=== PATIENT | male | born 1930 | race Caucasian/White ===

== ENCOUNTER 2017-12-22 18:17 | Inpatient (IN) | payer MEDICARE, MEDICAID ==
[2017-12-22] MEDS ORDERED: Sodium Chloride 0.9% 1,000 ML IV ONE (19:24)
--- NOTE | 2017-12-22 19:30 | C.PDOC ---
History Of Present Illness 87 year old male presents to the emergency department with symptoms of an upper respiratory illness. Patient is a [facility] resident with known dementia and has been bed-bound for the last four years. Patient is experiencing increased lethargy with cough, fever, and nasal congestion for the last several days. Patient is also experiencing decreased attention, and is unable to provide any history due to his dementia. Patient's history was obtained from his son. Time Seen by Provider: 12/22/17 19:18 Chief Complaint (Nursing): Cough, Cold, Congestion History Per: Family (son) History/Exam Limitations: no limitations Onset/Duration Of Symptoms: Days Current Symptoms Are (Timing): Still Present Associated Symptoms: Fever, Cough, Nasal Congestion, Other (lethargy) Past Medical History Reviewed: Historical Data, Nursing Documentation, Vital Signs Vital Signs: Last Vital Signs Temp 98.7 F 12/23/17 01:42 Pulse 84 12/23/17 01:42 Resp 20 12/23/17 02:28 BP 105/56 L 12/23/17 01:42 Pulse Ox 98 12/23/17 02:28 - Medical History PMH: Alzheimer's Disease, HTN, Hyperlipidemia, Parkinson's Disease Surgical History: No Surg Hx, Pacemaker - [facility] Procedures INDIVID PSYCHOTHERAP NEC (02/27/14) Family History: States: No Known Family Hx - Social History Hx Alcohol Use: No Hx Substance Use: No - Immunization History Hx Tetanus Toxoid Vaccination: No Hx Influenza Vaccination: No Review Of Systems Review Of Systems: ROS cannot be obtained secondary to pt's inabilty to answer questions. Physical Exam - Physical Exam Appears: Non-toxic (afebrile), In Acute Distress (patient appears emaciated) Skin: Warm, Dry, Other (decreased turgor, no breakdown of skin appreciated) Head: Atraumatic, Normacephalic Eye(s): bilateral: Normal Inspection Ear(s): Bilateral: Normal Oral Mucosa: Dry (mild), No Drooling Throat: Normal, No Erythema, No Drooling Chest: Symmetrical, Other (left chest wall ) Cardiovascular: Rhythm Regular (within normal limits) Respiratory: Normal Breath Sounds (clear to auscultation bilaterally), No Stridor Gastrointestinal/Abdominal: Soft, No Tenderness, No Guarding, No Rebound Pulses: Left Radial: Normal, Right Radial: Normal, Left Dorsalis Pedis: Normal, Right Dorsalis Pedis: Normal Neurological/Psych: Other (nonverbal, responds to tactile stimuli with groans. Sensory exam cannot be assessed ) ED Course And Treatment - Laboratory Results Result Diagrams: 12/22/17 19:43 12/22/17 19:43 O2 Sat by Pulse Oximetry: 96 (RA) Pulse Ox Interpretation: Normal Medical Decision Making Medical Decision Making: Plan: CMP Lactic Acid Plasma CBC CXR One View NaCl IV Fluids Blood Culture Urinalysis Basic labs to be done, imaging to be obtained, patient will be re-evaluated. Impression: URI vs. Dehydration Patient's lab result in hypernatremia, severe dehydration, as well as severe pre -renal azotemia. Disposition - Disposition Disposition: HOSPITALIZED Disposition Time: 05:20 Condition: FAIR - Clinical Impression Clinical Impression: Pneumonia, Dehydration - Scribe Statement The provider has reviewed the documentation as recorded by the Scribe (Fede Hurtado) Provider Attestation: All medical record entries made by the Scribe were at my direction and personally dictated by me. I have reviewed the chart and agree that the record accurately reflects my personal performance of the history, physical exam, medical decision making, and the department course for this patient. I have also personally directed, reviewed, and agree with the discharge instructions and disposition.
--- NOTE | 2017-12-22 19:30 | C.PDOC ---
HPI: Influenza Time Seen by Provider: 12/22/17 19:18 Chief Complaint: Cough, Cold, Congestion Past Medical History Vital Signs: Last Vital Signs Temp 98.3 F 12/22/17 18:28 Pulse 82 12/22/17 18:28 Resp 20 12/22/17 18:28 BP 113/64 12/22/17 18:28 Pulse Ox 96 12/22/17 18:28 - Medical History PMH: Alzheimer's Disease, HTN, Hyperlipidemia, Parkinson's Disease Surgical History: Pacemaker - [facility] Procedures INDIVID PSYCHOTHERAP NEC (02/27/14) - Social History Hx Alcohol Use: No Hx Substance Use: No - Immunization History Hx Tetanus Toxoid Vaccination: No Hx Influenza Vaccination: No - ECG O2 Sat by Pulse Oximetry: 96 Disposition - Disposition
[2017-12-22] MEDS ORDERED: Sodium Chloride 0.9% 1,000 ML ONE (19:46)
[2017-12-22 19:48] LABS: BASO # 0.1 K/uL (0.0-0.2); BASO % 0.6 % (0.0-2.0); EOS # 0.1 K/uL (0.0-0.7); EOS % 1.2 % (0.0-4.0); HEMOGLOBIN 14.4 g/dL (12.0-18.0); LYMPH # 1.3 K/uL (1.0-4.3); LYMPH % 11.8 % (20.0-40.0); MEAN CELL VOLUME 94.8 fL (80.0-94.0); MEAN CORPUSCULAR HEMOGLOBIN 31.8 pg (27.0-31.0); MEAN CORPUSCULAR HGB CONC 33.5 g/dL (33.0-37.0); MEAN PLATELET VOLUME 9.9 fL (7.2-11.7); MONO # 0.3 K/uL (0.0-0.8); MONO % 2.9 % (0.0-10.0); NEUT % 83.5 % (50.0-75.0); RBC 4.52 Mil/uL (4.40-5.90); RED CELL DISTRIBUTION WIDTH 14.6 % (11.5-14.5); WHITE BLOOD COUNT 10.8 K/uL (4.8-10.8)
[2017-12-22 19:59] LABS: ALB/GLOB RATIO 1.1 (1.0-2.1); ALBUMIN 3.6 g/dL (3.5-5.0)
[2017-12-22] MEDS ORDERED: Azithromycin 500 MG in Sodium Chloride 0.9% 250 ML IVPB STA (21:30)
[2017-12-22] MEDS ORDERED: cefTRIAXone IV 1 gm in Dextros 0 ML IVPB ONE (21:41)
[2017-12-22] MEDS ORDERED: Sodium Chloride 0.9% 1,000 ML IV SCH ×2 (22:30→22:32)
[2017-12-23] MEDS ORDERED: Sodium Chloride 0.9% 1,000 ML ONE (00:19)
[2017-12-23] MEDS: Piperacill/Tazo 2.25gm in Dex 2.25 GM/50 ML BAG IVPB SCH ×5 (00:30→21:54)
[2017-12-23] MEDS: Carbidopa/Levodopa 25/250 PO SCH ×3 (06:21→21:24)
--- NOTE | 2017-12-23 08:49 | CP.PCM.HP ---
History of Present Illness - History of Present Illness History of Present Illness: History Of Present Illness 87 year old male presents to the emergency department with symptoms of an upper respiratory illness. Patient is a [facility] resident with known dementia and has been bed-bound for the last four years. Patient is experiencing increased lethargy with cough, fever, and nasal congestion for the last several days. Patient is also experiencing decreased attention, and is unable to provide any history due to his dementia. Patient's history was obtained from his son Present on Admission - Present on Admission Any Indicators Present on Admission: No Past Patient History - Past Medical History & Family History Past Medical History?: Yes - Past Social History Smoking Status: Never Smoked - CARDIAC Hx Hypertension: Yes Hx Pacemaker: Yes - PULMONARY Hx Respiratory Disorders: No - NEUROLOGICAL Hx Alzheimer's Disease: Yes Hx Parkinson's Disease: Yes - HEENT Hx HEENT Problems: No - RENAL Hx Chronic Kidney Disease: Yes Other/Comment: Chronic kidney dis.,BPH, - ENDOCRINE/METABOLIC Hx Endocrine Disorders: No - HEMATOLOGICAL/ONCOLOGICAL Hx Blood Disorders: No - INTEGUMENTARY Hx Dermatological Problems: No - MUSCULOSKELETAL/RHEUMATOLOGICAL Hx Falls: No - GASTROINTESTINAL Hx Gastrointestinal Disorders: No - GENITOURINARY/GYNECOLOGICAL Hx Genitourinary Disorders: Yes Hx Incontinence: Yes Hx Prostate Problems: Yes (BPH) - PSYCHIATRIC Hx Substance Use: No - SURGICAL HISTORY Hx Surgeries: Yes Other/Comment: Pacemaker insertion - ANESTHESIA Hx Anesthesia: Yes Hx Anesthesia Reactions: No Hx Malignant Hyperthermia: No Has any member of the family had a problem w/ anesthesia?: No Meds Allergies/Adverse Reactions: Allergies Allergy/AdvReac Type Severity Reaction Status Date / Time No Known Allergies Allergy Unverified 12/22/17 18:31 Results - Vital Signs Recent Vital Signs: Last Vital Signs Temp 98.7 F 12/23/17 07:00 Pulse 81 12/23/17 07:00 Resp 20 12/23/17 07:00 BP 105/63 12/23/17 07:00 Pulse Ox 98 12/23/17 07:00 - Labs Result Diagrams: 12/22/17 19:43 12/22/17 19:43 Labs: Laboratory Results - last 24 hr 12/22/17 12/22/17 12/22/17 19:43 19:43 20:08 WBC 10.8 RBC 4.52 Hgb 14.4 Hct 42.8 MCV 94.8 H MCH 31.8 H MCHC 33.5 RDW 14.6 H Plt Count 215 MPV 9.9 Neut % (Auto) 83.5 H Lymph % (Auto) 11.8 L [place] % (Auto) 2.9 Eos % (Auto) 1.2 Baso % (Auto) 0.6 Neut # (Auto) 9.0 H Lymph # (Auto) 1.3 [place] # (Auto) 0.3 Eos # (Auto) 0.1 Baso # (Auto) 0.1 Sodium 150 H Potassium 4.4 Chloride 110 H Carbon Dioxide 28 Anion Gap 17 BUN 76 H Creatinine 2.8 H Est GFR ( Amer) 26 Est GFR (Non-Af Amer) 22 Random Glucose 104 Lactic Acid 2.2 H Calcium 9.0 Total Bilirubin 0.9 AST 23 ALT 15 L Alkaline Phosphatase 125 Total Protein 6.7 Albumin 3.6 Globulin 3.1 Albumin/Globulin Ratio 1.1
[2017-12-23] MEDS ORDERED: PIMAVANSERIN TARTRATE PO SCH (10:00)
[2017-12-23] MEDS ORDERED: RASAGILINE MESYLATE 1 MG PO SCH (10:00)
--- NOTE | 2017-12-23 11:10 | RAD ---
PROCEDURE: CHEST RADIOGRAPH, 1 VIEW HISTORY: SOB COMPARISON: None available. FINDINGS: LUNGS: The lungs are well inflated. There is consolidation in the right lower lobe. PLEURA: No pneumothorax or pleural fluid seen. CARDIOVASCULAR: The heart is normal in size. There is a left-sided dual lead transvenous permanent pacing device OSSEOUS STRUCTURES: No significant abnormalities. VISUALIZED UPPER ABDOMEN: Normal. OTHER FINDINGS: None. IMPRESSION: Suspect right lower lobe pneumonia. Follow-up to resolution is advised.
[2017-12-23] MEDS ORDERED: Dextrose 5%/0.45% NS 1,000 ML IV SCH (12:00)
[2017-12-23 14:14] LABS: BASO % 0.3 % (0.0-2.0); EOS # 0.1 K/uL (0.0-0.7); EOS % 0.7 % (0.0-4.0); HEMOGLOBIN 12.2 g/dL (12.0-18.0); LYMPH # 1.5 K/uL (1.0-4.3); LYMPH % 9.5 % (20.0-40.0); MEAN CELL VOLUME 94.7 fL (80.0-94.0); MEAN CORPUSCULAR HEMOGLOBIN 31.6 pg (27.0-31.0); MEAN CORPUSCULAR HGB CONC 33.4 g/dL (33.0-37.0); MEAN PLATELET VOLUME 9.9 fL (7.2-11.7); MONO # 0.6 K/uL (0.0-0.8); MONO % 3.9 % (0.0-10.0); NEUT # 13.9 K/uL (1.8-7.0); NEUT % 85.6 % (50.0-75.0); NRBC % 0.1 % (0.0-2.0); PLATELET COUNT 200 K/uL (130-400); RBC 3.87 Mil/uL (4.40-5.90); RED CELL DISTRIBUTION WIDTH 14.2 % (11.5-14.5); WHITE BLOOD COUNT 16.2 K/uL (4.8-10.8)
[2017-12-23 14:39] LABS: CALCIUM 8.4 mg/dl (8.6-10.4)
[2017-12-23 14:41] LABS: EOSINOPHIL 1 % (0-4); LYMPHOCYTE 7 % (20-40); MONOCYTE 5 % (0-10); NEUTROPHIL 87 % (50-75); TOTAL CELLS COUNTED 100
[2017-12-23 14:42] LABS: PLATELET ESTIMATE NORMAL (NORMAL)
--- NOTE | 2017-12-23 15:38 | CP.PCM.CON ---
History of Present Illness - History of Present Illness History of Present Illness: Reason for Consult: Pneumonia A 89 year old male with PMHx of Alzheimer's Disease, Parkinson's Disease, HTN, and hyperlipidemia, presented to the ED for symptoms of an upper respiratory infection. Patient is unable to provide history due to dementia. According to ED note, patient has been living in a custodial for four years and is bed bound. He has been experiencing cough, fever, and nasal congestion with increased lethargy for several days. Review of systems unobtainable. PMHx: Alzheimer's Disease, Parkinson's Disease, HTN, HLD Allergies: NKDA Medications: Tamsulosin, Sensipar 30mg, Rasagiline mesylate 1mg, Oxybutynin 5mg , Pimavanserin tartrate, Lopressor 25mg, Ensure, Carbidopa/Levodopa 1 tab Q8, Calcitriol 0.25mL daily PSH: Pacemaker Social Hx: Lives in a custodial. Assessment/Plan: 1. Pneumonia CXR 12/22: Suspect right lower lobe pneumonia. Follow-up to resolution is advised. Afebrile since arrival. Lactic Acid 12/22: 2.2 WBC 12/22: 10.8 - Continue Piperacillin-Tazobactam 2. Hypernatremia -Management by primary team 3. Alzheimer's Disease -Management by primary team 4. Hypertension -Management by primary team 5. Parkinson's Disease -Management by primary team Past Patient History - Past Medical History & Family History Past Medical History?: Yes - Past Social History Smoking Status: Never Smoked - CARDIAC Hx Hypertension: Yes - PULMONARY Hx Respiratory Disorders: No - NEUROLOGICAL Hx Alzheimer's Disease: Yes Hx Parkinson's Disease: Yes - HEENT Hx HEENT Problems: No - RENAL Hx Chronic Kidney Disease: Yes Other/Comment: Chronic kidney dis.,BPH, - ENDOCRINE/METABOLIC Hx Endocrine Disorders: No - HEMATOLOGICAL/ONCOLOGICAL Hx Blood Disorders: No - INTEGUMENTARY Hx Dermatological Problems: No - MUSCULOSKELETAL/RHEUMATOLOGICAL Hx Falls: No - GASTROINTESTINAL Hx Gastrointestinal Disorders: No - GENITOURINARY/GYNECOLOGICAL Hx Genitourinary Disorders: Yes Hx Incontinence: Yes Hx Prostate Problems: Yes (BPH) - PSYCHIATRIC Hx Substance Use: No - SURGICAL HISTORY Hx Surgeries: Yes Other/Comment: Pacemaker insertion - ANESTHESIA Hx Anesthesia: Yes Hx Anesthesia Reactions: No Hx Malignant Hyperthermia: No Has any member of the family had a problem w/ anesthesia?: No Meds Allergies/Adverse Reactions: Allergies Allergy/AdvReac Type Severity Reaction Status Date / Time No Known Allergies Allergy Unverified 12/22/17 18:31 - Medications Medications: Current Medications Calcitriol (Rocaltrol) 0.25 mcg PO DAILY [facility] Last Admin: 12/23/17 11:27 Dose: 0.25 mcg Carbidopa/Levodopa (Sinemet) 1 tab PO Q8 [facility] Last Admin: 12/23/17 14:39 Dose: 1 tab Cinacalcet (Sensipar) 30 mg PO DAILY [facility] Last Admin: 12/23/17 11:27 Dose: 30 mg Heparin Sodium (Porcine) (Heparin) 5,000 units SC Q8 COUNT [facility]CLUD[facility] Last Admin: 12/23/17 14:13 Dose: 5,000 units Home Med (Pimavanserin Tartrate [Nuplazid]) 2 tab PO DAILY COUNT [facility]CLUDES THE [facility] Home Med (Rasagiline Mesylate [Rasagiline Mesylate]) 1 mg PO DAILY COUNT INCLUDES THE [facility] Piperacillin Sod/Tazobactam Sod (Zosyn 2.25 Gm Iv Premix) 2.25 gm in 50 mls @ 100 mls/hr IVPB Q6H COUNT [facility]CLUD[facility] PRN Reason: Protocol Last Admin: 12/23/17 11:29 Dose: 100 mls/hr Dextrose/Sodium Chloride (Dextrose 5%/0.45% Ns 1000 Ml) 1,000 mls @ 80 mls/hr IV .[id number] COUNT [facility]CLUDES [facility] Last Admin: 12/23/17 12:30 Dose: 80 mls/hr Metoprolol Tartrate (Lopressor) 25 mg PO DAILY [facility] Last Admin: 12/23/17 11:16 Dose: 25 mg Oxybutynin Chloride (Ditropan Tab) 5 mg PO DAILY [facility] Last Admin: 12/23/17 11:28 Dose: 5 mg Tamsulosin HCl (Flomax) 0.4 mg PO DAILY [facility] Last Admin: 12/23/17 11:16 Dose: 0.4 mg Results - Vital Signs Recent Vital Signs: Last Vital Signs Temp 98.7 F 12/23/17 07:00 Pulse 81 12/23/17 07:00 Resp 20 12/23/17 07:00 BP 105/63 12/23/17 11:16 Pulse Ox 98 12/23/17 07:00 - Labs Result Diagrams: 12/23/17 14:04 12/23/17 14:04 Labs: Laboratory Results - last 24 hr 12/22/17 12/22/17 12/22/17 19:43 19:43 20:08 WBC 10.8 RBC 4.52 Hgb 14.4 Hct 42.8 MCV 94.8 H MCH 31.8 H MCHC 33.5 RDW 14.6 H Plt Count 215 MPV 9.9 Neut % (Auto) 83.5 H Lymph % (Auto) 11.8 L [place] % (Auto) 2.9 Eos % (Auto) 1.2 Baso % (Auto) 0.6 Neut # (Auto) 9.0 H Lymph # (Auto) 1.3 [place] # (Auto) 0.3 Eos # (Auto) 0.1 Baso # (Auto) 0.1 Neutrophils % (Manual) Lymphocytes % (Manual) Monocytes % (Manual) Eosinophils % (Manual) Platelet Estimate RBC Morphology Sodium 150 H Potassium 4.4 Chloride 110 H Carbon Dioxide 28 Anion Gap 17 BUN 76 H Creatinine 2.8 H Est GFR ( Amer) 26 Est GFR (Non-Af Amer) 22 Random Glucose 104 Lactic Acid 2.2 H Calcium 9.0 Total Bilirubin 0.9 AST 23 ALT 15 L Alkaline Phosphatase 125 Total Protein 6.7 Albumin 3.6 Globulin 3.1 Albumin/Globulin Ratio 1.1 12/23/17 12/23/17 12/23/17 14:04 14:04 14:04 WBC 16.2 H RBC 3.87 L Hgb 12.2 D Hct 36.6 MCV 94.7 H MCH 31.6 H MCHC 33.4 RDW 14.2 Plt Count 200 MPV 9.9 Neut % (Auto) 85.6 H Lymph % (Auto) 9.5 L [place] % (Auto) 3.9 Eos % (Auto) 0.7 Baso % (Auto) 0.3 Neut # (Auto) 13.9 H Lymph # (Auto) 1.5 [place] # (Auto) 0.6 Eos # (Auto) 0.1 Baso # (Auto) 0.0 Neutrophils % (Manual) 87 H Lymphocytes % (Manual) 7 L Monocytes % (Manual) 5 Eosinophils % (Manual) 1 Platelet Estimate Normal RBC Morphology Normal Sodium 153 H Potassium 4.4 Chloride 111 H Carbon Dioxide 27 Anion Gap 19 BUN 66 H Creatinine 2.7 H Est GFR ( Amer) 27 Est GFR (Non-Af Amer) 23 Random Glucose 86 Lactic Acid 1.6 Calcium 8.4 L Total Bilirubin AST ALT Alkaline Phosphatase Total Protein Albumin Globulin Albumin/Globulin Ratio
[2017-12-23] MEDS: Dextrose 5%/0.45% NS 1,000 ML IV SCH (16:35)
[2017-12-23] MEDS: Sodium Chloride 0.45% 1,000 ML IV SCH ×4 (17:45→20:30)
[2017-12-23 19:35] LABS: SQUAMOUS EPITHIAL < 1 /hpf (0-5); URINE BACTERIA RARE (<OCC); URINE BILIRUBIN NEGATIVE (NEGATIVE); URINE BLOOD NEGATIVE (NEGATIVE); URINE CLARITY Clear (Clear); URINE COLOR Yellow (YELLOW); URINE GLUCOSE (UA) NORMAL (Normal); URINE LEUKOCYTE ESTERASE TRACE Leu/uL (Negative); URINE PROTEIN NEGATIVE (NEGATIVE); URINE UROBILINOGEN NORMAL mg/dL (0.2-1.0)
--- NOTE | 2017-12-24 00:36 | CP.PCM.PN ---
Subjective - Date & Time of Evaluation Date of Evaluation: 12/23/17 Time of Evaluation: 18:00 - Subjective Subjective: pt seen and examined c/o cough, fever, and nasal congestion with increased lethargy for several days. Objective - Vital Signs/Intake and Output Vital Signs (last 24 hours): Temp Pulse Resp BP Pulse Ox 97.9 F 71 20 96/61 L 98 12/23/17 23:59 12/23/17 23:59 12/23/17 23:59 12/23/17 23:59 12/23/17 23:59 Intake and Output: 12/23/17 12/24/17 18:59 06:59 Intake Total 730 1310 Output Total 100 Balance 730 1210 - Medications Medications: Current Medications Calcitriol (Rocaltrol) 0.25 mcg PO DAILY [facility] Last Admin: 12/23/17 11:27 Dose: 0.25 mcg Carbidopa/Levodopa (Sinemet) 1 tab PO Q8 [facility] Last Admin: 12/23/17 21:24 Dose: 1 tab Cinacalcet (Sensipar) 30 mg PO DAILY [facility] Last Admin: 12/23/17 11:27 Dose: 30 mg Heparin Sodium (Porcine) (Heparin) 5,000 units SC Q8 [facility] Last Admin: 12/23/17 21:24 Dose: 5,000 units Piperacillin Sod/Tazobactam Sod (Zosyn 2.25 Gm Iv Premix) 2.25 gm in 50 mls @ 100 mls/hr IVPB Q6H [facility] PRN Reason: Protocol Last Admin: 12/23/17 21:54 Dose: 100 mls/hr Dextrose/Sodium Chloride (Dextrose 5%/0.45% Ns 1000 Ml) 1,000 mls @ 100 mls/hr IV .Q10H [facility] Last Admin: 12/23/17 16:35 Dose: 100 mls/hr Metoprolol Tartrate (Lopressor) 25 mg PO DAILY [facility] Oxybutynin Chloride (Ditropan Tab) 5 mg PO DAILY [facility] Last Admin: 12/23/17 11:28 Dose: 5 mg Tamsulosin HCl (Flomax) 0.4 mg PO DAILY [facility] Last Admin: 12/23/17 11:16 Dose: 0.4 mg - Labs Labs: 12/23/17 14:04 12/23/17 14:04 - Constitutional Appears: No Acute Distress - Head Exam Head Exam: ATRAUMATIC, NORMAL INSPECTION, NORMOCEPHALIC - Eye Exam Eye Exam: EOMI, Normal appearance, PERRL Pupil Exam: NORMAL ACCOMODATION, PERRL - Respiratory Exam Respiratory Exam: Clear to Ausculation Bilateral, NORMAL BREATHING PATTERN - Cardiovascular Exam Cardiovascular Exam: REGULAR RHYTHM, +S1, +S2. absent: Murmur - GI/Abdominal Exam GI & Abdominal Exam: Soft, Normal Bowel Sounds. absent: Tenderness - Rectal Exam Rectal Exam: Deferred Assessment and Plan (1) Alzheimer disease Status: Acute (2) Parkinsons disease Status: Acute (3) Dehydration Status: Acute (4) Pneumonia Status: Acute
[2017-12-24] MEDS: Dextrose 5%/0.45% NS 1,000 ML IV SCH ×4 (01:38→22:06)
[2017-12-24] MEDS: Piperacill/Tazo 2.25gm in Dex 2.25 GM/50 ML BAG IVPB SCH ×4 (04:16→22:00)
[2017-12-24] MEDS: Carbidopa/Levodopa 25/250 PO SCH ×3 (05:26→21:54)
[2017-12-24 07:39] LABS: BASO % 0.4 % (0.0-2.0); EOS # 0.3 K/uL (0.0-0.7); EOS % 3.2 % (0.0-4.0); HEMOGLOBIN 10.9 g/dL (12.0-18.0); LYMPH # 1.1 K/uL (1.0-4.3); LYMPH % 13.2 % (20.0-40.0); MEAN CELL VOLUME 94.8 fL (80.0-94.0); MEAN CORPUSCULAR HEMOGLOBIN 31.7 pg (27.0-31.0); MEAN CORPUSCULAR HGB CONC 33.5 g/dL (33.0-37.0); MEAN PLATELET VOLUME 9.9 fL (7.2-11.7); MONO # 0.5 K/uL (0.0-0.8); MONO % 5.6 % (0.0-10.0); NEUT # 6.6 K/uL (1.8-7.0); NEUT % 77.6 % (50.0-75.0); RBC 3.45 Mil/uL (4.40-5.90); RED CELL DISTRIBUTION WIDTH 14.3 % (11.5-14.5); WHITE BLOOD COUNT 8.5 K/uL (4.8-10.8)
[2017-12-24 07:46] LABS: CALCIUM 7.7 mg/dl (8.6-10.4)
--- NOTE | 2017-12-24 14:33 | CARD ---
APPROVED REPORT EKG Measurement Heart [id number] 172P [id number] <Conclusion> AV dual-paced rhythm Abnormal ECG
--- NOTE | 2017-12-24 17:03 | CP.PCM.PN ---
Subjective - Date & Time of Evaluation Date of Evaluation: 12/24/17 Time of Evaluation: 12:30 - Subjective Subjective: Patient seen and examined at bedside today Patient resting comfortably in bed in no distress. Patient more alert during exam today. Patient denies shortness of breath, cough, or chest pain. Patient has no complaints Assessment/Plan: 1. Pneumonia, improving CXR 12/22: Suspect right lower lobe pneumonia. Follow-up to resolution is advised. WBC down-trending, 12/24: 8.5 (down from 10.8) Continues to be Afebrile. Lactic Acid decreased, repeat 12/23: 1.6 - Continue Piperacillin-Tazobactam 2. Hypernatremia, resolved 3. Alzheimer's Disease -Management by primary team 4. Hypertension -Management by primary team 5. Parkinson's Disease -Management by primary team Objective - Vital Signs/Intake and Output Vital Signs (last 24 hours): Temp Pulse Resp BP Pulse Ox 97.3 F L 86 20 92/60 L 96 12/24/17 07:44 12/24/17 07:44 12/24/17 07:44 12/24/17 10:29 12/24/17 07:44 Intake and Output: 12/24/17 12/24/17 06:59 18:59 Intake Total 2230 1040 Output Total 600 800 Balance 1630 240 - Medications Medications: Current Medications Calcitriol (Rocaltrol) 0.25 mcg PO DAILY [facility] Last Admin: 12/24/17 10:29 Dose: 0.25 mcg Carbidopa/Levodopa (Sinemet) 1 tab PO Q8 [facility] Last Admin: 12/24/17 13:53 Dose: 1 tab Cinacalcet (Sensipar) 30 mg PO DAILY [facility] Last Admin: 12/24/17 10:29 Dose: 30 mg Heparin Sodium (Porcine) (Heparin) 5,000 units SC Q8 [facility] Last Admin: 12/24/17 13:51 Dose: 5,000 units Piperacillin Sod/Tazobactam Sod (Zosyn 2.25 Gm Iv Premix) 2.25 gm in 50 mls @ 100 mls/hr IVPB Q6H [facility] PRN Reason: Protocol Last Admin: 12/24/17 16:13 Dose: 100 mls/hr Dextrose/Sodium Chloride (Dextrose 5%/0.45% Ns 1000 Ml) 1,000 mls @ 100 mls/hr IV .Q10H [facility] Last Admin: 12/24/17 13:51 Dose: 100 mls/hr Oxybutynin Chloride (Ditropan Tab) 5 mg PO DAILY [facility] Last Admin: 12/24/17 10:29 Dose: 5 mg Tamsulosin HCl (Flomax) 0.4 mg PO DAILY [facility] Last Admin: 12/24/17 10:29 Dose: 0.4 mg - Labs Labs: 12/24/17 07:22 12/24/17 07:22
--- NOTE | 2017-12-24 23:43 | CP.PCM.PN ---
Subjective - Date & Time of Evaluation Date of Evaluation: 12/24/17 Time of Evaluation: 18:40 - Subjective Subjective: Pt seen and examined at bedside, afebrile,is confused,but more alert then before , some of his answers are appropriate, pt is on antibiotics, nebulizer treatment for pneumonia Objective - Vital Signs/Intake and Output Vital Signs (last 24 hours): Temp Pulse Resp BP Pulse Ox 97.5 F L 87 20 114/69 95 12/24/17 15:00 12/24/17 15:00 12/24/17 15:00 12/24/17 15:00 12/24/17 15:00 Intake and Output: 12/24/17 12/25/17 18:59 06:59 Intake Total 1040 800 Output Total 800 Balance 240 800 - Medications Medications: Current Medications Calcitriol (Rocaltrol) 0.25 mcg PO DAILY [facility] Last Admin: 12/24/17 10:29 Dose: 0.25 mcg Carbidopa/Levodopa (Sinemet) 1 tab PO Q8 [facility] Last Admin: 12/24/17 21:54 Dose: 1 tab Cinacalcet (Sensipar) 30 mg PO DAILY [facility] Last Admin: 12/24/17 10:29 Dose: 30 mg Heparin Sodium (Porcine) (Heparin) 5,000 units SC Q8 [facility] Last Admin: 12/24/17 21:53 Dose: 5,000 units Piperacillin Sod/Tazobactam Sod (Zosyn 2.25 Gm Iv Premix) 2.25 gm in 50 mls @ 100 mls/hr IVPB Q6H [facility] PRN Reason: Protocol Last Admin: 12/24/17 16:13 Dose: 100 mls/hr Dextrose/Sodium Chloride (Dextrose 5%/0.45% Ns 1000 Ml) 1,000 mls @ 100 mls/hr IV .Q10H [facility] Last Admin: 12/24/17 22:06 Dose: Not Given Oxybutynin Chloride (Ditropan Tab) 5 mg PO DAILY [facility] Last Admin: 12/24/17 10:29 Dose: 5 mg Tamsulosin HCl (Flomax) 0.4 mg PO DAILY [facility] Last Admin: 12/24/17 10:29 Dose: 0.4 mg - Labs Labs: 12/24/17 07:22 12/24/17 07:22 - Constitutional Appears: No Acute Distress - Head Exam Head Exam: ATRAUMATIC, NORMAL INSPECTION, NORMOCEPHALIC - Eye Exam Eye Exam: EOMI, Normal appearance, PERRL Pupil Exam: NORMAL ACCOMODATION, PERRL - Respiratory Exam Respiratory Exam: Decreased Breath Sounds, Rales, Rhonchi Additional comments: b/l scattered rales - Cardiovascular Exam Cardiovascular Exam: REGULAR RHYTHM, +S1, +S2. absent: Murmur - GI/Abdominal Exam GI & Abdominal Exam: Soft, Normal Bowel Sounds. absent: Tenderness - Neurological Exam Neurological Exam: Alert, Oriented x3 - Skin Skin Exam: Dry, Intact, Normal Color, Warm Assessment and Plan (1) Alzheimer disease Status: Acute (2) Parkinsons disease Status: Acute (3) Dehydration Status: Acute (4) Pneumonia Assessment & Plan: antibiotics pulmonary follow up nebulizer treatment Status: Acute
[2017-12-25] MEDS: Dextrose 5%/0.45% NS 1,000 ML IV SCH ×2 (02:00→13:30)
[2017-12-25] MEDS: Piperacill/Tazo 2.25gm in Dex 2.25 GM/50 ML BAG IVPB SCH ×4 (04:00→22:30)
[2017-12-25] MEDS: Carbidopa/Levodopa 25/250 PO SCH ×3 (05:45→22:11)
[2017-12-25 07:40] LABS: BASO % 0.4 % (0.0-2.0); EOS # 0.2 K/uL (0.0-0.7); EOS % 4.2 % (0.0-4.0); HEMOGLOBIN 11.8 g/dL (12.0-18.0); LYMPH # 0.8 K/uL (1.0-4.3); LYMPH % 14.1 % (20.0-40.0); MEAN CELL VOLUME 93.2 fL (80.0-94.0); MEAN CORPUSCULAR HEMOGLOBIN 32.1 pg (27.0-31.0); MEAN CORPUSCULAR HGB CONC 34.4 g/dL (33.0-37.0); MONO # 0.3 K/uL (0.0-0.8); MONO % 5.5 % (0.0-10.0); NEUT # 4.4 K/uL (1.8-7.0); NEUT % 75.8 % (50.0-75.0); RBC 3.69 Mil/uL (4.40-5.90); WHITE BLOOD COUNT 5.8 K/uL (4.8-10.8)
[2017-12-25 07:48] LABS: CALCIUM 7.7 mg/dl (8.6-10.4)
--- NOTE | 2017-12-25 17:38 | CP.PCM.PN ---
Subjective - Date & Time of Evaluation Date of Evaluation: 12/25/17 Time of Evaluation: 11:40 - Subjective Subjective: Patient seen and examined at bedside today Patient resting comfortably in bed in no distress. Patient unable to answer questions due to mental status. Assessment/Plan: 1. Pneumonia, improving - Repeat CXR - Continue Antibiotics Objective - Vital Signs/Intake and Output Vital Signs (last 24 hours): Temp Pulse Resp BP Pulse Ox 97.5 F L 86 20 117/69 95 12/25/17 15:00 12/25/17 15:00 12/25/17 15:00 12/25/17 15:00 12/25/17 15:00 Intake and Output: 12/25/17 12/25/17 06:59 18:59 Intake Total 1800 1000 Output Total 700 400 Balance 1100 600 - Medications Medications: Current Medications Calcitriol (Rocaltrol) 0.25 mcg PO DAILY [facility] Last Admin: 12/25/17 10:50 Dose: 0.25 mcg Carbidopa/Levodopa (Sinemet) 1 tab PO Q8 [facility] Last Admin: 12/25/17 13:30 Dose: 1 tab Cinacalcet (Sensipar) 30 mg PO DAILY [facility] Last Admin: 12/25/17 10:49 Dose: 30 mg Heparin Sodium (Porcine) (Heparin) 5,000 units SC Q8 [facility] Last Admin: 12/25/17 13:32 Dose: 5,000 units Piperacillin Sod/Tazobactam Sod (Zosyn 2.25 Gm Iv Premix) 2.25 gm in 50 mls @ 100 mls/hr IVPB Q6H [facility] PRN Reason: Protocol Last Admin: 12/25/17 17:09 Dose: 100 mls/hr Dextrose/Sodium Chloride (Dextrose 5%/0.45% Ns 1000 Ml) 1,000 mls @ 100 mls/hr IV .Q10H [facility] Last Admin: 12/25/17 13:30 Dose: 100 mls/hr Oxybutynin Chloride (Ditropan Tab) 5 mg PO DAILY [facility] Last Admin: 12/25/17 10:50 Dose: 5 mg Tamsulosin HCl (Flomax) 0.4 mg PO DAILY [facility] Last Admin: 12/25/17 10:50 Dose: 0.4 mg - Labs Labs: 12/25/17 07:20 12/25/17 07:20
[2017-12-26] MEDS: Dextrose 5%/0.45% NS 1,000 ML IV SCH ×4 (01:27→13:41)
[2017-12-26] MEDS: Piperacill/Tazo 2.25gm in Dex 2.25 GM/50 ML BAG IVPB SCH ×4 (04:59→21:32)
[2017-12-26] MEDS: Carbidopa/Levodopa 25/250 PO SCH ×3 (05:03→21:32)
--- NOTE | 2017-12-26 05:26 | CP.PCM.PN ---
Subjective - Date & Time of Evaluation Date of Evaluation: 12/25/17 Time of Evaluation: 19:00 - Subjective Subjective: Patient seen and examined at bedside today, Patient resting comfortably in bed in no distress. Patient unable to answer questions due to mental status.Pneumonia, improving, pt is for Repeat CXR and Continue Antibiotics Objective - Vital Signs/Intake and Output Vital Signs (last 24 hours): Temp Pulse Resp BP Pulse Ox 98 F 63 18 121/80 98 12/25/17 23:12 12/25/17 23:12 12/25/17 23:12 12/25/17 23:12 12/25/17 23:12 Intake and Output: 12/25/17 12/26/17 18:59 06:59 Intake Total 1000 850 Output Total 400 Balance 600 850 - Medications Medications: Current Medications Calcitriol (Rocaltrol) 0.25 mcg PO DAILY [facility] Last Admin: 12/25/17 10:50 Dose: 0.25 mcg Carbidopa/Levodopa (Sinemet) 1 tab PO Q8 [facility] Last Admin: 12/26/17 05:03 Dose: 1 tab Cinacalcet (Sensipar) 30 mg PO DAILY [facility] Last Admin: 12/25/17 10:49 Dose: 30 mg Heparin Sodium (Porcine) (Heparin) 5,000 units SC Q8 [facility] Last Admin: 12/26/17 05:03 Dose: 5,000 units Piperacillin Sod/Tazobactam Sod (Zosyn 2.25 Gm Iv Premix) 2.25 gm in 50 mls @ 100 mls/hr IVPB Q6H [facility] PRN Reason: Protocol Last Admin: 12/26/17 04:59 Dose: 100 mls/hr Dextrose/Sodium Chloride (Dextrose 5%/0.45% Ns 1000 Ml) 1,000 mls @ 100 mls/hr IV .Q10H [facility] Last Admin: 12/26/17 04:15 Dose: Not Given Oxybutynin Chloride (Ditropan Tab) 5 mg PO DAILY [facility] Last Admin: 12/25/17 10:50 Dose: 5 mg Tamsulosin HCl (Flomax) 0.4 mg PO DAILY [facility] Last Admin: 12/25/17 10:50 Dose: 0.4 mg - Labs Labs: 12/25/17 07:20 12/25/17 07:20 Assessment and Plan (1) Alzheimer disease Status: Acute (2) Parkinsons disease Status: Acute (3) Dehydration Status: Acute (4) Pneumonia Status: Acute
[2017-12-26 10:01] VITALS: BP 121/76; RESP 20; TEMP 97.4; O2SAT 96
--- NOTE | 2017-12-26 13:00 | CP.PCM.PN ---
Subjective - Date & Time of Evaluation Date of Evaluation: 12/26/17 Time of Evaluation: 11:40 - Subjective Subjective: Patient seen and examined at bedside today Patient resting comfortably in bed in no distress. Patient unable to answer questions due to mental status. Assessment/Plan: 1. Pneumonia, improving - Continue Piperacillin-Tazobactam - Repeat CXR Objective - Vital Signs/Intake and Output Vital Signs (last 24 hours): Temp Pulse Resp BP Pulse Ox 97.4 F L 89 20 121/76 96 12/26/17 07:00 12/26/17 07:00 12/26/17 07:00 12/26/17 07:00 12/26/17 07:00 Intake and Output: 12/26/17 12/26/17 06:59 18:59 Intake Total 850 920 Output Total 300 Balance 850 620 - Medications Medications: Current Medications Calcitriol (Rocaltrol) 0.25 mcg PO DAILY [facility] Last Admin: 12/26/17 10:56 Dose: 0.25 mcg Carbidopa/Levodopa (Sinemet) 1 tab PO Q8 [facility] Last Admin: 12/26/17 05:03 Dose: 1 tab Cinacalcet (Sensipar) 30 mg PO DAILY [facility] Last Admin: 12/26/17 10:57 Dose: 30 mg Piperacillin Sod/Tazobactam Sod (Zosyn 2.25 Gm Iv Premix) 2.25 gm in 50 mls @ 100 mls/hr IVPB Q6H [facility] PRN Reason: Protocol Last Admin: 12/26/17 10:57 Dose: 100 mls/hr Dextrose/Sodium Chloride (Dextrose 5%/0.45% Ns 1000 Ml) 1,000 mls @ 100 mls/hr IV .Q10H [facility] Last Admin: 12/26/17 11:01 Dose: 100 mls/hr Oxybutynin Chloride (Ditropan Tab) 5 mg PO DAILY [facility] Last Admin: 12/26/17 10:57 Dose: 5 mg Tamsulosin HCl (Flomax) 0.4 mg PO DAILY [facility] Last Admin: 12/26/17 10:56 Dose: 0.4 mg - Labs Labs: 12/25/17 07:20 12/25/17 07:20
--- NOTE | 2017-12-26 14:54 | RAD ---
HISTORY: pnemonia COMPARISON: Portable chest 12/22/2017. FINDINGS: LUNGS: Crowding of the bronchovascular markings is likely caused by elevator hemidiaphragm which is in turn likely a function of distended large and small bowel loops throughout the abdomen. Limited left basilar airspace disease not excluded obscuring the left hemidiaphragm somewhat. PLEURA: No significant pleural effusion identified, no pneumothorax apparent. CARDIOVASCULAR: Normal. OSSEOUS STRUCTURES: No significant abnormalities. VISUALIZED UPPER ABDOMEN: Potential bowel ileus or obstruction based on distended small large-bowel loops appreciated. Ileus is favored based on images submitted. Consider follow-up abdomen radiograph series or CT if not already evaluated. OTHER FINDINGS: Bipolar cardiac pacemaker again identified. IMPRESSION: Crowding of bronchovascular markings is favored over airspace disease right base with limited atelectasis or infiltrate identified in the left base. Incidental extensive small large-bowel dilatation the abdomen suggestive of probable ileus. Clinically correlate. Follow-up abdominal imaging is advised if not already of performed.
--- NOTE | 2017-12-26 15:04 | CP.PCM.PN ---
Subjective - Date & Time of Evaluation Date of Evaluation: 12/26/17 Time of Evaluation: 14:58 - Subjective Subjective: PT SEEN THIS MORNING BY DR. MAHARAJ AND CLEARED FOR D/C FROM PULM STANDPOINT. URINE CULTURE (FINAL RESULT) REC'D AND DISCUSSED WITH DR. HAWK. PT CLEARED FOR D/C BACK TO [facility] TODAY WITH AMPICILLIN PO FOR 10 DAYS. URINE CX TO BE REPEATED AFTER 10 DAY ABX REGIMEN COMPLETED AND DR. HAWK TO F/U WITH THOSE RESULTS. PT TO BE FOLLOWED BY DR. HAWK IN [facility]. SW AWARE OF DC AND WILL ARRANGE TRANSPORTATION FOR THIS EVENING. NO FURTHER ORDERS. -PLACE UNDER THE SERVICE OF DR. HAWK WHILE AT [facility] ---CALL UPON ARRIVAL TO FACILITY FOR ADMITTING ORDERS. -CONTINUE MEDICATIONS PER THE MED REC FORM---CHANGES CAN BE MADE BY DR. HAWK. -CONTINUE AMPICILLIN ORDERED ON THE MED REC FOR 10 DAYS---TO BE STARTED ON (EVENING DOSE) AND THE LAST DOSE SHOULD BE GIVEN DURING THE EVENING OF 01/05/18. -REPEAT URINE CULTURE ON 01/06/18 AFTER THE AMPICILLIN IS COMPLETED---SEND RESULTS TO DR. HAWK. -PHYSICAL THERAPY TOLERATED. -FOR FURTHER ORDERS, CONTACT DR. HAWK'S OFFICE. Objective - Vital Signs/Intake and Output Vital Signs (last 24 hours): Temp Pulse Resp BP Pulse Ox 97.4 F L 89 20 121/76 96 12/26/17 07:00 12/26/17 07:00 12/26/17 07:00 12/26/17 07:00 12/26/17 07:00 Intake and Output: 12/26/17 12/26/17 06:59 18:59 Intake Total 850 1970 Output Total 700 Balance 850 1270 - Medications Medications: Current Medications Calcitriol (Rocaltrol) 0.25 mcg PO DAILY [facility] Last Admin: 12/26/17 10:56 Dose: 0.25 mcg Carbidopa/Levodopa (Sinemet) 1 tab PO Q8 [facility] Last Admin: 12/26/17 13:40 Dose: 1 tab Cinacalcet (Sensipar) 30 mg PO DAILY [facility] Last Admin: 12/26/17 10:57 Dose: 30 mg Piperacillin Sod/Tazobactam Sod (Zosyn 2.25 Gm Iv Premix) 2.25 gm in 50 mls @ 100 mls/hr IVPB Q6H [facility] PRN Reason: Protocol Last Admin: 12/26/17 10:57 Dose: 100 mls/hr Dextrose/Sodium Chloride (Dextrose 5%/0.45% Ns 1000 Ml) 1,000 mls @ 100 mls/hr IV .Q10H [facility] Last Admin: 12/26/17 13:41 Dose: Not Given Oxybutynin Chloride (Ditropan Tab) 5 mg PO DAILY [facility] Last Admin: 12/26/17 10:57 Dose: 5 mg Tamsulosin HCl (Flomax) 0.4 mg PO DAILY [facility] Last Admin: 12/26/17 10:56 Dose: 0.4 mg - Labs Labs: 12/25/17 07:20 12/25/17 07:20
[2017-12-26 17:00] VITALS: PULSE 78
--- NOTE | 2017-12-27 03:47 | CP.PCM.DIS ---
Provider - Provider Date of Admission: 12/22/17 21:28 Attending physician: Adrian Parekh MD Time Spent in preparation of Discharge (in minutes): 45 Diagnosis - Discharge Diagnosis (1) Alzheimer disease Status: Acute (2) Parkinsons disease Status: Acute (3) Dehydration Status: Acute (4) Pneumonia Status: Acute Hospital Course - Lab Results Lab Results: Micro Results 12/23/17 19:22 Urine Urine Culture - Final Enterococcus Faecalis 12/22/17 08:19 Blood Blood Culture - Preliminary NO GROWTH AFTER 3 DAYS 12/22/17 08:19 Blood Blood Culture - Preliminary NO GROWTH AFTER 3 DAYS Most Recent Lab Values WBC 5.8 K/uL (4.8-10.8) 12/25/17 07:20 RBC 3.69 Mil/uL (4.40-5.90) L 12/25/17 07:20 Hgb 11.8 g/dL (12.0-18.0) L 12/25/17 07:20 Hct 34.4 % (35.0-51.0) L 12/25/17 07:20 MCV 93.2 fL (80.0-94.0) 12/25/17 07:20 MCH 32.1 pg (27.0-31.0) H 12/25/17 07:20 MCHC 34.4 g/dL (33.0-37.0) 12/25/17 07:20 RDW 14.0 % (11.5-14.5) 12/25/17 07:20 Plt Count 169 K/uL (130-400) 12/25/17 07:20 MPV 10.0 fL (7.2-11.7) 12/25/17 07:20 Neut % (Auto) 75.8 % (50.0-75.0) H 12/25/17 07:20 Lymph % (Auto) 14.1 % (20.0-40.0) L 12/25/17 07:20 [place] % (Auto) 5.5 % (0.0-10.0) 12/25/17 07:20 Eos % (Auto) 4.2 % (0.0-4.0) H 12/25/17 07:20 Baso % (Auto) 0.4 % (0.0-2.0) 12/25/17 07:20 Neut # (Auto) 4.4 K/uL (1.8-7.0) 12/25/17 07:20 Lymph # (Auto) 0.8 K/uL (1.0-4.3) L 12/25/17 07:20 [place] # (Auto) 0.3 K/uL (0.0-0.8) 12/25/17 07:20 Eos # (Auto) 0.2 K/uL (0.0-0.7) 12/25/17 07:20 Baso # (Auto) 0.0 K/uL (0.0-0.2) 12/25/17 07:20 Neutrophils % (Manual) 87 % (50-75) H 12/23/17 14:04 Lymphocytes % (Manual) 7 % (20-40) L 12/23/17 14:04 Monocytes % (Manual) 5 % (0-10) 12/23/17 14:04 Eosinophils % (Manual) 1 % (0-4) 12/23/17 14:04 Platelet Estimate Normal (NORMAL) 12/23/17 14:04 RBC Morphology Normal 12/23/17 14:04 Sodium 144 mmol/L (132-148) 12/25/17 07:20 Potassium 3.6 mmol/L (3.6-5.2) 12/25/17 07:20 Chloride 109 mmol/L (98-107) H 12/25/17 07:20 Carbon Dioxide 23 mmol/L (22-30) 12/25/17 07:20 Anion Gap 15 (10-20) 12/25/17 07:20 BUN 44 mg/dL (9-20) H 12/25/17 07:20 Creatinine 2.2 mg/dL (0.8-1.5) H 12/25/17 07:20 Est GFR ( Amer) 35 12/25/17 07:20 Est GFR (Non-Af Amer) 29 12/25/17 07:20 POC Glucose (mg/dL) 98 mg/dL (65-110) 12/26/17 21:48 Random Glucose 99 mg/dL (75-110) 12/25/17 07:20 Lactic Acid 1.6 mmol/L (0.7-2.1) 12/23/17 14:04 Calcium 7.7 mg/dl (8.6-10.4) L 12/25/17 07:20 Total Bilirubin 0.9 mg/dL (0.2-1.3) 12/22/17 19:43 AST 23 U/L (17-59) 12/22/17 19:43 ALT 15 U/L (21-72) L 12/22/17 19:43 Alkaline Phosphatase 125 U/L (38-126) 12/22/17 19:43 Total Protein 6.7 g/dL (6.3-8.3) 12/22/17 19:43 Albumin 3.6 g/dL (3.5-5.0) 12/22/17 19:43 Globulin 3.1 gm/dL (2.2-3.9) 12/22/17 19:43 Albumin/Globulin Ratio 1.1 (1.0-2.1) 12/22/17 19:43 Urine Color Yellow (YELLOW) 12/23/17 19:22 Urine Clarity Clear (Clear) 12/23/17 19:22 Urine pH 7.0 (5.0-8.0) 12/23/17 19:22 Ur Specific [place] 1.014 (1.003-1.030) 12/23/17 19:22 Urine Protein Negative mg/dL (NEGATIVE) 12/23/17 19:22 Urine Glucose (UA) Normal mg/dL (Normal) 12/23/17 19:22 Urine Ketones Negative mg/dL (NEGATIVE) 12/23/17 19:22 Urine Blood Negative (NEGATIVE) 12/23/17 19:22 Urine Nitrate Negative (NEGATIVE) 12/23/17 19:22 Urine Bilirubin Negative (NEGATIVE) 12/23/17 19:22 Urine Urobilinogen Normal mg/dL (0.2-1.0) 12/23/17 19:22 Ur Leukocyte Esterase Trace [place]/uL (Negative) 12/23/17 19:22 Urine WBC (Auto) 8 /hpf (0-5) H 12/23/17 19:22 Urine RBC (Auto) < 1 /hpf (0-3) 12/23/17 19:22 Ur Squamous Epith Cells < 1 /hpf (0-5) 12/23/17 19:22 Urine Bacteria Rare (<OCC) 12/23/17 19:22 - Hospital Course Hospital Course: PT SEEN THIS MORNING BY DR. JOHNSON AND CLEARED FOR D/C FROM PULM STANDPOINT. URINE CULTURE (FINAL RESULT) REC'D AND PT SEEN AND EXAMINED, PT CLEARED FOR D/ C BACK TO [facility] TODAY WITH AMPICILLIN PO FOR 10 DAYS. URINE CX TO BE REPEATED AFTER 10 DAY ABX REGIMEN COMPLETED AND I WILL F/U WITH THOSE RESULTS. PT TO BE FOLLOWED BY ME IN [facility]. SW AWARE OF DC AND WILL ARRANGE TRANSPORTATION FOR THIS EVENING. NO FURTHER ORDERS. -PLACE UNDER THE SERVICE OF DR. PAREKH WHILE AT [facility] ---CALL UPON ARRIVAL TO FACILITY FOR ADMITTING ORDERS. -CONTINUE MEDICATIONS PER THE MED REC FORM---CHANGES CAN BE MADE BY DR. PAREKH. -CONTINUE AMPICILLIN ORDERED ON THE MED REC FOR 10 DAYS---TO BE STARTED ON (EVENING DOSE) AND THE LAST DOSE SHOULD BE GIVEN DURING THE EVENING OF 01/05/18. -REPEAT URINE CULTURE ON 01/06/18 AFTER THE AMPICILLIN IS COMPLETED---SEND RESULTS TO DR. PAREKH. -PHYSICAL THERAPY TOLERATED. -FOR FURTHER ORDERS, CONTACT DR. PAREKH'S OFFICE. - Date & Time of H&P Date of H&P: 12/26/17 Discharge Exam - Head Exam Head Exam: ATRAUMATIC, NORMAL INSPECTION, NORMOCEPHALIC - Eye Exam Eye Exam: EOMI, Normal appearance, PERRL Pupil Exam: NORMAL ACCOMODATION, PERRL - ENT Exam ENT Exam: Mucous Membranes Moist - Cardiovascular Exam Cardiovascular Exam: REGULAR RHYTHM, +S1, +S2 - GI/Abdominal Exam GI & Abdominal Exam: Normal Bowel Sounds - Rectal Exam Rectal Exam: Deferred Discharge Plan - Discharge Medications Prescriptions: AMPicillin [Ampicillin] 500 mg PO Q6 10 Days cap Saccharomyces Boulardi [Florastor] 250 mg PO BID 10 Days cap - Follow Up Plan Condition: FAIR Disposition: REHAB FACILITY/REHAB UNIT Instructions: Dehydration, Adult (DC), Pneumonia, Adult (DC) Additional Instructions: -PLACE UNDER THE SERVICE OF DR. PAREKH WHILE AT [facility] ---CALL UPON ARRIVAL TO FACILITY FOR ADMITTING ORDERS. -CONTINUE MEDICATIONS PER THE MED REC FORM---CHANGES CAN BE MADE BY DR. PAREKH. -CONTINUE AMPICILLIN ORDERED ON THE MED REC FOR 10 DAYS---TO BE STARTED ON (EVENING DOSE) AND THE LAST DOSE SHOULD BE GIVEN DURING THE EVENING OF 01/05/18. -REPEAT URINE CULTURE ON 01/06/18 AFTER THE AMPICILLIN IS COMPLETED---SEND RESULTS TO DR. PAREKH. -PHYSICAL THERAPY TOLERATED. -FOR FURTHER ORDERS, CONTACT DR. PAREKH'S OFFICE. Referrals: Mayo Johnson MD [Staff Provider] - Adrian Parekh MD [Staff Provider] -
== END 2017-12-26 22:24 | DRG 194 ==
LOC: C.ER 18:17 → C.9E 21:28 → C.3T 12-23 00:40
PROVIDERS: ADMIT Internal Medicine; ATTEND Internal Medicine
DX: J18.9 Pneumonia, unspecified organism (principal); E87.0 Hyperosmolality and hypernatremia; E78.5 Hyperlipidemia, unspecified; E86.0 Dehydration; F02.80 Dementia in other diseases classified elsewhere, unspecified severity, without behavioral disturbance, psychotic disturbance, mood disturbance, and anxiety; G20 Parkinson's disease; G30.9 Alzheimer's disease, unspecified; I12.9 Hypertensive chronic kidney disease with stage 1 through stage 4 chronic kidney disease, or unspecified chronic kidney disease; N18.9 Chronic kidney disease, unspecified; N40.0 Benign prostatic hyperplasia without lower urinary tract symptoms; Z74.01 Bed confinement status; Z95.0 Presence of cardiac pacemaker

== ENCOUNTER 2018-02-16 21:20 | Inpatient (IN) | payer MEDICARE, MEDICAID ==
--- NOTE | 2018-02-16 21:27 | C.PDOC ---
History Of Present Illness 87 y/o male presents to ED from custodial for abnormal blood work, possible dehydration and hypernatremia. Unable to obtain history due to patient's medical condition of dementia. Time Seen by Provider: 02/16/18 21:23 History Per: EMS History/Exam Limitations: clinical condition Onset/Duration Of Symptoms: Days Current Symptoms Are (Timing): Still Present Severity: Severe Pain Scale Rating Of: 8 Reports Recently: Seen In ED, Treated By A Physician, Hospitalized Recent travel outside of the [place]: No Additional History Per: Custodial Past Medical History Reviewed: Historical Data, Nursing Documentation, Vital Signs Vital Signs: Last Vital Signs Temp 97.2 F L 02/16/18 22:10 Pulse 78 02/16/18 22:10 Resp 24 02/16/18 22:10 BP 96/46 L 02/16/18 22:10 Pulse Ox 99 02/16/18 22:10 - Medical History PMH: Alzheimer's Disease, HTN, Hyperlipidemia, Parkinson's Disease, Chronic Kidney Disease Surgical History: Pacemaker - [facility] Procedures INDIVID PSYCHOTHERAP NEC (02/27/14) Family History: States: No Known Family Hx - Social History Hx Alcohol Use: No Hx Substance Use: No - Immunization History Hx Tetanus Toxoid Vaccination: No Hx Influenza Vaccination: No Review Of Systems Review Of Systems: ROS cannot be obtained secondary to pt's inabilty to answer questions. Physical Exam - Physical Exam Appears: In Acute Distress Skin: Warm, Dry, Other (poor turgor) Head: Normacephalic Eye(s): bilateral: Normal Inspection Oral Mucosa: Dry Teeth: Edentulous Neck: Trachea Midline, Supple Chest: Symmetrical, Other (Pacemaker in left chest wall) Cardiovascular: Rhythm Regular Respiratory: No Rales, Rhonchi (Scattered), No Wheezing Gastrointestinal/Abdominal: Bowel Sounds (Active), Soft, No Tenderness, No Distention Back: No CVA Tenderness Extremity: Normal ROM, No Pedal Edema Extremity: Bilateral: Atraumatic, Normal Color And Temperature, Normal ROM Pulses: Left Dorsalis Pedis: Normal, Right Dorsalis Pedis: Normal Neurological/Psych: Other Disoriented To: Place, Time, Situation Gait: Unable To Assess ED Course And Treatment - Laboratory Results Result Diagrams: 02/16/18 22:00 02/16/18 22:00 ECG: Interpreted By Me, Viewed By Me ECG Rhythm: Sinus Rhythm (77), Nonspecific Changes (atrial paced rhythm) Pulse Ox Interpretation: Normal - Radiology CXR: Interpreted by Me, Viewed By Me CXR Interpretation: Yes: COPD, Other (pacer left chest). No: Infiltrates, Fracture, Cardiomegaly Progress Note: Administered IV fluids. Ordered BG, EKG, bloodwork, CXR, and urinalysis. Critical Care Time - Critical Care Note Total Time (in mins): 30 Documented critical care: time excludes all time spent performing seperately billable procedures. Disposition Discussed With DrLinda: Adrian Parekh Comment: accepted the pt on h is service and took over the care at 11:16PM Doctor Will See Patient In The: Hospital Counseled Patient/Family Regarding: Studies Performed, Diagnosis - Disposition Disposition: HOSPITALIZED Disposition Time: 21:26 Condition: CRITICAL - POA Present On Arrival: Poor Glycemic Control - Clinical Impression Clinical Impression: Electrolyte imbalance, Hyperkalemia, Hypernatremia, Severe dehydration - Scribe Statement The provider has reviewed the documentation as recorded by the Scribdara Stanford All medical record entries made by the Scribe were at my direction and personally dictated by me. I have reviewed the chart and agree that the record accurately reflects my personal performance of the history, physical exam, medical decision making, and the department course for this patient. I have also personally directed, reviewed, and agree with the discharge instructions and disposition. Decision To Admit - Pt Status Changed To: Hospital Disposition Of: Inpatient - Admit Certification Admit to Inpatient:: After my assessment, the patient will require hospitalization for at least two midnights. This is because of the severity of symptoms shown, intensity of services needed, and/or the medical risk in this patient being treated as an outpatient. - InPatient: Physician Admission Certification: I certify that this patient requires 2 or more midnights of care for the following reason:: After my assessment, the patient will require hospitalization for at least two midnights. This is because of the severity of symptoms shown, intensity of services needed, and/or the medical risk in this patient being treated as an outpatient. - . Bed Request Type: Telemetry Patient Diagnosis: Electrolyte imbalance, Hyperkalemia, Hypernatremia, Severe dehydration
[2018-02-16 21:29] VITALS: BMI 22.8
[2018-02-16] MEDS ORDERED: Sodium Chloride 0.9% 1,000 ML IV ONE (21:42)
[2018-02-16 21:59] LABS: VENOUS BLOOD GAS BASE EXCESS -8.6 mmol/L (0.0-2.0); VENOUS BLOOD GAS PCO2 33 mmHg (40-60); VENOUS BLOOD GAS PO2 13 mm/Hg (30-55); VENOUS BLOOD PH 7.31 (7.32-7.43)
[2018-02-16 22:09] LABS: BASO % 0.1 % (0.0-2.0); LYMPH # 1.1 K/uL (1.0-4.3); LYMPH % 6.4 % (20.0-40.0); MEAN CELL VOLUME 95.1 fL (80.0-94.0); MEAN CORPUSCULAR HEMOGLOBIN 31.3 pg (27.0-31.0); MEAN CORPUSCULAR HGB CONC 32.9 g/dL (33.0-37.0); MEAN PLATELET VOLUME 12.6 fL (7.2-11.7); MONO # 0.7 K/uL (0.0-0.8); NEUT # 15.9 K/uL (1.8-7.0); NEUT % 89.5 % (50.0-75.0); NRBC % 0.1 % (0.0-2.0); PLATELET COUNT 206 K/uL (130-400); RBC 4.78 Mil/uL (4.40-5.90); RED CELL DISTRIBUTION WIDTH 14.8 % (11.5-14.5)
[2018-02-16 22:10] LABS: HEMOGLOBIN 14.9 g/dL (12.0-18.0); WHITE BLOOD COUNT 17.8 K/uL (4.8-10.8)
[2018-02-16 22:21] LABS: INR 1.3; PROTHROMBIN TIME 14.1 SECONDS (9.7-12.2)
[2018-02-16 22:25] LABS: ALB/GLOB RATIO 1.2 (1.0-2.1); ALBUMIN 3.8 g/dL (3.5-5.0); CALCIUM 10.5 mg/dl (8.6-10.4)
[2018-02-16 22:33] LABS: ANISOCYTOSIS SLIGHT; BANDS 9 % (0-2); LYMPHOCYTE 9 % (20-40); MONOCYTE 5 % (0-10); NEUTROPHIL 77 % (50-75); PLATELET ESTIMATE NORMAL (NORMAL); TOTAL CELLS COUNTED 100
[2018-02-16] MEDS ORDERED: Piperacillin/Tazobact 3.375 gm 100 ML IVPB STA (23:05)
[2018-02-16] MEDS ORDERED: Piperacillin/Tazobact 3.375 gm 100 ML IVPB ONE (23:21)
[2018-02-16 23:31] LABS: SQUAMOUS EPITHIAL < 1 /hpf (0-5); URINE AMORPHOUS SEDIMENT RARE /ul (<OCC); URINE BACTERIA RARE (<OCC); URINE BILIRUBIN NEGATIVE (NEGATIVE); URINE BLOOD NEGATIVE (NEGATIVE); URINE CLARITY Hazy (Clear); URINE COLOR Amber (YELLOW); URINE GLUCOSE (UA) NORMAL (Normal); URINE LEUKOCYTE ESTERASE TRACE Leu/uL (Negative); URINE PROTEIN NEGATIVE (NEGATIVE); URINE UROBILINOGEN NORMAL mg/dL (0.2-1.0)
[2018-02-17] MEDS ORDERED: Dextrose 5%-0.225% NS 1,000 ML IV SCH (00:15)
[2018-02-17] MEDS: Piperacillin/Tazobact 2.25 GM in Sodium Chloride 100 ML IVPB SCH ×4 (01:06→23:38)
[2018-02-17] MEDS ORDERED: Dextrose 5%/0.2% NS 250 ML IV SCH (02:30)
[2018-02-17] MEDS: Sod Polystyrene Sulf 15 gm/60 ml Susp PO ONE ×2 (02:42→03:32)
[2018-02-17] MEDS ORDERED: Sodium Chloride 0.9% 500 ML IV ONE ×2 (04:18→05:48)
[2018-02-17] MEDS ORDERED: Sodium Chloride 0.9% 1,000 ML ONE (04:32)
[2018-02-17 05:14] LABS: ALB/GLOB RATIO 1.1 (1.0-2.1); ALBUMIN 2.9 g/dL (3.5-5.0); CALCIUM 9.1 mg/dl (8.6-10.4)
[2018-02-17] MEDS: Carbidopa/Levodopa 25/250 PO SCH ×3 (05:51→22:12)
[2018-02-17] MEDS ORDERED: Sodium Chloride 0.9% 1,000 ML IV ONE (05:57)
[2018-02-17] MEDS ORDERED: Albumin Human 25% (12.5 gm/50 ml) IV ONE ×5 (05:58→09:30)
--- NOTE | 2018-02-17 06:15 | CP.PCM.CON ---
History of Present Illness - History of Present Illness History of Present Illness: 87 M with h/o htn, pacemaker, parkinson, renal insufficiency, h/o poor intake, recent dehydration and hospitalization sent in from [place] again for poor intake, lethargy, labs showed severe hypernatremia, hyperkalemia, metabolic acidosis, leukocytosis. Patient was clinically very dehydrated, had episodes of hypotension. By the time of the eval patient was getting second litre of fluid. ICU consult was called for multifactorial worsening. PMH as above, recent hospitalization for similar episode Allergies NKDA Social history, [place] resident Meds reviewed Family history not contributory. Review of Systems - Review of Systems All systems: reviewed and no additional remarkable complaints except (HPI) Past Patient History - Past Medical History & Family History Past Medical History?: Yes - Past Social History Smoking Status: Never Smoked Alcohol: None Drugs: Denies Home Situation {Lives}: Custodial Domestic Violence: Negative - CARDIAC Hx Hypertension: Yes Hx Pacemaker: Yes - PULMONARY Hx Respiratory Disorders: No - NEUROLOGICAL Hx Alzheimer's Disease: Yes Hx Parkinson's Disease: Yes - HEENT Hx HEENT Problems: No - RENAL Hx Chronic Kidney Disease: Yes - ENDOCRINE/METABOLIC Hx Endocrine Disorders: No - HEMATOLOGICAL/ONCOLOGICAL Hx Blood Disorders: No - INTEGUMENTARY Hx Dermatological Problems: No - MUSCULOSKELETAL/RHEUMATOLOGICAL Hx Falls: No - GASTROINTESTINAL Hx Gastrointestinal Disorders: No - GENITOURINARY/GYNECOLOGICAL Hx Genitourinary Disorders: Yes Hx Incontinence: Yes Hx Prostate Problems: Yes (BPH) - PSYCHIATRIC Hx Substance Use: No - SURGICAL HISTORY Hx Surgeries: Yes Other/Comment: Pacemaker insertion - ANESTHESIA Hx Anesthesia: Yes Hx Anesthesia Reactions: No Hx Malignant Hyperthermia: No Meds Allergies/Adverse Reactions: Allergies Allergy/AdvReac Type Severity Reaction Status Date / Time No Known Allergies Allergy Verified 02/17/18 04:28 - Medications Medications: Current Medications Albumin Human (Albumin Human 25% (12.5 Gm/50 Ml)) 25 gm IV ONCE ONE Stop: 02/17/18 05:59 Calcitriol (Rocaltrol) 0.25 mcg PO DAILY [facility] Carbidopa/Levodopa (Sinemet) 1 tab PO Q8 [facility] Last Admin: 02/17/18 05:51 Dose: Not Given Cinacalcet (Sensipar) 30 mg PO DAILY [facility] Heparin Sodium (Porcine) (Heparin) 5,000 units SC Q8 [facility] Last Admin: 02/17/18 05:57 Dose: 5,000 units Home Med (Pimavanserin Tartrate [Nuplazid]) 2 tab PO DAILY [facility] Dextrose/Sodium Chloride (Dextrose 5%-0.225% Ns 1000 Ml) 1,000 mls @ 100 mls/ hr IV .Q10H [facility] Last Admin: 02/17/18 01:14 Dose: 100 mls/hr Piperacillin Sod/Tazobactam (Sod 2.25 gm/ Sodium Chloride) 100 mls @ 200 mls/ hr IVPB Q8H [facility] PRN Reason: Protocol Last Admin: 02/17/18 01:06 Dose: Not Given Sodium Chloride (Sodium Chloride 0.9%) 500 mls @ 1,000 mls/hr IV .Q30M ONE Stop: 02/17/18 06:17 Last Admin: 02/17/18 05:49 Dose: 1,000 mls/hr Sodium Chloride (Sodium Chloride 0.9%) 1,000 mls @ 250 mls/hr IV .Q4H ONE Stop: 02/17/18 09:56 Metoprolol Tartrate (Lopressor) 25 mg PO DAILY [facility] Pantoprazole Sodium (Protonix Inj) 40 mg IVP DAILY [facility] Physical Exam - Additional Findings Additional findings: * HEENT ARYA * Neck supple, no JVD * CVS regular, all paced rhytm * Chest clear b/l, intermittent coughing and clearing of throat * PA soft, emaciated * Ext no edema * Skin very poor turgor, skin tenting, suggest chronic slow dehydration, likely form poor intake, stage 1 in sacral area * Stool was soft brown * Results - Vital Signs Recent Vital Signs: Last Vital Signs Temp 97.5 F L 02/17/18 01:25 Pulse 75 02/17/18 05:37 Resp 18 02/17/18 05:37 BP 99/50 L 02/17/18 05:37 Pulse Ox 100 02/17/18 05:37 - Labs Result Diagrams: 02/16/18 22:00 02/17/18 03:40 Labs: Laboratory Results - last 24 hr 02/16/18 02/16/18 02/16/18 21:29 21:52 22:00 WBC 17.8 H D RBC 4.78 Hgb 14.9 D Hct 45.4 MCV 95.1 H MCH 31.3 H MCHC 32.9 L RDW 14.8 H Plt Count 206 MPV 12.6 H Neut % (Auto) 89.5 H Lymph % (Auto) 6.4 L [place] % (Auto) 4.0 Eos % (Auto) 0.0 Baso % (Auto) 0.1 Neut # (Auto) 15.9 H Lymph # (Auto) 1.1 [place] # (Auto) 0.7 Eos # (Auto) 0.0 Baso # (Auto) 0.0 Neutrophils % (Manual) 77 H Band Neutrophils % 9 H Lymphocytes % (Manual) 9 L Monocytes % (Manual) 5 Platelet Estimate Normal Anisocytosis (manual) Slight PT INR APTT pO2 13 L VBG pH 7.31 L VBG pCO2 33 L VBG HCO3 15.9 VBG Total CO2 17.6 L VBG O2 Sat (Calc) 24.9 L VBG Base Excess -8.6 L VBG Potassium 4.8 Sodium 165.0 H* Chloride 133.0 H Glucose 110 Lactate 2.2 H Crit Value Called To mckenzie Nettles md Crit Value Called By Alba Crit Value Read Back Y Blood Gas Notified Time 2157 Potassium Carbon Dioxide Anion Gap BUN Creatinine Est GFR ( Amer) Est GFR (Non-Af Amer) Random Glucose Calcium Magnesium Total Bilirubin AST ALT Alkaline Phosphatase Total Protein Albumin Globulin Albumin/Globulin Ratio Lipase Venous Blood Potassium 4.8 Urine Color Radha Urine Clarity Hazy Urine pH 5.0 Ur Specific [place] 1.018 Urine Protein Negative Urine Glucose (UA) Normal Urine Ketones Negative Urine Blood Negative Urine Nitrate Negative Urine Bilirubin Negative Urine Urobilinogen Normal Ur Leukocyte Esterase Trace Urine WBC (Auto) 6 H Urine RBC (Auto) 4 H Ur Squamous Epith Cells < 1 Amorphous Sediment Rare H Urine Bacteria Rare 02/16/18 02/16/18 02/17/18 22:00 22:00 03:40 WBC RBC Hgb Hct MCV MCH MCHC RDW Plt Count MPV Neut % (Auto) Lymph % (Auto) [place] % (Auto) Eos % (Auto) Baso % (Auto) Neut # (Auto) Lymph # (Auto) [place] # (Auto) Eos # (Auto) Baso # (Auto) Neutrophils % (Manual) Band Neutrophils % Lymphocytes % (Manual) Monocytes % (Manual) Platelet Estimate Anisocytosis (manual) PT 14.1 H INR 1.3 APTT 37 H pO2 VBG pH VBG pCO2 VBG HCO3 VBG Total CO2 VBG O2 Sat (Calc) VBG Base Excess VBG Potassium Sodium 169 H* 165 H* Chloride 127 H 129 H Glucose Lactate Crit Value Called To Crit Value Called By Crit Value Read Back Blood Gas Notified Time Potassium 5.9 H 5.6 H Carbon Dioxide 17 L 14 L Anion Gap 31 H 28 H BUN 271 H* D 245 H* Creatinine 7.7 H* D 6.9 H Est GFR ( Amer) 8 9 Est GFR (Non-Af Amer) 7 8 Random Glucose 113 H 217 H Calcium 10.5 H 9.1 Magnesium 3.4 H Total Bilirubin 0.7 0.8 AST 39 33 ALT 19 L D 18 L Alkaline Phosphatase 127 H 93 Total Protein 6.9 5.4 L Albumin 3.8 2.9 L D Globulin 3.1 2.6 Albumin/Globulin Ratio 1.2 1.1 Lipase 54 Venous Blood Potassium Urine Color Urine Clarity Urine pH Ur Specific [place] Urine Protein Urine Glucose (UA) Urine Ketones Urine Blood Urine Nitrate Urine Bilirubin Urine Urobilinogen Ur Leukocyte Esterase Urine WBC (Auto) Urine RBC (Auto) Ur Squamous Epith Cells Amorphous Sediment Urine Bacteria Assessment & Plan - Assessment and Plan (Free Text) Assessment: * Severe slow dehydration, from poor intake, will need initial hydration, to improve intravascular volume, then slow hypotonic fluid for tissue rehydration, albumin will be given with bolus fluids to initialy improve intravascular volume * ANNA secondary to above * Parkinsons * Dementia * S/p pacemaker Plan: * Accepted to ICU for initial fluid and electrolyte management * Albumin initially, with iostonic fluid, then hypotonic fluid, after restoring intravascular volume * Echo * Palliative care * NG feeding, swallow eval, may need peg * Emperic abx started by primary team * Continue home meds except bp meds * Gi/DVT prophylaxis * See orders for detail.
[2018-02-17 06:34] LABS: BASO % 0.1 % (0.0-2.0); LYMPH # 0.7 K/uL (1.0-4.3); LYMPH % 6.1 % (20.0-40.0); MEAN CELL VOLUME 95.1 fL (80.0-94.0); MEAN CORPUSCULAR HEMOGLOBIN 31.8 pg (27.0-31.0); MEAN CORPUSCULAR HGB CONC 33.5 g/dL (33.0-37.0); MEAN PLATELET VOLUME 11.5 fL (7.2-11.7); MONO # 0.5 K/uL (0.0-0.8); MONO % 4.4 % (0.0-10.0); NEUT # 10.3 K/uL (1.8-7.0); NEUT % 89.4 % (50.0-75.0); PLATELET COUNT 155 K/uL (130-400); RBC 3.44 Mil/uL (4.40-5.90); RED CELL DISTRIBUTION WIDTH 14.7 % (11.5-14.5); WHITE BLOOD COUNT 11.5 K/uL (4.8-10.8)
[2018-02-17 06:44] LABS: ALBUMIN 2.4 g/dL (3.5-5.0); CALCIUM 8.1 mg/dl (8.6-10.4)
[2018-02-17 08:15] LABS: BANDS 12 % (0-2); LYMPHOCYTE 7 % (20-40); MONOCYTE 4 % (0-10); NEUTROPHIL 77 % (50-75); PLATELET ESTIMATE NORMAL (NORMAL); TOTAL CELLS COUNTED 100
[2018-02-17 08:16] LABS: LARGE PLATELETS PRESENT
[2018-02-17] MEDS ORDERED: PIMAVANSERIN TARTRATE PO SCH (10:00)
--- NOTE | 2018-02-17 12:14 | RAD ---
Date of service: 02/16/2018 PROCEDURE: CHEST RADIOGRAPH, 1 VIEW HISTORY: SOB COMPARISON: None available. FINDINGS: LUNGS: Stable chronic prominence of the bibasilar interstitial markings. No focal consolidation. PLEURA: No pneumothorax or pleural fluid seen. CARDIOVASCULAR: Left subclavian access pacemaker redemonstrated. Atherosclerotic aortic calcifications. Cardiomediastinal silhouette within normal limits. OSSEOUS STRUCTURES: Unchanged. VISUALIZED UPPER ABDOMEN: Normal. OTHER FINDINGS: None. IMPRESSION: Stable chronic prominence of the bibasilar interstitial markings. No focal consolidation or pleural effusion.
[2018-02-17 13:48] LABS: INR 1.5; PROTHROMBIN TIME 16.9 SECONDS (9.7-12.2)
--- NOTE | 2018-02-17 15:07 | CP.PCM.PCO ---
Physician Communication Note - Physician Communication Note Physician Communication Note: Family meeting pending for tomorrow am
[2018-02-17 15:31] LABS: ALB/GLOB RATIO 1.2 (1.0-2.1); ALBUMIN 2.6 g/dL (3.5-5.0)
--- NOTE | 2018-02-17 17:17 | CP.PCM.CON ---
History of Present Illness - History of Present Illness History of Present Illness: patient seen in am, discussed case w/ icu team. history mostly from chart 87 M with h/o htn, pacemaker, parkinson, renal insufficiency, h/o poor intake, recent dehydration and hospitalization sent in from [place] again for poor intake, lethargy, labs showed severe hypernatremia, hyperkalemia, metabolic acidosis, leukocytosis. Patient was clinically very dehydrated, had episodes of hypotension. Pt had received 4L ivf by now, minimal uop. PMH as above, recent hospitalization for similar episode Allergies NKDA Social history, [place] resident Meds reviewed Family history not contributory. Review of Systems - Review of Systems Systems not reviewed;Unavailable: Acuity of Condition, Unstable Vital Signs Past Patient History - Past Medical History & Family History Past Medical History?: Yes - Past Social History Smoking Status: unable to - CARDIAC Hx Hypertension: Yes - PULMONARY Hx Respiratory Disorders: No - NEUROLOGICAL Hx Alzheimer's Disease: Yes Hx Parkinson's Disease: Yes - HEENT Hx HEENT Problems: No - RENAL Hx Chronic Kidney Disease: Yes - ENDOCRINE/METABOLIC Hx Endocrine Disorders: No - HEMATOLOGICAL/ONCOLOGICAL Hx Blood Disorders: No - INTEGUMENTARY Hx Dermatological Problems: No - MUSCULOSKELETAL/RHEUMATOLOGICAL Hx Falls: No - GASTROINTESTINAL Hx Gastrointestinal Disorders: No - GENITOURINARY/GYNECOLOGICAL Hx Genitourinary Disorders: Yes Hx Incontinence: Yes Hx Prostate Problems: Yes (BPH) - PSYCHIATRIC Hx Substance Use: No - SURGICAL HISTORY Hx Surgeries: Yes Other/Comment: Pacemaker insertion - ANESTHESIA Hx Anesthesia: Yes Hx Anesthesia Reactions: No Hx Malignant Hyperthermia: No Meds Allergies/Adverse Reactions: Allergies Allergy/AdvReac Type Severity Reaction Status Date / Time No Known Allergies Allergy Verified 02/17/18 04:28 - Medications Medications: Current Medications Calcitriol (Rocaltrol) 0.25 mcg PO DAILY [facility] Last Admin: 02/17/18 14:00 Dose: Not Given Carbidopa/Levodopa (Sinemet) 1 tab PO Q8 [facility] Last Admin: 02/17/18 14:01 Dose: Not Given Cinacalcet (Sensipar) 30 mg PO DAILY [facility] Last Admin: 02/17/18 14:00 Dose: Not Given Heparin Sodium (Porcine) (Heparin) 5,000 units SC Q8 [facility] Last Admin: 02/17/18 13:51 Dose: 5,000 units Home Med (Pimavanserin Tartrate [Nuplazid]) 2 tab PO DAILY [facility] Dextrose/Sodium Chloride (Dextrose 5%-0.225% Ns 1000 Ml) 1,000 mls @ 100 mls/ hr IV .Q10H [facility] Last Admin: 02/17/18 01:14 Dose: 100 mls/hr Piperacillin Sod/Tazobactam (Sod 2.25 gm/ Sodium Chloride) 100 mls @ 200 mls/ hr IVPB Q8H [facility] PRN Reason: Protocol Last Admin: 02/17/18 09:29 Dose: 200 mls/hr Metoprolol Tartrate (Lopressor) 25 mg PO DAILY [facility] Last Admin: 02/17/18 09:14 Dose: Not Given Pantoprazole Sodium (Protonix Inj) 40 mg IVP DAILY [facility] Last Admin: 02/17/18 09:27 Dose: 40 mg Vitamin A (Vitamin A & D Oint Ud Foilpak) 2 ea TOP Q8 PRN PRN Reason: Dry mouth Physical Exam - Constitutional Appears: Toxic, Cachectic, Chronically Ill - Head Exam Head Exam: NORMAL INSPECTION, NORMOCEPHALIC - Eye Exam Eye Exam: Normal appearance Pupil Exam: PERRL - ENT Exam ENT Exam: Mucous Membranes Dry - Neck Exam Neck exam: Positive for: Normal Inspection - Respiratory Exam Respiratory Exam: Clear to Auscultation Bilateral, NORMAL BREATHING PATTERN - Cardiovascular Exam Cardiovascular Exam: Tachycardia - GI/Abdominal Exam GI & Abdominal Exam: Normal Bowel Sounds, Soft - Extremities Exam Extremities exam: Positive for: normal inspection - Neurological Exam Neurological exam: Altered - Skin Skin Exam: Dry, Intact Results - Vital Signs Recent Vital Signs: Last Vital Signs Temp 96.8 F L 02/17/18 08:00 Pulse 78 02/17/18 12:17 Resp 16 02/17/18 12:17 BP 85/31 L 02/17/18 12:17 Pulse Ox 97 02/17/18 12:17 - Labs Result Diagrams: 02/17/18 06:22 02/17/18 13:35 Labs: Laboratory Results - last 24 hr 02/16/18 02/16/18 02/16/18 21:29 21:52 22:00 WBC 17.8 H D RBC 4.78 Hgb 14.9 D Hct 45.4 MCV 95.1 H MCH 31.3 H MCHC 32.9 L RDW 14.8 H Plt Count 206 MPV 12.6 H Neut % (Auto) 89.5 H Lymph % (Auto) 6.4 L [place] % (Auto) 4.0 Eos % (Auto) 0.0 Baso % (Auto) 0.1 Neut # (Auto) 15.9 H Lymph # (Auto) 1.1 [place] # (Auto) 0.7 Eos # (Auto) 0.0 Baso # (Auto) 0.0 Neutrophils % (Manual) 77 H Band Neutrophils % 9 H Lymphocytes % (Manual) 9 L Monocytes % (Manual) 5 Platelet Estimate Normal Large Platelets RBC Morphology Anisocytosis (manual) Slight PT INR APTT pO2 13 L VBG pH 7.31 L VBG pCO2 33 L VBG HCO3 15.9 VBG Total CO2 17.6 L VBG O2 Sat (Calc) 24.9 L VBG Base Excess -8.6 L VBG Potassium 4.8 Sodium 165.0 H* Chloride 133.0 H Glucose 110 Lactate 2.2 H Crit Value Called To mckenzie Nettles md Crit Value Called By Alba Crit Value Read Back Y Blood Gas Notified Time 2157 Potassium Carbon Dioxide Anion Gap BUN Creatinine Est GFR ( Amer) Est GFR (Non-Af Amer) Random Glucose Lactic Acid Calcium Magnesium Total Bilirubin AST ALT Alkaline Phosphatase Total Protein Albumin Globulin Albumin/Globulin Ratio Lipase Venous Blood Potassium 4.8 Urine Color Radha Urine Clarity Hazy Urine pH 5.0 Ur Specific [place] 1.018 Urine Protein Negative Urine Glucose (UA) Normal Urine Ketones Negative Urine Blood Negative Urine Nitrate Negative Urine Bilirubin Negative Urine Urobilinogen Normal Ur Leukocyte Esterase Trace Urine WBC (Auto) 6 H Urine RBC (Auto) 4 H Ur Squamous Epith Cells < 1 Amorphous Sediment Rare H Urine Bacteria Rare 02/16/18 02/16/18 02/17/18 22:00 22:00 03:40 WBC RBC Hgb Hct MCV MCH MCHC RDW Plt Count MPV Neut % (Auto) Lymph % (Auto) [place] % (Auto) Eos % (Auto) Baso % (Auto) Neut # (Auto) Lymph # (Auto) [place] # (Auto) Eos # (Auto) Baso # (Auto) Neutrophils % (Manual) Band Neutrophils % Lymphocytes % (Manual) Monocytes % (Manual) Platelet Estimate Large Platelets RBC Morphology Anisocytosis (manual) PT 14.1 H INR 1.3 APTT 37 H pO2 VBG pH VBG pCO2 VBG HCO3 VBG Total CO2 VBG O2 Sat (Calc) VBG Base Excess VBG Potassium Sodium 169 H* 165 H* Chloride 127 H 129 H Glucose Lactate Crit Value Called To Crit Value Called By Crit Value Read Back Blood Gas Notified Time Potassium 5.9 H 5.6 H Carbon Dioxide 17 L 14 L Anion Gap 31 H 28 H BUN 271 H* D 245 H* Creatinine 7.7 H* D 6.9 H Est GFR ( Amer) 8 9 Est GFR (Non-Af Amer) 7 8 Random Glucose 113 H 217 H Lactic Acid Calcium 10.5 H 9.1 Magnesium 3.4 H Total Bilirubin 0.7 0.8 AST 39 33 ALT 19 L D 18 L Alkaline Phosphatase 127 H 93 Total Protein 6.9 5.4 L Albumin 3.8 2.9 L D Globulin 3.1 2.6 Albumin/Globulin Ratio 1.2 1.1 Lipase 54 Venous Blood Potassium Urine Color Urine Clarity Urine pH Ur Specific [place] Urine Protein Urine Glucose (UA) Urine Ketones Urine Blood Urine Nitrate Urine Bilirubin Urine Urobilinogen Ur Leukocyte Esterase Urine WBC (Auto) Urine RBC (Auto) Ur Squamous Epith Cells Amorphous Sediment Urine Bacteria 02/17/18 02/17/18 02/17/18 06:22 06:22 13:00 WBC 11.5 H RBC 3.44 L Hgb 11.0 L D Hct 32.8 L MCV 95.1 H MCH 31.8 H MCHC 33.5 RDW 14.7 H Plt Count 155 MPV 11.5 Neut % (Auto) 89.4 H Lymph % (Auto) 6.1 L [place] % (Auto) 4.4 Eos % (Auto) 0.0 Baso % (Auto) 0.1 Neut # (Auto) 10.3 H Lymph # (Auto) 0.7 L [place] # (Auto) 0.5 Eos # (Auto) 0.0 Baso # (Auto) 0.0 Neutrophils % (Manual) 77 H Band Neutrophils % 12 H* Lymphocytes % (Manual) 7 L Monocytes % (Manual) 4 Platelet Estimate Normal Large Platelets Present RBC Morphology Normal Anisocytosis (manual) PT INR APTT pO2 VBG pH VBG pCO2 VBG HCO3 VBG Total CO2 VBG O2 Sat (Calc) VBG Base Excess VBG Potassium Sodium 164 H* Chloride 131 H Glucose Lactate Crit Value Called To Crit Value Called By Crit Value Read Back Blood Gas Notified Time Potassium 5.0 Carbon Dioxide 14 L Anion Gap 24 H BUN 225 H* Creatinine 6.5 H Est GFR ( Amer) 10 Est GFR (Non-Af Amer) 8 Random Glucose 113 H Lactic Acid 1.2 Calcium 8.1 L Magnesium Total Bilirubin 0.4 AST 31 ALT 18 L Alkaline Phosphatase 85 Total Protein 4.9 L Albumin 2.4 L Globulin 2.4 Albumin/Globulin Ratio 1.0 Lipase Venous Blood Potassium Urine Color Urine Clarity Urine pH Ur Specific [place] Urine Protein Urine Glucose (UA) Urine Ketones Urine Blood Urine Nitrate Urine Bilirubin Urine Urobilinogen Ur Leukocyte Esterase Urine WBC (Auto) Urine RBC (Auto) Ur Squamous Epith Cells Amorphous Sediment Urine Bacteria 02/17/18 02/17/18 13:35 13:35 WBC RBC Hgb Hct MCV MCH MCHC RDW Plt Count MPV Neut % (Auto) Lymph % (Auto) [place] % (Auto) Eos % (Auto) Baso % (Auto) Neut # (Auto) Lymph # (Auto) [place] # (Auto) Eos # (Auto) Baso # (Auto) Neutrophils % (Manual) Band Neutrophils % Lymphocytes % (Manual) Monocytes % (Manual) Platelet Estimate Large Platelets RBC Morphology Anisocytosis (manual) PT 16.9 H INR 1.5 APTT 38 H pO2 VBG pH VBG pCO2 VBG HCO3 VBG Total CO2 VBG O2 Sat (Calc) VBG Base Excess VBG Potassium Sodium 162 H* Chloride 131 H Glucose Lactate Crit Value Called To Crit Value Called By Crit Value Read Back Blood Gas Notified Time Potassium 5.2 Carbon Dioxide 12 L Anion Gap 24 H BUN 220 H* Creatinine 6.0 H Est GFR ( Amer) 11 Est GFR (Non-Af Amer) 9 Random Glucose 102 Lactic Acid Calcium 8.0 L Magnesium Total Bilirubin 0.5 AST 51 ALT 27 Alkaline Phosphatase 115 Total Protein 4.7 L Albumin 2.6 L Globulin 2.1 L Albumin/Globulin Ratio 1.2 Lipase Venous Blood Potassium Urine Color Urine Clarity Urine pH Ur Specific [place] Urine Protein Urine Glucose (UA) Urine Ketones Urine Blood Urine Nitrate Urine Bilirubin Urine Urobilinogen Ur Leukocyte Esterase Urine WBC (Auto) Urine RBC (Auto) Ur Squamous Epith Cells Amorphous Sediment Urine Bacteria Assessment & Plan (1) Acute kidney failure Status: Acute (2) CKD (chronic kidney disease) Status: Acute (3) Electrolyte imbalance Status: Acute (4) Hyperkalemia Status: Acute (5) Hypernatremia Status: Acute (6) Severe dehydration Status: Acute (7) Alzheimer disease Status: Acute (8) Parkinsons disease Status: Acute - Assessment and Plan (Free Text) Assessment: # diana / dehydration/severe azotemia # ckd 4 # hypernatremia # hyperkalemia # met acidosis plan: iv fluids w/ bicarb, hypotonic r/o sepsis. antibiotics check renal US discussed w/ son over phone, pt is a poor candidate for chronic dialysis
[2018-02-17] MEDS: Vitamins A & D Oint UD Foilpak TOP PRN ×2 (17:26→22:13)
[2018-02-17] MEDS: Sodium Bicarbonate 8.4% 50 MEQ in Dextrose 5% In Water 1,000 ML IV SCH (18:23)
--- NOTE | 2018-02-17 22:52 | CP.PCM.HP ---
History of Present Illness - History of Present Illness History of Present Illness: History Of Present Illness 87 y/o male presents to ED from residential for abnormal blood work, possible dehydration and hypernatremia. Unable to obtain history due to patient's medical condition of dementia. Past Patient History - Past Medical History & Family History Past Medical History?: Yes - Past Social History Smoking Status: unable to - CARDIAC Hx Hypertension: Yes - PULMONARY Hx Respiratory Disorders: No - NEUROLOGICAL Hx Alzheimer's Disease: Yes Hx Parkinson's Disease: Yes - HEENT Hx HEENT Problems: No - RENAL Hx Chronic Kidney Disease: Yes - ENDOCRINE/METABOLIC Hx Endocrine Disorders: No - HEMATOLOGICAL/ONCOLOGICAL Hx Blood Disorders: No - INTEGUMENTARY Hx Dermatological Problems: No - MUSCULOSKELETAL/RHEUMATOLOGICAL Hx Falls: No - GASTROINTESTINAL Hx Gastrointestinal Disorders: No - GENITOURINARY/GYNECOLOGICAL Hx Genitourinary Disorders: Yes Hx Incontinence: Yes Hx Prostate Problems: Yes (BPH) - PSYCHIATRIC Hx Substance Use: No - SURGICAL HISTORY Hx Surgeries: Yes Other/Comment: Pacemaker insertion - ANESTHESIA Hx Anesthesia: Yes Hx Anesthesia Reactions: No Hx Malignant Hyperthermia: No Meds Allergies/Adverse Reactions: Allergies Allergy/AdvReac Type Severity Reaction Status Date / Time No Known Allergies Allergy Verified 02/17/18 04:28 Results - Vital Signs Recent Vital Signs: Last Vital Signs Temp 97.6 F 02/17/18 20:00 Pulse 75 02/17/18 22:38 Resp 17 02/17/18 22:38 BP 90/43 L 02/17/18 22:38 Pulse Ox 100 02/17/18 22:38 - Labs Result Diagrams: 02/17/18 06:22 02/17/18 13:35 Labs: Laboratory Results - last 24 hr 02/16/18 02/17/18 02/17/18 21:29 03:40 06:22 WBC 11.5 H RBC 3.44 L Hgb 11.0 L D Hct 32.8 L MCV 95.1 H MCH 31.8 H MCHC 33.5 RDW 14.7 H Plt Count 155 MPV 11.5 Neut % (Auto) 89.4 H Lymph % (Auto) 6.1 L [place] % (Auto) 4.4 Eos % (Auto) 0.0 Baso % (Auto) 0.1 Neut # (Auto) 10.3 H Lymph # (Auto) 0.7 L [place] # (Auto) 0.5 Eos # (Auto) 0.0 Baso # (Auto) 0.0 Neutrophils % (Manual) 77 H Band Neutrophils % 12 H* Lymphocytes % (Manual) 7 L Monocytes % (Manual) 4 Platelet Estimate Normal Large Platelets Present RBC Morphology Normal PT INR APTT Sodium 165 H* Potassium 5.6 H Chloride 129 H Carbon Dioxide 14 L Anion Gap 28 H BUN 245 H* Creatinine 6.9 H Est GFR ( Amer) 9 Est GFR (Non-Af Amer) 8 Random Glucose 217 H Lactic Acid Calcium 9.1 Total Bilirubin 0.8 AST 33 ALT 18 L Alkaline Phosphatase 93 Total Protein 5.4 L Albumin 2.9 L D Globulin 2.6 Albumin/Globulin Ratio 1.1 Procalcitonin Urine Color Radha Urine Clarity Hazy Urine pH 5.0 Ur Specific [place] 1.018 Urine Protein Negative Urine Glucose (UA) Normal Urine Ketones Negative Urine Blood Negative Urine Nitrate Negative Urine Bilirubin Negative Urine Urobilinogen Normal Ur Leukocyte Esterase Trace Urine WBC (Auto) 6 H Urine RBC (Auto) 4 H Ur Squamous Epith Cells < 1 Amorphous Sediment Rare H Urine Bacteria Rare 02/17/18 02/17/18 02/17/18 06:22 13:00 13:35 WBC RBC Hgb Hct MCV MCH MCHC RDW Plt Count MPV Neut % (Auto) Lymph % (Auto) [place] % (Auto) Eos % (Auto) Baso % (Auto) Neut # (Auto) Lymph # (Auto) [place] # (Auto) Eos # (Auto) Baso # (Auto) Neutrophils % (Manual) Band Neutrophils % Lymphocytes % (Manual) Monocytes % (Manual) Platelet Estimate Large Platelets RBC Morphology PT INR APTT Sodium 164 H* Potassium 5.0 Chloride 131 H Carbon Dioxide 14 L Anion Gap 24 H BUN 225 H* Creatinine 6.5 H Est GFR ( Amer) 10 Est GFR (Non-Af Amer) 8 Random Glucose 113 H Lactic Acid 1.2 Calcium 8.1 L Total Bilirubin 0.4 AST 31 ALT 18 L Alkaline Phosphatase 85 Total Protein 4.9 L Albumin 2.4 L Globulin 2.4 Albumin/Globulin Ratio 1.0 Procalcitonin 2.32 H Urine Color Urine Clarity Urine pH Ur Specific [place] Urine Protein Urine Glucose (UA) Urine Ketones Urine Blood Urine Nitrate Urine Bilirubin Urine Urobilinogen Ur Leukocyte Esterase Urine WBC (Auto) Urine RBC (Auto) Ur Squamous Epith Cells Amorphous Sediment Urine Bacteria 02/17/18 02/17/18 13:35 13:35 WBC RBC Hgb Hct MCV MCH MCHC RDW Plt Count MPV Neut % (Auto) Lymph % (Auto) [place] % (Auto) Eos % (Auto) Baso % (Auto) Neut # (Auto) Lymph # (Auto) [place] # (Auto) Eos # (Auto) Baso # (Auto) Neutrophils % (Manual) Band Neutrophils % Lymphocytes % (Manual) Monocytes % (Manual) Platelet Estimate Large Platelets RBC Morphology PT 16.9 H INR 1.5 APTT 38 H Sodium 162 H* Potassium 5.2 Chloride 131 H Carbon Dioxide 12 L Anion Gap 24 H BUN 220 H* Creatinine 6.0 H Est GFR ( Amer) 11 Est GFR (Non-Af Amer) 9 Random Glucose 102 Lactic Acid Calcium 8.0 L Total Bilirubin 0.5 AST 51 ALT 27 Alkaline Phosphatase 115 Total Protein 4.7 L Albumin 2.6 L Globulin 2.1 L Albumin/Globulin Ratio 1.2 Procalcitonin Urine Color Urine Clarity Urine pH Ur Specific [place] Urine Protein Urine Glucose (UA) Urine Ketones Urine Blood Urine Nitrate Urine Bilirubin Urine Urobilinogen Ur Leukocyte Esterase Urine WBC (Auto) Urine RBC (Auto) Ur Squamous Epith Cells Amorphous Sediment Urine Bacteria
[2018-02-18] MEDS: Carbidopa/Levodopa 25/250 PO SCH ×3 (05:20→21:57)
[2018-02-18] MEDS: Sodium Bicarbonate 8.4% 50 MEQ in Dextrose 5% In Water 1,000 ML IV SCH ×2 (05:20→15:29)
[2018-02-18 06:21] LABS: BASO % 0.2 % (0.0-2.0); EOS % 0.5 % (0.0-4.0); HEMOGLOBIN 10.1 g/dL (12.0-18.0); LYMPH # 0.9 K/uL (1.0-4.3); LYMPH % 9.4 % (20.0-40.0); MEAN CELL VOLUME 95.2 fL (80.0-94.0); MEAN CORPUSCULAR HEMOGLOBIN 31.6 pg (27.0-31.0); MEAN CORPUSCULAR HGB CONC 33.2 g/dL (33.0-37.0); MONO # 0.4 K/uL (0.0-0.8); MONO % 4.1 % (0.0-10.0); NEUT # 8.4 K/uL (1.8-7.0); NEUT % 85.8 % (50.0-75.0); PLATELET COUNT 116 K/uL (130-400); RBC 3.18 Mil/uL (4.40-5.90); RED CELL DISTRIBUTION WIDTH 14.9 % (11.5-14.5); WHITE BLOOD COUNT 9.8 K/uL (4.8-10.8)
[2018-02-18 06:52] LABS: ALBUMIN 2.4 g/dL (3.5-5.0); CALCIUM 8.1 mg/dl (8.6-10.4)
[2018-02-18 08:12] LABS: LYMPHOCYTE 13 % (20-40); MONOCYTE 1 % (0-10); NEUTROPHIL 86 % (50-75); TOTAL CELLS COUNTED 100
[2018-02-18 08:14] LABS: PLATELET ESTIMATE SLIGHTLY DECREASED (NORMAL)
[2018-02-18] MEDS: Piperacillin/Tazobact 2.25 GM in Sodium Chloride 100 ML IVPB SCH ×2 (09:20→15:35)
--- NOTE | 2018-02-18 12:39 | CP.PCM.CON ---
History of Present Illness - History of Present Illness History of Present Illness: Palliative consult requested by Doctor Alex for goals of care discussion Patient is a 87yo male admitted from [place] with abnormal labs. Na 165. Patient looked dehydrated. Diagnosed with metabolic acidosis and dehydration. Transfered to ICU, on Bi Carbs drip. BUN and Insurance Processing Clerk are worsening. The HD is questionable in regards of life expectancy and quality of life. palliative care consulted to assist in goals of care process. PMH: alzheimer's, HTN, parkinson's, CKD, PPM Soc. Hx: [place] resident, , has a son and brother Fam. Hx: unobtainable from the patient due to condition Review of Systems - Review of Systems All systems: reviewed and no additional remarkable complaints except Review of Systems: ROS unobtainable from the patient due to lethargy. per nursing patient remains chronically ill with rising BUN and Insurance Processing Clerk Past Patient History - Past Medical History & Family History Past Medical History?: Yes - Past Social History Smoking Status: unable to - CARDIAC Hx Hypertension: Yes - PULMONARY Hx Respiratory Disorders: No - NEUROLOGICAL Hx Alzheimer's Disease: Yes Hx Parkinson's Disease: Yes - HEENT Hx HEENT Problems: No - RENAL Hx Chronic Kidney Disease: Yes - ENDOCRINE/METABOLIC Hx Endocrine Disorders: No - HEMATOLOGICAL/ONCOLOGICAL Hx Blood Disorders: No - INTEGUMENTARY Hx Dermatological Problems: No - MUSCULOSKELETAL/RHEUMATOLOGICAL Hx Falls: No - GASTROINTESTINAL Hx Gastrointestinal Disorders: No - GENITOURINARY/GYNECOLOGICAL Hx Genitourinary Disorders: Yes Hx Incontinence: Yes Hx Prostate Problems: Yes (BPH) - PSYCHIATRIC Hx Substance Use: No - SURGICAL HISTORY Hx Surgeries: Yes Other/Comment: Pacemaker insertion - ANESTHESIA Hx Anesthesia: Yes Hx Anesthesia Reactions: No Hx Malignant Hyperthermia: No Meds Allergies/Adverse Reactions: Allergies Allergy/AdvReac Type Severity Reaction Status Date / Time No Known Allergies Allergy Verified 02/17/18 04:28 - Medications Medications: Current Medications Carbidopa/Levodopa (Sinemet) 1 tab PO Q8 [facility] Last Admin: 02/18/18 05:20 Dose: Not Given Heparin Sodium (Porcine) (Heparin) 5,000 units SC Q8 [facility] Last Admin: 02/18/18 05:20 Dose: 5,000 units Piperacillin Sod/Tazobactam (Sod 2.25 gm/ Sodium Chloride) 100 mls @ 200 mls/ hr IVPB Q8H [facility] PRN Reason: Protocol Last Admin: 02/18/18 09:20 Dose: 200 mls/hr Norepinephrine Bitartrate 4 mg (/ Sodium Chloride) 254 mls @ 19.05 mls/hr IV .[id number] PRN; Protocol; 5 MCG/MIN PRN Reason: TITRATE PER MD ORDER Sodium Bicarbonate 50 meq/ (Dextrose) 1,050 mls @ 100 mls/hr IV .[id number] [facility] Last Admin: 02/18/18 05:20 Dose: 100 mls/hr Metoprolol Tartrate (Lopressor) 25 mg PO DAILY [facility] Last Admin: 02/18/18 09:17 Dose: Not Given Pantoprazole Sodium (Protonix Inj) 40 mg IVP DAILY [facility] Last Admin: 02/18/18 09:19 Dose: 40 mg Vitamin A (Vitamin A & D Oint Ud Foilpak) 2 ea TOP Q8 PRN PRN Reason: Dry mouth Last Admin: 02/17/18 22:13 Dose: 2 ea Physical Exam - Constitutional Appears: Chronically Ill - Head Exam Head Exam: ATRAUMATIC, NORMAL INSPECTION, NORMOCEPHALIC - Eye Exam Eye Exam: EOMI, Normal appearance, PERRL Pupil Exam: NORMAL ACCOMODATION, PERRL - ENT Exam ENT Exam: Mucous Membranes Moist, Normal Exam - Neck Exam Neck exam: Positive for: Normal Inspection - Respiratory Exam Respiratory Exam: Decreased Breath Sounds, NORMAL BREATHING PATTERN - Cardiovascular Exam Cardiovascular Exam: Tachycardia, REGULAR RHYTHM - GI/Abdominal Exam GI & Abdominal Exam: Normal Bowel Sounds, Soft - Rectal Exam Rectal Exam: Deferred - Exam Additional comments: Storey cath - Extremities Exam Extremities exam: Positive for: normal inspection - Back Exam Back exam: NORMAL INSPECTION - Neurological Exam Neurological exam: Alert, Altered - Psychiatric Exam Psychiatric exam: Flat Affect - Skin Skin Exam: Normal Color, Warm Results - Vital Signs Recent Vital Signs: Last Vital Signs Temp 98.1 F 02/18/18 12:00 Pulse 75 02/18/18 12:00 Resp 12 02/18/18 12:00 BP 108/56 L 02/18/18 12:00 Pulse Ox 100 02/18/18 12:00 - Labs Result Diagrams: 02/19/18 06:24 02/19/18 06:22 Labs: Laboratory Results - last 24 hr 02/17/18 02/17/18 02/17/18 13:00 13:35 13:35 WBC RBC Hgb Hct MCV MCH MCHC RDW Plt Count MPV Neut % (Auto) Lymph % (Auto) [place] % (Auto) Eos % (Auto) Baso % (Auto) Neut # (Auto) Lymph # (Auto) [place] # (Auto) Eos # (Auto) Baso # (Auto) Neutrophils % (Manual) Lymphocytes % (Manual) Monocytes % (Manual) Platelet Estimate RBC Morphology PT INR APTT Sodium 162 H* Potassium 5.2 Chloride 131 H Carbon Dioxide 12 L Anion Gap 24 H BUN 220 H* Creatinine 6.0 H Est GFR ( Amer) 11 Est GFR (Non-Af Amer) 9 Random Glucose 102 Lactic Acid 1.2 Calcium 8.0 L Phosphorus Magnesium Total Bilirubin 0.5 AST 51 ALT 27 Alkaline Phosphatase 115 Total Protein 4.7 L Albumin 2.6 L Globulin 2.1 L Albumin/Globulin Ratio 1.2 Procalcitonin 2.32 H 02/17/18 02/18/18 02/18/18 13:35 06:10 06:10 WBC 9.8 RBC 3.18 L Hgb 10.1 L Hct 30.3 L MCV 95.2 H MCH 31.6 H MCHC 33.2 RDW 14.9 H Plt Count 116 L D MPV 12.0 H Neut % (Auto) 85.8 H Lymph % (Auto) 9.4 L [place] % (Auto) 4.1 Eos % (Auto) 0.5 Baso % (Auto) 0.2 Neut # (Auto) 8.4 H Lymph # (Auto) 0.9 L [place] # (Auto) 0.4 Eos # (Auto) 0.0 Baso # (Auto) 0.0 Neutrophils % (Manual) 86 H Lymphocytes % (Manual) 13 L Monocytes % (Manual) 1 Platelet Estimate Slightly decreased L RBC Morphology Normal PT 16.9 H INR 1.5 APTT 38 H Sodium 160 H* Potassium 4.8 Chloride 127 H Carbon Dioxide 12 L Anion Gap 25 H BUN 202 H* Creatinine 6.2 H Est GFR ( Amer) 10 Est GFR (Non-Af Amer) 9 Random Glucose 88 Lactic Acid Calcium 8.1 L Phosphorus 5.1 H Magnesium 2.2 Total Bilirubin 0.6 AST 63 H D ALT 22 Alkaline Phosphatase 95 Total Protein 4.8 L Albumin 2.4 L Globulin 2.4 Albumin/Globulin Ratio 1.0 Procalcitonin Assessment & Plan - Assessment and Plan (Free Text) Assessment: Palliative consult Full Code, there is no Advance Directive on the chart, PPS 10 % I reviewed [facility]; records, all diagnostic studies, examined patient in the bed. Patient is alert, looking weak and chronically ill. Patient is unable to fallow discussion or to make meaningful Medical decisions. Patient moans softly when touched and repositioned. Skin intact. Breathing normal, with good air entry, diminished breath sounds B/L, no adventitious sounds. Abdomen soft, active bowel sounds, incontinent. Urine output about 560 cc /24 hr. BUN/ Insurance Processing Clerk are rising , 225/6.5. Renal consult was called. The chances of HD ddiscussed with family, but no decision is made just yet. Patient is able to freely move all 4 extremities with limited ROM. Mild pedal edema. BP 108/56, HR 72. Levophed IV on board. Na 160, Hb 10.1, platelets 116 Family meeting scheduled for 3 pm today with patient's brother. for goals of care discussion. per nursing, patient daughter called in and confirmed meeting. 3 pm No family members came for the meeting. I called again the number and chart and left voice mail Patient seen by Doctor De Los Santos and shawnao kina for clearance given. It is still not decided on intermodal dispatcher HD as family did not come to decision yet. Impression * Chronically ill male with acute kidney failure * Patient is contracted and non verbal with AMS * Patient is unable to participate in decision making process * Patient's brother and daughter are the closest family members * Decision about HD not made yet Suggestion * I do not feel that HD would be beneficial for this elderly male who clearly entered the end of his life. HD would not bring much benefices nor will improve quality of life to this old and weak man * Would consider only conservative measures aimed mostly toward patient's comfort I will continue to try to get in touch with family and bring then in for family meeting.
--- NOTE | 2018-02-18 14:48 | CP.PCM.PN ---
Subjective - Date & Time of Evaluation Date of Evaluation: 02/18/18 Time of Evaluation: 14:46 - Subjective Subjective: off pressors u/o 560 cc on ivf with hco3 family decision pending regarding dialysis seen by palliative care pt not verbal, unable to obtain ROS Objective - Vital Signs/Intake and Output Vital Signs (last 24 hours): Temp Pulse Resp BP Pulse Ox 98.1 F 91 H 11 L 106/47 L 100 02/18/18 12:00 02/18/18 13:17 02/18/18 13:17 02/18/18 13:00 02/18/18 13:00 Intake and Output: 02/18/18 02/18/18 06:59 18:59 Intake Total 1300 700 Output Total 310 Balance 990 700 - Medications Medications: Current Medications Carbidopa/Levodopa (Sinemet) 1 tab PO Q8 [facility] Last Admin: 02/18/18 05:20 Dose: Not Given Heparin Sodium (Porcine) (Heparin) 5,000 units SC Q8 [facility] Last Admin: 02/18/18 05:20 Dose: 5,000 units Piperacillin Sod/Tazobactam (Sod 2.25 gm/ Sodium Chloride) 100 mls @ 200 mls/ hr IVPB Q8H [facility] PRN Reason: Protocol Last Admin: 02/18/18 09:20 Dose: 200 mls/hr Norepinephrine Bitartrate 4 mg (/ Sodium Chloride) 254 mls @ 19.05 mls/hr IV .[id number] PRN; Protocol; 5 MCG/MIN PRN Reason: TITRATE PER MD ORDER Sodium Bicarbonate 50 meq/ (Dextrose) 1,050 mls @ 100 mls/hr IV .[id number] [facility] Last Admin: 02/18/18 05:20 Dose: 100 mls/hr Metoprolol Tartrate (Lopressor) 25 mg PO DAILY [facility] Last Admin: 02/18/18 09:17 Dose: Not Given Pantoprazole Sodium (Protonix Inj) 40 mg IVP DAILY [facility] Last Admin: 02/18/18 09:19 Dose: 40 mg Vitamin A (Vitamin A & D Oint Ud Foilpak) 2 ea TOP Q8 PRN PRN Reason: Dry mouth Last Admin: 02/17/18 22:13 Dose: 2 ea - Labs Labs: 02/18/18 06:10 02/18/18 06:10 PT 16.9 SECONDS (9.7-12.2) H 02/17/18 13:35 INR 1.5 02/17/18 13:35 APTT 38 SECONDS (21-34) H 02/17/18 13:35 - Constitutional Appears: In Acute Distress, Confused, Chronically Ill - Head Exam Head Exam: ATRAUMATIC, NORMAL INSPECTION - Eye Exam Eye Exam: EOMI, Normal appearance - ENT Exam ENT Exam: Mucous Membranes Moist - Neck Exam Neck Exam: Full ROM. absent: Lymphadenopathy - Respiratory Exam Respiratory Exam: Decreased Breath Sounds. absent: Wheezes - Cardiovascular Exam Cardiovascular Exam: Tachycardia - GI/Abdominal Exam GI & Abdominal Exam: Distended. absent: Guarding - Extremities Exam Extremities Exam: Pedal Edema Additional comments: contracted - Neurological Exam Neurological Exam: absent: Alert, Oriented x3 Assessment and Plan - Assessment and Plan (Free Text) Assessment: severe azotemia, metabolic acidosis multiple comorbidities await family decision regarding desire for acute HD not a candidate for chronic HD
[2018-02-18] MEDS ORDERED: Midazolam 2 MG/2 ML VIAL ONE (16:46)
--- NOTE | 2018-02-18 17:02 | CP.CCUPN ---
<Tuyet Bauman - Last Filed: 02/18/18 17:47> CCU Subjective - Physician Review Subjective (Free Text): 02/18/18 17:42 87 yo M w/ PMHx of HTN, pacemaker, parkinson's, renal insufficiency recent hospitalization for poor intake and dehydration, sent from [place] for evaluation of poor intake and lethargy, abnormal labs showing hypernatremia, hyperkalemia, metabolic acidosis, leukocytosis. Admitted to ICU for further management of worsening status. Right IJ(02/18) inserted for HD today. CCU Objective - Vital Signs / Intake & Output Vital Signs (Last 4 hours): Vital Signs Temp Pulse Resp BP Pulse Ox 02/18/18 16:00 96.3 F L 74 14 115/49 L 98 02/18/18 15:00 82 16 110/54 L 95 02/18/18 14:00 76 16 103/51 L 96 02/18/18 13:17 91 H 11 L 02/18/18 13:00 76 16 106/47 L 100 Intake and Output (Last 8hrs): Intake & Output 02/18/18 02/18/18 02/18/18 06:59 14:59 22:59 Intake Total 900 800 200 Output Total 225 Balance 675 800 200 Weight 117 lb 14.4 oz Intake: Intake, IV Amount 900 800 200 Left Upper arm 800 800 200 Right Antecubital 100 Oral 0 0 0 Output: Urine 225 Urethral (Storey) 225 Other: # Bowel Movements 1 - Physical Exam Physical Exam Limitations: Positive for: Altered Mental Status Head: Positive for: Atraumatic, Normocephalic Mouth: Positive for: Dry (mouth severely dry and dirty) Respiratory/Chest: Positive for: Clear to Auscultation. Negative for: Respiratory Distress, Accessory Muscle Use, Tachypneic Cardiovascular: Positive for: Regular Rate and Rhythm, Normal S1, S2. Negative for: Murmurs, Tachycardic Abdomen: Positive for: Normal Bowel Sounds. Negative for: Distention Upper Extremity: Positive for: Normal Inspection Lower Extremity: Positive for: Normal Inspection Neurological: Negative for: GCS=15 Skin: Positive for: Dry Psychiatric: Negative for: Oriented x 3 - Medications Active Medications: Active Medications Generic Name Dose Route Start Last Admin Trade Name Freq PRN Reason Stop Dose Admin Carbidopa/Levodopa 1 tab 02/17/18 06:00 02/18/18 15:00 Sinemet PO Not Given Q8 [facility] Heparin Sodium (Porcine) 5,000 units 02/17/18 06:00 02/18/18 15:00 Heparin SC 5,000 units Q8 [facility] Administration Piperacillin Sod/Tazobactam 100 mls @ 200 mls/hr 02/17/18 00:30 02/18/18 15: 35 Sod 2.25 gm/ Sodium Chloride IVPB 200 mls/hr Q8H [facility] Administration Protocol Norepinephrine Bitartrate 4 mg 254 mls @ 19.05 mls/hr 02/17/18 17:16 / Sodium Chloride IV .[id number] PRN TITRATE PER MD ORDER Protocol 5 MCG/MIN Sodium Bicarbonate 50 meq/ 1,050 mls @ 100 mls/hr 02/17/18 17:30 02/18/18 15: 29 Dextrose IV 100 mls/hr .[id number] [facility] Administration Metoprolol Tartrate 25 mg 02/17/18 10:00 02/18/18 09:17 Lopressor PO Not Given DAILY [facility] Pantoprazole Sodium 40 mg 02/17/18 10:00 02/18/18 09:19 Protonix Inj IVP 40 mg DAILY [facility] Administration Vitamin A 2 ea 02/17/18 10:03 02/17/18 22:13 Vitamin A & D Oint Ud Foilpak TOP 2 ea Q8 PRN Administration Dry mouth - Patient Studies Lab Studies: Microbiology Studies 02/17/18 10:38 MRSA Culture (Admit) - Final Nose 02/17/18 19:49 Urine Culture - Final Urine,Catheterized No Growth (<1,000 CFU/ML) 02/17/18 03:40 Blood Culture - Preliminary Blood NO GROWTH AFTER 24 HOURS 02/17/18 03:40 Blood Culture - Preliminary Blood NO GROWTH AFTER 24 HOURS Lab Studies 02/18/18 02/18/18 02/17/18 Range/Units 06:10 06:10 13:35 WBC 9.8 (4.8-10.8) K/uL RBC 3.18 L (4.40-5.90) Mil/uL Hgb 10.1 L (12.0-18.0) g/dL Hct 30.3 L (35.0-51.0) % MCV 95.2 H (80.0-94.0) fL MCH 31.6 H (27.0-31.0) pg MCHC 33.2 (33.0-37.0) g/dL RDW 14.9 H (11.5-14.5) % Plt Count 116 L D (130-400) K/uL MPV 12.0 H (7.2-11.7) fL Neut % (Auto) 85.8 H (50.0-75.0) % Lymph % (Auto) 9.4 L (20.0-40.0) % [place] % (Auto) 4.1 (0.0-10.0) % Eos % (Auto) 0.5 (0.0-4.0) % Baso % (Auto) 0.2 (0.0-2.0) % Neut # (Auto) 8.4 H (1.8-7.0) K/uL Lymph # (Auto) 0.9 L (1.0-4.3) K/uL [place] # (Auto) 0.4 (0.0-0.8) K/uL Eos # (Auto) 0.0 (0.0-0.7) K/uL Baso # (Auto) 0.0 (0.0-0.2) K/uL Neutrophils % (Manual) 86 H (50-75) % Lymphocytes % (Manual) 13 L (20-40) % Monocytes % (Manual) 1 (0-10) % Platelet Estimate Slightly decreased L (NORMAL) RBC Morphology Normal Sodium 160 H* (132-148) mmol/L Potassium 4.8 (3.6-5.2) mmol/L Chloride 127 H (98-107) mmol/L Carbon Dioxide 12 L (22-30) mmol/L Anion Gap 25 H (10-20) BUN 202 H* (9-20) mg/dL Creatinine 6.2 H (0.8-1.5) mg/dL Est GFR ( Amer) 10 Est GFR (Non-Af Amer) 9 Random Glucose 88 (75-110) mg/dL Calcium 8.1 L (8.6-10.4) mg/dl Phosphorus 5.1 H (2.5-4.5) mg/dL Magnesium 2.2 (1.6-2.3) mg/dL Total Bilirubin 0.6 (0.2-1.3) mg/dL AST 63 H D (17-59) U/L ALT 22 (21-72) U/L Alkaline Phosphatase 95 (38-126) U/L Total Protein 4.8 L (6.3-8.3) g/dL Albumin 2.4 L (3.5-5.0) g/dL Globulin 2.4 (2.2-3.9) gm/dL Albumin/Globulin Ratio 1.0 (1.0-2.1) Procalcitonin 2.32 H (0.19-0.49) NG/ML Laboratory Results - last 24 hr 02/17/18 02/18/18 02/18/18 13:35 06:10 06:10 WBC 9.8 RBC 3.18 L Hgb 10.1 L Hct 30.3 L MCV 95.2 H MCH 31.6 H MCHC 33.2 RDW 14.9 H Plt Count 116 L D MPV 12.0 H Neut % (Auto) 85.8 H Lymph % (Auto) 9.4 L [place] % (Auto) 4.1 Eos % (Auto) 0.5 Baso % (Auto) 0.2 Neut # (Auto) 8.4 H Lymph # (Auto) 0.9 L [place] # (Auto) 0.4 Eos # (Auto) 0.0 Baso # (Auto) 0.0 Neutrophils % (Manual) 86 H Lymphocytes % (Manual) 13 L Monocytes % (Manual) 1 Platelet Estimate Slightly decreased L RBC Morphology Normal Sodium 160 H* Potassium 4.8 Chloride 127 H Carbon Dioxide 12 L Anion Gap 25 H BUN 202 H* Creatinine 6.2 H Est GFR ( Amer) 10 Est GFR (Non-Af Amer) 9 Random Glucose 88 Calcium 8.1 L Phosphorus 5.1 H Magnesium 2.2 Total Bilirubin 0.6 AST 63 H D ALT 22 Alkaline Phosphatase 95 Total Protein 4.8 L Albumin 2.4 L Globulin 2.4 Albumin/Globulin Ratio 1.0 Procalcitonin 2.32 H Review of Systems - Review of Systems Systems not reviewed;Unavailable: Altered Mental Status Critical Care Progress Note - Nutrition Nutrition: Nutrition Category Date Time Status Renal Diet [DIET] Diets 02/17/18 Breakfast Active Assessment/Plan - Assessment and Plan (Free Text) Assessment: 87 yo M admitted to ICU for hyperkalemia, hypernatremia, metabolic acidosis, leukocytosis 2/2 to severe dehydration and poor intake 1. Hypernatremia -Na-160 today -D5w @100/hr 2. Hyperkalemia -K-4.8 today -HD today 3. Metabolic acidosis -1 amp sodium bicarb -anion gap 21 -ABGs 4. Leukocytosis -WBC 9.8 today, improving -zosyn 2.25 q8 -f/u blood cx 5. CKD -Bun/Cr-202/6.2 -R IJ HD catheter inserted -HD today -renal diet -nephro consult Dr. De Los Santos 6. HTN -metoprolol 25mg 7. Parkinson's -Carbi-levo Ppx -protonix 40mg heparin 5000 sc - Date & Time Date: 02/18/18 Time: 18:05 <Mayo Johnson S - Last Filed: 02/18/18 18:36> CCU Objective - Vital Signs / Intake & Output Vital Signs (Last 4 hours): Vital Signs Temp Pulse Resp BP Pulse Ox 02/18/18 17:00 86 14 109/51 L 94 L 02/18/18 16:00 96.3 F L 74 14 115/49 L 98 02/18/18 15:00 82 16 110/54 L 95 Intake and Output (Last 8hrs): Intake & Output 02/18/18 02/18/18 02/18/18 06:59 14:59 22:59 Intake Total 900 800 300 Output Total 225 Balance 675 800 300 Weight 117 lb 14.4 oz Intake: Intake, IV Amount 900 800 300 Left Upper arm 800 800 300 Right Antecubital 100 Oral 0 0 0 Output: Urine 225 Urethral (Storey) 225 Other: # Bowel Movements 1 - Medications Active Medications: Active Medications Generic Name Dose Route Start Last Admin Trade Name Freq PRN Reason Stop Dose Admin Carbidopa/Levodopa 1 tab 02/17/18 06:00 02/18/18 15:00 Sinemet PO Not Given Q8 [facility] Heparin Sodium (Porcine) 5,000 units 02/17/18 06:00 02/18/18 15:00 Heparin SC 5,000 units Q8 [facility] Administration Piperacillin Sod/Tazobactam 100 mls @ 200 mls/hr 02/17/18 00:30 02/18/18 15: 35 Sod 2.25 gm/ Sodium Chloride IVPB 200 mls/hr Q8H [facility] Administration Protocol Norepinephrine Bitartrate 4 mg 254 mls @ 19.05 mls/hr 02/17/18 17:16 / Sodium Chloride IV .[id number] PRN TITRATE PER MD ORDER Protocol 5 MCG/MIN Sodium Bicarbonate 50 meq/ 1,050 mls @ 100 mls/hr 02/17/18 17:30 02/18/18 15: 29 Dextrose IV 100 mls/hr .[id number] [facility] Administration Metoprolol Tartrate 25 mg 02/17/18 10:00 02/18/18 09:17 Lopressor PO Not Given DAILY [facility] Pantoprazole Sodium 40 mg 02/17/18 10:00 02/18/18 09:19 Protonix Inj IVP 40 mg DAILY [facility] Administration Vitamin A 2 ea 02/17/18 10:03 02/17/18 22:13 Vitamin A & D Oint Ud Foilpak TOP 2 ea Q8 PRN Administration Dry mouth - Patient Studies Lab Studies: Microbiology Studies 02/17/18 10:38 MRSA Culture (Admit) - Final Nose 02/17/18 19:49 Urine Culture - Final Urine,Catheterized No Growth (<1,000 CFU/ML) 02/17/18 03:40 Blood Culture - Preliminary Blood NO GROWTH AFTER 24 HOURS 02/17/18 03:40 Blood Culture - Preliminary Blood NO GROWTH AFTER 24 HOURS Lab Studies 02/18/18 02/18/18 02/17/18 Range/Units 06:10 06:10 13:35 WBC 9.8 (4.8-10.8) K/uL RBC 3.18 L (4.40-5.90) Mil/uL Hgb 10.1 L (12.0-18.0) g/dL Hct 30.3 L (35.0-51.0) % MCV 95.2 H (80.0-94.0) fL MCH 31.6 H (27.0-31.0) pg MCHC 33.2 (33.0-37.0) g/dL RDW 14.9 H (11.5-14.5) % Plt Count 116 L D (130-400) K/uL MPV 12.0 H (7.2-11.7) fL Neut % (Auto) 85.8 H (50.0-75.0) % Lymph % (Auto) 9.4 L (20.0-40.0) % [place] % (Auto) 4.1 (0.0-10.0) % Eos % (Auto) 0.5 (0.0-4.0) % Baso % (Auto) 0.2 (0.0-2.0) % Neut # (Auto) 8.4 H (1.8-7.0) K/uL Lymph # (Auto) 0.9 L (1.0-4.3) K/uL [place] # (Auto) 0.4 (0.0-0.8) K/uL Eos # (Auto) 0.0 (0.0-0.7) K/uL Baso # (Auto) 0.0 (0.0-0.2) K/uL Neutrophils % (Manual) 86 H (50-75) % Lymphocytes % (Manual) 13 L (20-40) % Monocytes % (Manual) 1 (0-10) % Platelet Estimate Slightly decreased L (NORMAL) RBC Morphology Normal Sodium 160 H* (132-148) mmol/L Potassium 4.8 (3.6-5.2) mmol/L Chloride 127 H (98-107) mmol/L Carbon Dioxide 12 L (22-30) mmol/L Anion Gap 25 H (10-20) BUN 202 H* (9-20) mg/dL Creatinine 6.2 H (0.8-1.5) mg/dL Est GFR ( Amer) 10 Est GFR (Non-Af Amer) 9 Random Glucose 88 (75-110) mg/dL Calcium 8.1 L (8.6-10.4) mg/dl Phosphorus 5.1 H (2.5-4.5) mg/dL Magnesium 2.2 (1.6-2.3) mg/dL Total Bilirubin 0.6 (0.2-1.3) mg/dL AST 63 H D (17-59) U/L ALT 22 (21-72) U/L Alkaline Phosphatase 95 (38-126) U/L Total Protein 4.8 L (6.3-8.3) g/dL Albumin 2.4 L (3.5-5.0) g/dL Globulin 2.4 (2.2-3.9) gm/dL Albumin/Globulin Ratio 1.0 (1.0-2.1) Procalcitonin 2.32 H (0.19-0.49) NG/ML Laboratory Results - last 24 hr 02/17/18 02/18/18 02/18/18 13:35 06:10 06:10 WBC 9.8 RBC 3.18 L Hgb 10.1 L Hct 30.3 L MCV 95.2 H MCH 31.6 H MCHC 33.2 RDW 14.9 H Plt Count 116 L D MPV 12.0 H Neut % (Auto) 85.8 H Lymph % (Auto) 9.4 L [place] % (Auto) 4.1 Eos % (Auto) 0.5 Baso % (Auto) 0.2 Neut # (Auto) 8.4 H Lymph # (Auto) 0.9 L [place] # (Auto) 0.4 Eos # (Auto) 0.0 Baso # (Auto) 0.0 Neutrophils % (Manual) 86 H Lymphocytes % (Manual) 13 L Monocytes % (Manual) 1 Platelet Estimate Slightly decreased L RBC Morphology Normal Sodium 160 H* Potassium 4.8 Chloride 127 H Carbon Dioxide 12 L Anion Gap 25 H BUN 202 H* Creatinine 6.2 H Est GFR ( Amer) 10 Est GFR (Non-Af Amer) 9 Random Glucose 88 Calcium 8.1 L Phosphorus 5.1 H Magnesium 2.2 Total Bilirubin 0.6 AST 63 H D ALT 22 Alkaline Phosphatase 95 Total Protein 4.8 L Albumin 2.4 L Globulin 2.4 Albumin/Globulin Ratio 1.0 Procalcitonin 2.32 H Critical Care Progress Note - Nutrition Nutrition: Nutrition Category Date Time Status Renal Diet [DIET] Diets 02/17/18 Breakfast Active Attending/Attestation - Attestation I have personally seen and examined this patient.: Yes I have fully participated in the care of the patient.: Yes I have reviewed all pertinent clinical information: Yes Notes (Text): 02/18/18 18:36 Patient seen and examined in the intensive care unit. Patient remained lethargic continue fluid resuscitation Dialysis catheter inserted Hemodialysis Continue antibiotics Follow-up cultures and sensitivity
--- NOTE | 2018-02-18 17:05 | CARD ---
APPROVED REPORT Date of service: 02/16/2018 EKG Measurement Heart [id number] <Conclusion> Atrial-paced rhythm with prolonged AV conduction Left axis deviation Pulmonary disease pattern Inferior infarct, age undetermined ST & T wave abnormality, consider anterolateral ischemia Abnormal ECG
[2018-02-18] MEDS ORDERED: Midazolam 2 MG/2 ML VIAL IVP ONE (17:30)
--- NOTE | 2018-02-18 17:34 | PCM.PROC ---
Procedures Attestation:: I certify that I have explained the specified Operation(s) or Procedure(s), risks, benefits and reasonable alternatives to the Patient and/or other person responsible. The opportunity was given to ask questions and all questions answered - Central Line Placement Hemodialysis Access Aseptic technique was employed throughout the procedure: Full sterile barriers ( mask, hair cover, sterile gown, sterile gloves), Full body sterile drape, Chloraprep Antiseptic: 30 second prep for IJ or SC sites CVP Time Out Performed: Yes Pt. Placed on Pulse Ox Monitor: Yes Central Line Prep: Chlorhexidine-Alcohol Combination Local Anesthesia Used: Lidocaine 1% Ultrasound Used for Placement: Yes Central Line Lumen Inserted: double Central Line Length: 16 cm Post Procedure: Sutured in Place, Good Blood Return, All Ports Aspirated, Flushed, Capped, Sterile Dressing Applied Secured by: Suture Post procedure dressing: Clear vapor permeable, Chlorhexidine disc (Biopatch) Post Procedure X-Ray: Yes Patient Tolerated Procedure: Well
--- NOTE | 2018-02-18 17:52 | PCM.PROC ---
Procedures Attestation:: I certify that I have explained the specified Operation(s) or Procedure(s), risks, benefits and reasonable alternatives to the Patient and/or other person responsible. The opportunity was given to ask questions and all questions answered - Central Line Placement Right Internal Jugular Hemodialysis Access Aseptic technique was employed throughout the procedure: Hand Hygiene done prior to procedure, Full sterile barriers (mask, hair cover, sterile gown, sterile gloves), Chloraprep Antiseptic: 30 second prep for IJ or SC sites CVP Time Out Performed: Yes Pt. Placed on Pulse Ox Monitor: Yes Central Line Prep: Chlorhexidine-Alcohol Combination Local Anesthesia Used: Lidocaine 1% Amount of Anesthesia Used (mls): 3 Ultrasound Used for Placement: Yes Central Line Lumen Inserted: double Central Line Length: 16 cm Post Procedure: Sutured in Place, Good Blood Return, All Ports Aspirated, Flushed, Capped, Sterile Dressing Applied Secured by: Suture Post procedure dressing: Chlorhexidine disc (Biopatch) Post Procedure X-Ray: Yes Patient Tolerated Procedure: Well
[2018-02-18 19:48] LABS: HEPATITIS B SURFACE AG Negative (NEGATIVE)
[2018-02-18] MEDS ORDERED: Albumin Human 25% (12.5 gm/50 ml) IV ONE (19:48)
[2018-02-18 20:05] LABS: HEPATITIS C ANTIBODY NEGATIVE (NEGATIVE)
[2018-02-19] MEDS: Piperacillin/Tazobact 2.25 GM in Sodium Chloride 100 ML IVPB SCH ×4 (00:20→23:48)
[2018-02-19] MEDS: Sodium Bicarbonate 8.4% 50 MEQ in Dextrose 5% In Water 1,000 ML IV SCH ×3 (01:01→14:02)
[2018-02-19] MEDS: Carbidopa/Levodopa 25/250 PO SCH ×3 (06:13→21:47)
[2018-02-19] MEDS: Vitamins A & D Oint UD Foilpak TOP PRN (06:15)
[2018-02-19 06:34] LABS: BASO % 0.2 % (0.0-2.0); EOS # 0.1 K/uL (0.0-0.7); EOS % 1.3 % (0.0-4.0); HEMOGLOBIN 9.8 g/dL (12.0-18.0); LYMPH # 1.4 K/uL (1.0-4.3); LYMPH % 14.1 % (20.0-40.0); MEAN CORPUSCULAR HEMOGLOBIN 31.7 pg (27.0-31.0); MEAN CORPUSCULAR HGB CONC 34.4 g/dL (33.0-37.0); MEAN PLATELET VOLUME 11.3 fL (7.2-11.7); MONO # 0.4 K/uL (0.0-0.8); MONO % 3.9 % (0.0-10.0); NEUT # 7.9 K/uL (1.8-7.0); NEUT % 80.5 % (50.0-75.0); RBC 3.09 Mil/uL (4.40-5.90); RED CELL DISTRIBUTION WIDTH 14.3 % (11.5-14.5); WHITE BLOOD COUNT 9.8 K/uL (4.8-10.8)
[2018-02-19 06:50] LABS: ALB/GLOB RATIO 1.1 (1.0-2.1); ALBUMIN 2.4 g/dL (3.5-5.0); CALCIUM 8.2 mg/dl (8.6-10.4)
--- NOTE | 2018-02-19 09:10 | CP.PCM.PN ---
Subjective - Date & Time of Evaluation Date of Evaluation: 02/19/18 Time of Evaluation: 09:07 - Subjective Subjective: s/p dialysis 02/18 for clearances hypernatremia, metabolic acidosis improved UO > 800ml remains contracted, nonverbal- cannot obtain ROS not eating Objective - Vital Signs/Intake and Output Vital Signs (last 24 hours): Temp Pulse Resp BP Pulse Ox 98 F 75 17 100/45 L 94 L 02/19/18 04:00 02/19/18 07:37 02/19/18 07:37 02/19/18 07:37 02/19/18 07:37 Intake and Output: 02/19/18 02/19/18 06:59 18:59 Intake Total 1300 300 Output Total 500 30 Balance 800 270 - Medications Medications: Current Medications Carbidopa/Levodopa (Sinemet) 1 tab PO Q8 [facility] Last Admin: 02/19/18 06:13 Dose: Not Given Heparin Sodium (Porcine) (Heparin) 5,000 units SC Q8 [facility] Last Admin: 02/19/18 06:13 Dose: 5,000 units Piperacillin Sod/Tazobactam (Sod 2.25 gm/ Sodium Chloride) 100 mls @ 200 mls/ hr IVPB Q8H [facility] PRN Reason: Protocol Last Admin: 02/19/18 07:48 Dose: 200 mls/hr Norepinephrine Bitartrate 4 mg (/ Sodium Chloride) 254 mls @ 19.05 mls/hr IV .[id number] PRN; Protocol; 5 MCG/MIN PRN Reason: TITRATE PER MD ORDER Sodium Bicarbonate 50 meq/ (Dextrose) 1,050 mls @ 100 mls/hr IV .[id number] [facility] Last Admin: 02/19/18 03:52 Dose: 100 mls/hr Metoprolol Tartrate (Lopressor) 25 mg PO DAILY [facility] Last Admin: 02/18/18 09:17 Dose: Not Given Pantoprazole Sodium (Protonix Inj) 40 mg IVP DAILY [facility] Last Admin: 02/18/18 09:19 Dose: 40 mg Vitamin A (Vitamin A & D Oint Ud Foilpak) 2 ea TOP Q8 PRN PRN Reason: Dry mouth Last Admin: 02/19/18 06:15 Dose: 2 ea - Labs Labs: 02/19/18 06:24 07/19/18 06:22 PT 16.9 SECONDS (9.7-12.2) H 02/17/18 13:35 INR 1.5 02/17/18 13:35 APTT 38 SECONDS (21-34) H 02/17/18 13:35 - Constitutional Appears: Confused, Cachectic, Chronically Ill - Head Exam Head Exam: ATRAUMATIC, NORMAL INSPECTION - Eye Exam Eye Exam: EOMI, Normal appearance - Neck Exam Neck Exam: Normal Inspection. absent: Tenderness - Respiratory Exam Respiratory Exam: Clear to Ausculation Bilateral, NORMAL BREATHING PATTERN - Cardiovascular Exam Cardiovascular Exam: REGULAR RHYTHM, +S1 - GI/Abdominal Exam GI & Abdominal Exam: Soft. absent: Tenderness - Extremities Exam Extremities Exam: Normal Inspection. absent: Tenderness - Neurological Exam Neurological Exam: Altered - Skin Skin Exam: Dry, Warm Assessment and Plan (1) Acute kidney failure Status: Acute (2) Hypernatremia Status: Acute (3) Severe dehydration Status: Acute (4) Parkinsons disease Status: Acute - Assessment and Plan (Free Text) Plan: Continue bicarb gtt ? 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
--- NOTE | 2018-02-19 09:21 | CP.PCM.PN ---
Subjective - Date & Time of Evaluation Date of Evaluation: 02/19/18 Time of Evaluation: 19:00 - Subjective Subjective: Pt seen & examined at bedside, pt is still on Hd, Na is getting better, BUN/ Creatinine coming down, not arousable, mostly asleep Objective - Vital Signs/Intake and Output Vital Signs (last 24 hours): Temp Pulse Resp BP Pulse Ox 98 F 75 17 100/45 L 94 L 02/19/18 04:00 02/19/18 07:37 02/19/18 07:37 02/19/18 07:37 02/19/18 07:37 Intake and Output: 02/19/18 02/19/18 06:59 18:59 Intake Total 1300 300 Output Total 500 30 Balance 800 270 - Medications Medications: Current Medications Carbidopa/Levodopa (Sinemet) 1 tab PO Q8 [facility] Last Admin: 02/19/18 06:13 Dose: Not Given Heparin Sodium (Porcine) (Heparin) 5,000 units SC Q8 [facility] Last Admin: 02/19/18 06:13 Dose: 5,000 units Piperacillin Sod/Tazobactam (Sod 2.25 gm/ Sodium Chloride) 100 mls @ 200 mls/ hr IVPB Q8H [facility] PRN Reason: Protocol Last Admin: 02/19/18 07:48 Dose: 200 mls/hr Norepinephrine Bitartrate 4 mg (/ Sodium Chloride) 254 mls @ 19.05 mls/hr IV .[id number] PRN; Protocol; 5 MCG/MIN PRN Reason: TITRATE PER MD ORDER Sodium Bicarbonate 50 meq/ (Dextrose) 1,050 mls @ 100 mls/hr IV .[id number] [facility] Last Admin: 02/19/18 03:52 Dose: 100 mls/hr Metoprolol Tartrate (Lopressor) 25 mg PO DAILY [facility] Last Admin: 02/18/18 09:17 Dose: Not Given Pantoprazole Sodium (Protonix Inj) 40 mg IVP DAILY [facility] Last Admin: 02/18/18 09:19 Dose: 40 mg Vitamin A (Vitamin A & D Oint Ud Foilpak) 2 ea TOP Q8 PRN PRN Reason: Dry mouth Last Admin: 02/19/18 06:15 Dose: 2 ea - Labs Labs: 02/19/18 06:24 02/19/18 06:22 PT 16.9 SECONDS (9.7-12.2) H 02/17/18 13:35 INR 1.5 02/17/18 13:35 APTT 38 SECONDS (21-34) H 02/17/18 13:35 - Constitutional Appears: Chronically Ill - Head Exam Head Exam: ATRAUMATIC, NORMAL INSPECTION, NORMOCEPHALIC - Eye Exam Eye Exam: EOMI, Normal appearance, PERRL Pupil Exam: NORMAL ACCOMODATION, PERRL - ENT Exam ENT Exam: Mucous Membranes Moist, Normal Exam - Respiratory Exam Respiratory Exam: Clear to Ausculation Bilateral, NORMAL BREATHING PATTERN - Cardiovascular Exam Cardiovascular Exam: REGULAR RHYTHM, +S1, +S2. absent: Murmur - GI/Abdominal Exam GI & Abdominal Exam: Soft, Normal Bowel Sounds. absent: Tenderness Assessment and Plan (1) Acute kidney failure Status: Acute (2) Electrolyte imbalance Status: Acute (3) Hypernatremia Status: Acute (4) Severe dehydration Status: Acute (5) Alzheimer disease Status: Acute (6) Dehydration Status: Acute (7) Parkinsons disease Status: Acute
--- NOTE | 2018-02-19 09:21 | CP.PCM.PN ---
Subjective - Date & Time of Evaluation Date of Evaluation: 02/18/18 Time of Evaluation: 16:00 - Subjective Subjective: Pt seen and examined on hemodialysis hypernatremia, metabolic acidosis improved remains contracted, nonverbal- cannot obtain ROS not eating Objective - Vital Signs/Intake and Output Vital Signs (last 24 hours): Temp Pulse Resp BP Pulse Ox 98 F 75 17 100/45 L 94 L 02/19/18 04:00 02/19/18 07:37 02/19/18 07:37 02/19/18 07:37 02/19/18 07:37 Intake and Output: 02/19/18 02/19/18 06:59 18:59 Intake Total 1300 300 Output Total 500 30 Balance 800 270 - Medications Medications: Current Medications Carbidopa/Levodopa (Sinemet) 1 tab PO Q8 [facility] Last Admin: 02/19/18 06:13 Dose: Not Given Heparin Sodium (Porcine) (Heparin) 5,000 units SC Q8 [facility] Last Admin: 02/19/18 06:13 Dose: 5,000 units Piperacillin Sod/Tazobactam (Sod 2.25 gm/ Sodium Chloride) 100 mls @ 200 mls/ hr IVPB Q8H [facility] PRN Reason: Protocol Last Admin: 02/19/18 07:48 Dose: 200 mls/hr Norepinephrine Bitartrate 4 mg (/ Sodium Chloride) 254 mls @ 19.05 mls/hr IV .[id number] PRN; Protocol; 5 MCG/MIN PRN Reason: TITRATE PER MD ORDER Sodium Bicarbonate 50 meq/ (Dextrose) 1,050 mls @ 100 mls/hr IV .[id number] [facility] Last Admin: 02/19/18 03:52 Dose: 100 mls/hr Metoprolol Tartrate (Lopressor) 25 mg PO DAILY [facility] Last Admin: 02/18/18 09:17 Dose: Not Given Pantoprazole Sodium (Protonix Inj) 40 mg IVP DAILY [facility] Last Admin: 02/18/18 09:19 Dose: 40 mg Vitamin A (Vitamin A & D Oint Ud Foilpak) 2 ea TOP Q8 PRN PRN Reason: Dry mouth Last Admin: 02/19/18 06:15 Dose: 2 ea - Labs Labs: 02/19/18 06:24 02/19/18 06:22 PT 16.9 SECONDS (9.7-12.2) H 02/17/18 13:35 INR 1.5 02/17/18 13:35 APTT 38 SECONDS (21-34) H 02/17/18 13:35
--- NOTE | 2018-02-19 10:47 | RAD ---
Date of service: 02/18/2018 PROCEDURE: CHEST RADIOGRAPH, 1 VIEW HISTORY: dialysis catheter insertion COMPARISON: 02/16/2018. FINDINGS: LUNGS: Basilar infiltrates. PLEURA: Bilateral pleural effusions unchanged. CARDIOVASCULAR: Cardiomegaly. OSSEOUS STRUCTURES: No significant abnormalities. VISUALIZED UPPER ABDOMEN: Normal. OTHER FINDINGS: None. IMPRESSION: Satisfactory position of dialysis catheter right internal jugular approach. The tip is obscured by overlying support apparatus but likely resides within 3 cm superiorly of the cavoatrial junction. No postprocedure pneumothorax.
--- NOTE | 2018-02-19 18:40 | CP.CCUPN ---
<Tuyet Bauman - Last Filed: 02/19/18 18:40> CCU Subjective - Physician Review Subjective (Free Text): 02/18/18 17:42 87 yo M w/ PMHx of HTN, pacemaker, parkinson's, renal insufficiency recent hospitalization for poor intake and dehydration, sent from [place] for evaluation of poor intake and lethargy, abnormal labs showing hypernatremia, hyperkalemia, metabolic acidosis, leukocytosis. Admitted to ICU for further management of worsening status. 02/19/18 18:33 CCU Objective - Vital Signs / Intake & Output Vital Signs (Last 4 hours): Vital Signs Pulse Resp BP Pulse Ox 02/19/18 17:36 79 17 104/59 L 95 02/19/18 16:36 91 H 18 113/53 L 94 L 02/19/18 15:36 75 19 100/50 L 94 L 02/19/18 14:36 91 H 17 101/59 L 94 L Intake and Output (Last 8hrs): Intake & Output 02/19/18 02/19/18 02/19/18 06:59 14:59 22:59 Intake Total 900 900 300 Output Total 350 390 180 Balance 550 510 120 Weight 118 lb 9.739 oz Intake: Intake, IV Amount 900 900 300 Left Upper arm 800 800 300 Right Antecubital 100 100 Output: Urine 350 390 180 Urethral (Storey) 350 390 180 Other: # Bowel Movements 1 1 - Physical Exam Head: Positive for: Atraumatic, Normocephalic Mouth: Positive for: Dry (mouth severely dry and dirty) Respiratory/Chest: Positive for: Clear to Auscultation. Negative for: Respiratory Distress, Accessory Muscle Use, Tachypneic Cardiovascular: Positive for: Regular Rate and Rhythm, Normal S1, S2. Negative for: Murmurs, Tachycardic Abdomen: Positive for: Normal Bowel Sounds. Negative for: Distention Upper Extremity: Positive for: Normal Inspection Lower Extremity: Positive for: Normal Inspection Neurological: Negative for: GCS=15 Skin: Positive for: Dry Psychiatric: Negative for: Oriented x 3 - Medications Active Medications: Active Medications Generic Name Dose Route Start Last Admin Trade Name Freq PRN Reason Stop Dose Admin Carbidopa/Levodopa 1 tab 02/17/18 06:00 02/19/18 13:11 Sinemet PO Not Given Q8 [facility] Heparin Sodium (Porcine) 5,000 units 02/17/18 06:00 02/19/18 13:59 Heparin SC 5,000 units Q8 [facility] Administration Piperacillin Sod/Tazobactam 100 mls @ 200 mls/hr 02/17/18 00:30 02/19/18 17: 30 Sod 2.25 gm/ Sodium Chloride IVPB 200 mls/hr Q8H [facility] Administration Protocol Norepinephrine Bitartrate 4 mg 254 mls @ 19.05 mls/hr 02/17/18 17:16 / Sodium Chloride IV .[id number] PRN TITRATE PER MD ORDER Protocol 5 MCG/MIN Sodium Bicarbonate 50 meq/ 1,050 mls @ 100 mls/hr 02/17/18 17:30 02/19/18 14: 02 Dextrose IV 100 mls/hr .[id number] [facility] Administration Metoprolol Tartrate 25 mg 02/17/18 10:00 02/19/18 10:00 Lopressor PO Not Given DAILY [facility] Pantoprazole Sodium 40 mg 02/17/18 10:00 02/19/18 10:00 Protonix Inj IVP 40 mg DAILY [facility] Administration Vitamin A 2 ea 02/17/18 10:03 02/19/18 06:15 Vitamin A & D Oint Ud Foilpak TOP 2 ea Q8 PRN Administration Dry mouth - Patient Studies Lab Studies: Microbiology Studies 02/17/18 03:40 Blood Culture - Preliminary Blood NO GROWTH AFTER 48 HOURS 02/17/18 03:40 Blood Culture - Preliminary Blood NO GROWTH AFTER 48 HOURS Lab Studies 02/19/18 02/19/18 02/18/18 Range/Units 06:24 06:22 18:51 WBC 9.8 (4.8-10.8) K/uL RBC 3.09 L (4.40-5.90) Mil/uL Hgb 9.8 L (12.0-18.0) g/dL Hct 28.4 L (35.0-51.0) % MCV 92.0 D (80.0-94.0) fL MCH 31.7 H (27.0-31.0) pg MCHC 34.4 (33.0-37.0) g/dL RDW 14.3 (11.5-14.5) % Plt Count 121 L (130-400) K/uL MPV 11.3 (7.2-11.7) fL Neut % (Auto) 80.5 H (50.0-75.0) % Lymph % (Auto) 14.1 L (20.0-40.0) % [place] % (Auto) 3.9 (0.0-10.0) % Eos % (Auto) 1.3 (0.0-4.0) % Baso % (Auto) 0.2 (0.0-2.0) % Neut # (Auto) 7.9 H (1.8-7.0) K/uL Lymph # (Auto) 1.4 (1.0-4.3) K/uL [place] # (Auto) 0.4 (0.0-0.8) K/uL Eos # (Auto) 0.1 (0.0-0.7) K/uL Baso # (Auto) 0.0 (0.0-0.2) K/uL Sodium 149 H (132-148) mmol/L Potassium 3.7 (3.6-5.2) mmol/L Chloride 112 H (98-107) mmol/L Carbon Dioxide 22 (22-30) mmol/L Anion Gap 19 (10-20) BUN 120 H* D (9-20) mg/dL Creatinine 4.4 H (0.8-1.5) mg/dL Est GFR ( Amer) 16 Est GFR (Non-Af Amer) 13 Random Glucose 93 (75-110) mg/dL Calcium 8.2 L (8.6-10.4) mg/dl Phosphorus 4.1 (2.5-4.5) mg/dL Magnesium 1.8 (1.6-2.3) mg/dL Total Bilirubin 0.8 (0.2-1.3) mg/dL AST 58 (17-59) U/L ALT 27 (21-72) U/L Alkaline Phosphatase 88 (38-126) U/L Total Protein 4.6 L (6.3-8.3) g/dL Albumin 2.4 L (3.5-5.0) g/dL Globulin 2.1 L (2.2-3.9) gm/dL Albumin/Globulin Ratio 1.1 (1.0-2.1) Hep Bs Antigen (NEGATIVE) Hep Bs Antibody Indeterminate (NEGATIVE) Hepatitis C Antibody (NEGATIVE) 02/18/18 Range/Units 18:51 WBC (4.8-10.8) K/uL RBC (4.40-5.90) Mil/uL Hgb (12.0-18.0) g/dL Hct (35.0-51.0) % MCV (80.0-94.0) fL MCH (27.0-31.0) pg MCHC (33.0-37.0) g/dL RDW (11.5-14.5) % Plt Count (130-400) K/uL MPV (7.2-11.7) fL Neut % (Auto) (50.0-75.0) % Lymph % (Auto) (20.0-40.0) % [place] % (Auto) (0.0-10.0) % Eos % (Auto) (0.0-4.0) % Baso % (Auto) (0.0-2.0) % Neut # (Auto) (1.8-7.0) K/uL Lymph # (Auto) (1.0-4.3) K/uL [place] # (Auto) (0.0-0.8) K/uL Eos # (Auto) (0.0-0.7) K/uL Baso # (Auto) (0.0-0.2) K/uL Sodium (132-148) mmol/L Potassium (3.6-5.2) mmol/L Chloride (98-107) mmol/L Carbon Dioxide (22-30) mmol/L Anion Gap (10-20) BUN (9-20) mg/dL Creatinine (0.8-1.5) mg/dL Est GFR ( Amer) Est GFR (Non-Af Amer) Random Glucose (75-110) mg/dL Calcium (8.6-10.4) mg/dl Phosphorus (2.5-4.5) mg/dL Magnesium (1.6-2.3) mg/dL Total Bilirubin (0.2-1.3) mg/dL AST (17-59) U/L ALT (21-72) U/L Alkaline Phosphatase (38-126) U/L Total Protein (6.3-8.3) g/dL Albumin (3.5-5.0) g/dL Globulin (2.2-3.9) gm/dL Albumin/Globulin Ratio (1.0-2.1) Hep Bs Antigen Negative (NEGATIVE) Hep Bs Antibody (NEGATIVE) Hepatitis C Antibody Negative (NEGATIVE) Laboratory Results - last 24 hr 02/18/18 02/18/18 02/19/18 18:51 18:51 06:22 WBC RBC Hgb Hct MCV MCH MCHC RDW Plt Count MPV Neut % (Auto) Lymph % (Auto) [place] % (Auto) Eos % (Auto) Baso % (Auto) Neut # (Auto) Lymph # (Auto) [place] # (Auto) Eos # (Auto) Baso # (Auto) Sodium 149 H Potassium 3.7 Chloride 112 H Carbon Dioxide 22 Anion Gap 19 BUN 120 H* D Creatinine 4.4 H Est GFR ( Amer) 16 Est GFR (Non-Af Amer) 13 Random Glucose 93 Calcium 8.2 L Phosphorus 4.1 Magnesium 1.8 Total Bilirubin 0.8 AST 58 ALT 27 Alkaline Phosphatase 88 Total Protein 4.6 L Albumin 2.4 L Globulin 2.1 L Albumin/Globulin Ratio 1.1 Hep Bs Antigen Negative Hep Bs Antibody Indeterminate Hepatitis C Antibody Negative 02/19/18 06:24 WBC 9.8 RBC 3.09 L Hgb 9.8 L Hct 28.4 L MCV 92.0 D MCH 31.7 H MCHC 34.4 RDW 14.3 Plt Count 121 L MPV 11.3 Neut % (Auto) 80.5 H Lymph % (Auto) 14.1 L [place] % (Auto) 3.9 Eos % (Auto) 1.3 Baso % (Auto) 0.2 Neut # (Auto) 7.9 H Lymph # (Auto) 1.4 [place] # (Auto) 0.4 Eos # (Auto) 0.1 Baso # (Auto) 0.0 Sodium Potassium Chloride Carbon Dioxide Anion Gap BUN Creatinine Est GFR ( Amer) Est GFR (Non-Af Amer) Random Glucose Calcium Phosphorus Magnesium Total Bilirubin AST ALT Alkaline Phosphatase Total Protein Albumin Globulin Albumin/Globulin Ratio Hep Bs Antigen Hep Bs Antibody Hepatitis C Antibody Review of Systems - Review of Systems Systems not reviewed;Unavailable: Altered Mental Status Critical Care Progress Note - Nutrition Nutrition: Nutrition Category Date Time Status NPO Diet [DIET] Diets 02/19/18 Lunch Active Assessment/Plan - Assessment and Plan (Free Text) Plan: 87 yo M admitted to ICU for hyperkalemia, hypernatremia, metabolic acidosis, leukocytosis 2/2 to severe dehydration and poor intake 1. Hypernatremia -Na-149 today -D5w/bicarb @100/hr 2. Hyperkalemia -K-3.7 today -s/p HD 3. Metabolic acidosis -1 amp sodium bicarb -anion gap 15 -ABGs 4. Leukocytosis -WBC 9.8 today, improving -zosyn 2.25 q8 -f/u blood cx 5. CKD -Bun/Cr-120/4.4 -HD 02/18 -renal diet -nephro consult Dr. De Los Santos 6. HTN -metoprolol 25mg 7. Parkinson's -Carbi-levo 8. Dispo -Hospice eval -discussed POLST options w/ pt's son Richard Ramos. -Pt is DNR/DNI Ppx -protonix 40mg heparin 5000 sc <Kiet Weiss - Last Filed: 02/20/18 07:44> CCU Objective - Vital Signs / Intake & Output Vital Signs (Last 4 hours): Vital Signs Temp Pulse Ox 02/20/18 04:00 98.7 F 96 Intake and Output (Last 8hrs): Intake & Output 02/19/18 02/20/18 02/20/18 22:59 06:59 14:59 Intake Total 1200 800 100 Output Total 780 401 Balance 420 399 100 Weight 124 lb Intake: Intake, IV Amount 1200 800 100 Left Forearm 800 800 100 Left Upper arm 300 Right Forearm 100 Output: Urine 780 400 Urethral (Storey) 780 400 Stool 1 Other: # Bowel Movements 1 - Medications Active Medications: Active Medications Generic Name Dose Route Start Last Admin Trade Name Freq PRN Reason Stop Dose Admin Carbidopa/Levodopa 1 tab 02/17/18 06:00 02/20/18 05:57 Sinemet PO Not Given Q8 [facility] Piperacillin Sod/Tazobactam 100 mls @ 200 mls/hr 02/17/18 00:30 02/19/18 23: 48 Sod 2.25 gm/ Sodium Chloride IVPB 200 mls/hr Q8H [facility] Administration Protocol Norepinephrine Bitartrate 4 mg 254 mls @ 19.05 mls/hr 02/17/18 17:16 / Sodium Chloride IV .[id number] PRN TITRATE PER MD ORDER Protocol 5 MCG/MIN Sodium Bicarbonate 50 meq/ 1,050 mls @ 100 mls/hr 02/17/18 17:30 02/20/18 01: 10 Dextrose IV 100 mls/hr .[id number] [facility] Administration Metoprolol Tartrate 25 mg 02/17/18 10:00 02/19/18 10:00 Lopressor PO Not Given DAILY [facility] Pantoprazole Sodium 40 mg 02/17/18 10:00 02/19/18 10:00 Protonix Inj IVP 40 mg DAILY [facility] Administration Vitamin A 2 ea 02/17/18 10:03 02/19/18 06:15 Vitamin A & D Oint Ud Foilpak TOP 2 ea Q8 PRN Administration Dry mouth - Patient Studies Lab Studies: Microbiology Studies 02/17/18 03:40 Blood Culture - Preliminary Blood NO GROWTH AFTER 3 DAYS 02/17/18 03:40 Blood Culture - Preliminary Blood NO GROWTH AFTER 3 DAYS Lab Studies 02/20/18 02/20/18 Range/Units 05:51 05:51 WBC 8.2 (4.8-10.8) K/uL RBC 2.93 L (4.40-5.90) Mil/uL Hgb 9.1 L (12.0-18.0) g/dL Hct 27.1 L (35.0-51.0) % MCV 92.3 (80.0-94.0) fL MCH 30.9 (27.0-31.0) pg MCHC 33.5 (33.0-37.0) g/dL RDW 14.1 (11.5-14.5) % Plt Count 117 L (130-400) K/uL MPV 11.2 (7.2-11.7) fL Neut % (Auto) 81.0 H (50.0-75.0) % Lymph % (Auto) 12.8 L (20.0-40.0) % [place] % (Auto) 4.4 (0.0-10.0) % Eos % (Auto) 1.6 (0.0-4.0) % Baso % (Auto) 0.2 (0.0-2.0) % Neut # (Auto) 6.7 (1.8-7.0) K/uL Lymph # (Auto) 1.1 (1.0-4.3) K/uL [place] # (Auto) 0.4 (0.0-0.8) K/uL Eos # (Auto) 0.1 (0.0-0.7) K/uL Baso # (Auto) 0.0 (0.0-0.2) K/uL Sodium 144 (132-148) mmol/L Potassium 3.2 L (3.6-5.2) mmol/L Chloride 106 (98-107) mmol/L Carbon Dioxide 23 (22-30) mmol/L Anion Gap 18 (10-20) BUN 119 H* (9-20) mg/dL Creatinine 5.0 H (0.8-1.5) mg/dL Est GFR ( Amer) 13 Est GFR (Non-Af Amer) 11 Random Glucose 106 (75-110) mg/dL Calcium 7.9 L (8.6-10.4) mg/dl Phosphorus 5.9 H (2.5-4.5) mg/dL Magnesium 1.8 (1.6-2.3) mg/dL Total Bilirubin 0.7 (0.2-1.3) mg/dL AST 49 (17-59) U/L ALT 25 (21-72) U/L Alkaline Phosphatase 83 (38-126) U/L Total Protein 4.4 L (6.3-8.3) g/dL Albumin 2.2 L (3.5-5.0) g/dL Globulin 2.1 L (2.2-3.9) gm/dL Albumin/Globulin Ratio 1.1 (1.0-2.1) Laboratory Results - last 24 hr 02/20/18 02/20/18 05:51 05:51 WBC 8.2 RBC 2.93 L Hgb 9.1 L Hct 27.1 L MCV 92.3 MCH 30.9 MCHC 33.5 RDW 14.1 Plt Count 117 L MPV 11.2 Neut % (Auto) 81.0 H Lymph % (Auto) 12.8 L [place] % (Auto) 4.4 Eos % (Auto) 1.6 Baso % (Auto) 0.2 Neut # (Auto) 6.7 Lymph # (Auto) 1.1 [place] # (Auto) 0.4 Eos # (Auto) 0.1 Baso # (Auto) 0.0 Sodium 144 Potassium 3.2 L Chloride 106 Carbon Dioxide 23 Anion Gap 18 BUN 119 H* Creatinine 5.0 H Est GFR ( Amer) 13 Est GFR (Non-Af Amer) 11 Random Glucose 106 Calcium 7.9 L Phosphorus 5.9 H Magnesium 1.8 Total Bilirubin 0.7 AST 49 ALT 25 Alkaline Phosphatase 83 Total Protein 4.4 L Albumin 2.2 L Globulin 2.1 L Albumin/Globulin Ratio 1.1 Critical Care Progress Note - Nutrition Nutrition: Nutrition Category Date Time Status NPO Diet [DIET] Diets 02/19/18 Lunch Active Attending/Attestation - Attestation I have personally seen and examined this patient.: Yes I have fully participated in the care of the patient.: Yes I have reviewed all pertinent clinical information: Yes Notes (Text): 02/19/18 07:42 I have seen and examined the patient. Medical records, lab studies, and imaging were reviewed by me and a management plan was formulated on multidisciplinary rounds with resident Dr. Bauman. I agree with their documented assessment and plan. Discussed with patient's son about goals of care. He agreed to DNR/DNI. He is unsure whether to stop dialysis. Discussed with Dr. De Los Santos, Nephrology, who agrees he would be a poor penit[facility]iary candidate for dialysis. We discussed the possible need for hospice and he seems to be amenable to considering this. Palliative Care to further this discussion. The patient is end stage severe Parkinson's dementia with no hope for recovery. Critical Care Time 35 minutes. Multi-disciplinary rounds were performed with house staff, nursing, speech therapy, respiratory therapy, pharmacy and nutrition with integrated input from the primary team/attending and other consulting services. The documented time is cumulative and includes review of patient data/exams/labs/chart review and examination of the patient on rounds and throughout the day; time is exclusive of any procedures or teaching time.
[2018-02-19 19:43] VITALS: O2SAT 96
--- NOTE | 2018-02-19 23:45 | CARD ---
APPROVED REPORT Date of service: 02/17/2018 EXAM: LIMITED Two-dimensional and M-mode echocardiogram with Doppler and color Doppler. Other Information Quality : Technically LimitedRhythm : Surgery/Intervention Pacemaker: RISK FACTORS Hypertension Hyperlipidemia 2D DIMENSIONS IVSd1.3 (0.7-1.1cm)LVDd3.7 (3.9-5.9cm) PWd1.0 (0.7-1.1cm)LVDs2.5 (2.5-4.0cm) FS (%) 31.9 %LVEF (%)60.9 (>50%) M-Mode DIMENSIONS Left Atrium (MM)4.23 (2.5-4.0cm)IVSd1.09 (0.7-1.1cm) Aortic Root3.58 (2.2-3.7cm)LVDd4.18 (4.0-5.6cm) Aortic Cusp Exc.1.76 (1.5-2.0cm)PWd0.81 (0.7-1.1cm) FS (%) 40 %LVDs2.52 (2.0-3.8cm) LVEF (%)71 (>50%) Mitral Valve MV E Esywrvuk13.6cm/sMV A Bxdlorau77.6cm/sE/A ratio1.6 TDI E/Lateral E'0.0E/Medial E'0.0 Tricuspid Valve TR Peak [id number]/sTR Peak Gr.[id number] LEFT VENTRICLE The left ventricle is normal size. There is mild concentric left ventricular hypertrophy. The left ventricular function is normal. The left ventricular ejection fraction is within the normal range. There is normal LV segmental wall motion. The left ventricular diastolic function is normal. RIGHT VENTRICLE The right ventricle is normal size. ATRIA The left atrium is mildly dilated. The right atrium size is normal. AORTIC VALVE The aortic valve is normal in structure. No aortic regurgitation is present. MITRAL VALVE Mitral regurgitation is mild. TRICUSPID VALVE There is mild to moderate tricuspid regurgitation. <Conclusion> Normal LV systolic function. LVH. Dilated LA. Mild MR. Mild to moderate TR.
--- NOTE | 2018-02-20 00:28 | PQF ---
PROVIDER RESPONSE TEXT: Metabolic Encephalopathy in the setting of ANNA sec t to Severe Dehydration treated with IVF Hydration and Hemodialysis. REVIEWER QUERY TEXT: Clarification of Clinical Diagnostic Findings Metabolic Encephalopathy in the setting of ANNA sec t to Severe Dehydration treated with IVF Hydration and Hemodialysis. --other Explanation -- Unable to Determine . Please clarify documentation or clinical relevance for the clinical / diagnostic findings or whether those are insignificant or unable to be further specified. The patient's Clinical Indicators include: Clinical Findings: AMS , Lethargy, Severe Dehydration with elevated Bun/crea 271 / 7.7 , GFR= 8ml , Na= 169, 165 Treatment : IVF Hydration, Hemodialysis Risk factors: Severe Dehydration, sec to poor intake. 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 -Other Explanation -Unable to Determine Please clarify documentation or clinical relevance for the clinical / diagnostic findings or whether those are insignificant or unable to be further specified. The patient's Clinical Indicators include: Clinical Findings: Severe Dehydration, Severe Azotemia, Hypernatremia w/ Na= 169, Hyperkalemia w/ K= 5.9, Metabolic acidosis , Bun/Crea= 271/7.7 GFR=8 ml/min . Treatment : Hemodialysis , Insertion of Dialysis cath . Risk factor : ANNA on CKD Stage 4 , Severe dehydration. Query created by: Leslie Lynn on 02/19/2018 6:08 PM Electronically signed by: Adrian Parekh MD 02/20/2018 12:25 AM
[2018-02-20] MEDS: Sodium Bicarbonate 8.4% 50 MEQ in Dextrose 5% In Water 1,000 ML IV SCH ×2 (01:10→09:28)
[2018-02-20 05:57] LABS: BASO % 0.2 % (0.0-2.0); EOS # 0.1 K/uL (0.0-0.7); EOS % 1.6 % (0.0-4.0); HEMOGLOBIN 9.1 g/dL (12.0-18.0); LYMPH # 1.1 K/uL (1.0-4.3); LYMPH % 12.8 % (20.0-40.0); MEAN CELL VOLUME 92.3 fL (80.0-94.0); MEAN CORPUSCULAR HEMOGLOBIN 30.9 pg (27.0-31.0); MEAN CORPUSCULAR HGB CONC 33.5 g/dL (33.0-37.0); MEAN PLATELET VOLUME 11.2 fL (7.2-11.7); MONO # 0.4 K/uL (0.0-0.8); MONO % 4.4 % (0.0-10.0); NEUT # 6.7 K/uL (1.8-7.0); RBC 2.93 Mil/uL (4.40-5.90); RED CELL DISTRIBUTION WIDTH 14.1 % (11.5-14.5); WHITE BLOOD COUNT 8.2 K/uL (4.8-10.8)
[2018-02-20] MEDS: Carbidopa/Levodopa 25/250 PO SCH ×3 (05:57→22:15)
[2018-02-20 06:36] LABS: ALB/GLOB RATIO 1.1 (1.0-2.1); ALBUMIN 2.2 g/dL (3.5-5.0); CALCIUM 7.9 mg/dl (8.6-10.4)
[2018-02-20] MEDS: Piperacillin/Tazobact 2.25 GM in Sodium Chloride 100 ML IVPB SCH ×2 (09:27→23:57)
--- NOTE | 2018-02-20 09:55 | CP.PCM.PN ---
Subjective - Date & Time of Evaluation Date of Evaluation: 02/20/18 Time of Evaluation: 09:51 - Subjective Subjective: Patient examined in bed, lethargic, unable to fallow simple commends, looking very ill. patient keeps his eyes closed, reacts to tactile stimuli but does not open his eyes. BUN and Overhead Crane Inspector still high. Doctor Kiet spoke to family who agreed to DNR/DNI and with Hospice. Objective - Vital Signs/Intake and Output Vital Signs (last 24 hours): Temp Pulse Resp BP Pulse Ox 98.7 F 76 16 102/65 96 02/20/18 04:00 02/20/18 01:00 02/19/18 21:00 02/20/18 09:27 02/20/18 04:00 Intake and Output: 02/20/18 02/20/18 06:59 18:59 Intake Total 1200 100 Output Total 401 Balance 799 100 - Medications Medications: Current Medications Carbidopa/Levodopa (Sinemet) 1 tab PO Q8 [facility] Last Admin: 02/20/18 05:57 Dose: Not Given Piperacillin Sod/Tazobactam (Sod 2.25 gm/ Sodium Chloride) 100 mls @ 200 mls/ hr IVPB Q8H [facility] PRN Reason: Protocol Last Admin: 02/20/18 09:27 Dose: 200 mls/hr Norepinephrine Bitartrate 4 mg (/ Sodium Chloride) 254 mls @ 19.05 mls/hr IV .[id number] PRN; Protocol; 5 MCG/MIN PRN Reason: TITRATE PER MD ORDER Sodium Bicarbonate 50 meq/ (Dextrose) 1,050 mls @ 100 mls/hr IV .[id number] [facility] Last Admin: 02/20/18 09:28 Dose: Not Given Metoprolol Tartrate (Lopressor) 25 mg PO DAILY [facility] Last Admin: 02/20/18 09:27 Dose: Not Given Pantoprazole Sodium (Protonix Inj) 40 mg IVP DAILY [facility] Last Admin: 02/20/18 09:27 Dose: 40 mg Vitamin A (Vitamin A & D Oint Ud Foilpak) 2 ea TOP Q8 PRN PRN Reason: Dry mouth Last Admin: 02/19/18 06:15 Dose: 2 ea - Labs Labs: 02/20/18 05:51 02/20/18 05:51 PT 16.9 SECONDS (9.7-12.2) H 02/17/18 13:35 INR 1.5 02/17/18 13:35 APTT 38 SECONDS (21-34) H 02/17/18 13:35 - Constitutional Appears: In Acute Distress, Chronically Ill - Eye Exam Eye Exam: EOMI, Normal appearance, PERRL Pupil Exam: NORMAL ACCOMODATION, PERRL - ENT Exam ENT Exam: Mucous Membranes Moist, Normal Exam - Neck Exam Neck Exam: Normal Inspection - Respiratory Exam Respiratory Exam: Decreased Breath Sounds, NORMAL BREATHING PATTERN - Cardiovascular Exam Cardiovascular Exam: Tachycardia, Irregular Rhythm - GI/Abdominal Exam GI & Abdominal Exam: Soft, Normal Bowel Sounds - Rectal Exam Rectal Exam: Deferred - Exam Additional comments: Storey at bed side, S/P one time HD - Extremities Exam Extremities Exam: Normal Inspection - Back Exam Back Exam: NORMAL INSPECTION - Neurological Exam Neurological Exam: Alert, Altered Neuro motor strength exam: Left Upper Extremity: 2/1, Right Upper Extremity: 2/1 , Left Lower Extremity: 2/1, Right Lower Extremity: 2/1 - Psychiatric Exam Psychiatric exam: Flat Affect - Skin Skin Exam: Pallor Assessment and Plan - Assessment and Plan (Free Text) Assessment: Palliative progress note Patient looks chronically ill and very weak. Na , BUn, Overhead Crane Inspector still abnormal. Patient is S/P one time HD. Further HD is not recommended due to patient's advanced age and limited life expectancy. HR irregular 56. BP 83/53. Family decided on DNR/DNI. Per Doctor Kiet family agreeable with comfort care only. I called patient' son Parth who is listed as # 1 contact and NOK at [phone] and left detailed voice mail with my contact number for call back. I placed order for Hospice evaluation as well. Impression * Acutely ill male with complex medical Hx, affecting his quality of life and shortening life expectancy * Family understands burden of further care and requested comfort care and DNR/ DNI status * Family was not available for me at this time, as they come in in late afternoon Suggestion * Agree with comfort care only and DNR/DNI * Hospice eval today * Patient would benefits best from hospice care at facility where he came from I will be available to speak to family if they call me back or come in during the day.
--- NOTE | 2018-02-20 13:13 | CP.PCM.PN ---
Subjective - Date & Time of Evaluation Date of Evaluation: 02/20/18 Time of Evaluation: 13:10 - Subjective Subjective: responds poorly still Uo around 1500ml still with increased azotemia metabolic acidosis improved with bicarb gtt as per palliative care, family wants hospice and no further dialysis Objective - Vital Signs/Intake and Output Vital Signs (last 24 hours): Temp Pulse Resp BP Pulse Ox 98.7 F 76 16 102/65 96 02/20/18 04:00 02/20/18 01:00 02/19/18 21:00 02/20/18 09:27 02/20/18 04:00 Intake and Output: 02/20/18 02/20/18 06:59 18:59 Intake Total 1200 100 Output Total 401 Balance 799 100 - Medications Medications: Current Medications Carbidopa/Levodopa (Sinemet) 1 tab PO Q8 [facility] Last Admin: 02/20/18 05:57 Dose: Not Given Piperacillin Sod/Tazobactam (Sod 2.25 gm/ Sodium Chloride) 100 mls @ 200 mls/ hr IVPB Q8H [facility] PRN Reason: Protocol Last Admin: 02/20/18 09:27 Dose: 200 mls/hr Norepinephrine Bitartrate 4 mg (/ Sodium Chloride) 254 mls @ 19.05 mls/hr IV .[id number] PRN; Protocol; 5 MCG/MIN PRN Reason: TITRATE PER MD ORDER Sodium Bicarbonate 50 meq/ (Dextrose) 1,050 mls @ 100 mls/hr IV .[id number] [facility] Last Admin: 02/20/18 09:28 Dose: Not Given Metoprolol Tartrate (Lopressor) 25 mg PO DAILY [facility] Last Admin: 02/20/18 09:27 Dose: Not Given Pantoprazole Sodium (Protonix Inj) 40 mg IVP DAILY [facility] Last Admin: 02/20/18 09:27 Dose: 40 mg Vitamin A (Vitamin A & D Oint Ud Foilpak) 2 ea TOP Q8 PRN PRN Reason: Dry mouth Last Admin: 02/19/18 06:15 Dose: 2 ea - Labs Labs: 02/20/18 05:51 02/20/18 05:51 PT 16.9 SECONDS (9.7-12.2) H 02/17/18 13:35 INR 1.5 02/17/18 13:35 APTT 38 SECONDS (21-34) H 02/17/18 13:35 - Constitutional Appears: No Acute Distress, Chronically Ill - Head Exam Head Exam: ATRAUMATIC, NORMAL INSPECTION - Eye Exam Eye Exam: EOMI, Normal appearance - Neck Exam Neck Exam: Normal Inspection. absent: Tenderness - Respiratory Exam Respiratory Exam: Clear to Ausculation Bilateral, NORMAL BREATHING PATTERN - Cardiovascular Exam Cardiovascular Exam: REGULAR RHYTHM, +S1 - GI/Abdominal Exam GI & Abdominal Exam: Soft. absent: Tenderness - Extremities Exam Extremities Exam: Normal Inspection. absent: Tenderness - Neurological Exam Neurological Exam: Altered - Skin Skin Exam: Dry, Warm Assessment and Plan (1) Acute kidney failure Status: Acute (2) Hypernatremia Status: Acute (3) Severe dehydration Status: Acute (4) Parkinsons disease Status: Acute (5) CKD (chronic kidney disease) Status: Acute - Assessment and Plan (Free Text) Plan: Maintenance IV fluids with bicarb for now As per family wishes will not repeat dialysis
--- NOTE | 2018-02-20 13:48 | CP.PCM.PN ---
Subjective - Date & Time of Evaluation Date of Evaluation: 02/20/18 Time of Evaluation: 08:00 - Subjective Subjective: Patient examined in bed, lethargic, unable to fallow simple commends, looking very ill. patient keeps his eyes closed, reacts to tactile stimuli but does not open his eyes. 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 family agreed to DNR/DNI and with Hospice. Objective - Vital Signs/Intake and Output Vital Signs (last 24 hours): Temp Pulse Resp BP Pulse Ox 98.7 F 76 16 102/65 96 02/20/18 04:00 02/20/18 01:00 02/19/18 21:00 02/20/18 09:27 02/20/18 04:00 Intake and Output: 02/20/18 02/20/18 06:59 18:59 Intake Total 1200 700 Output Total 401 125 Balance 799 575 - Medications Medications: Current Medications Carbidopa/Levodopa (Sinemet) 1 tab PO Q8 [facility] Last Admin: 02/20/18 05:57 Dose: Not Given Piperacillin Sod/Tazobactam (Sod 2.25 gm/ Sodium Chloride) 100 mls @ 200 mls/ hr IVPB Q8H [facility] PRN Reason: Protocol Last Admin: 02/20/18 09:27 Dose: 200 mls/hr Sodium Bicarbonate 50 meq/ (Dextrose) 1,050 mls @ 100 mls/hr IV .[id number] [facility] Last Admin: 02/20/18 09:28 Dose: Not Given Metoprolol Tartrate (Lopressor) 25 mg PO DAILY [facility] Last Admin: 02/20/18 09:27 Dose: Not Given Pantoprazole Sodium (Protonix Inj) 40 mg IVP DAILY [facility] Last Admin: 02/20/18 09:27 Dose: 40 mg Vitamin A (Vitamin A & D Oint Ud Foilpak) 2 ea TOP Q8 PRN PRN Reason: Dry mouth Last Admin: 02/19/18 06:15 Dose: 2 ea - Labs Labs: 02/20/18 05:51 02/20/18 05:51 PT 16.9 SECONDS (9.7-12.2) H 02/17/18 13:35 INR 1.5 02/17/18 13:35 APTT 38 SECONDS (21-34) H 02/17/18 13:35 Assessment and Plan (1) Acute kidney failure Status: Acute (2) Electrolyte imbalance Status: Acute (3) Hypernatremia Status: Acute (4) Severe dehydration Status: Acute (5) Alzheimer disease Status: Acute (6) Dehydration Status: Acute (7) Parkinsons disease Status: Acute
[2018-02-21 06:16] LABS: BASO % 0.3 % (0.0-2.0); EOS # 0.2 K/uL (0.0-0.7); EOS % 2.1 % (0.0-4.0); HEMOGLOBIN 10.6 g/dL (12.0-18.0); LYMPH # 1.3 K/uL (1.0-4.3); LYMPH % 12.1 % (20.0-40.0); MEAN CELL VOLUME 92.4 fL (80.0-94.0); MEAN CORPUSCULAR HEMOGLOBIN 31.6 pg (27.0-31.0); MEAN CORPUSCULAR HGB CONC 34.3 g/dL (33.0-37.0); MEAN PLATELET VOLUME 11.7 fL (7.2-11.7); MONO # 0.6 K/uL (0.0-0.8); MONO % 5.2 % (0.0-10.0); NEUT # 8.8 K/uL (1.8-7.0); NEUT % 80.3 % (50.0-75.0); RBC 3.36 Mil/uL (4.40-5.90); RED CELL DISTRIBUTION WIDTH 13.8 % (11.5-14.5)
[2018-02-21 06:45] LABS: ALB/GLOB RATIO 1.1 (1.0-2.1); ALBUMIN 2.4 g/dL (3.5-5.0); CALCIUM 7.9 mg/dl (8.6-10.4)
[2018-02-21] MEDS: Carbidopa/Levodopa 25/250 PO SCH ×3 (08:01→22:00)
--- NOTE | 2018-02-21 08:09 | CP.PCM.PN ---
Subjective - Date & Time of Evaluation Date of Evaluation: 02/21/18 Time of Evaluation: 08:07 - Subjective Subjective: Awake, appears same, nonverbal and contracted Off IV fluids comfort care planned K low, phos elevated Objective - Vital Signs/Intake and Output Vital Signs (last 24 hours): Temp Pulse Resp BP Pulse Ox 97.9 F 76 16 102/65 96 02/21/18 04:00 02/20/18 01:00 02/19/18 21:00 02/20/18 09:27 02/21/18 04:00 Intake and Output: 02/21/18 02/21/18 06:59 18:59 Intake Total 100 Output Total 0 Balance 100 - Medications Medications: Current Medications Carbidopa/Levodopa (Sinemet) 1 tab PO Q8 [facility] Last Admin: 02/21/18 08:01 Dose: Not Given Piperacillin Sod/Tazobactam (Sod 2.25 gm/ Sodium Chloride) 100 mls @ 200 mls/ hr IVPB Q8H [facility] PRN Reason: Protocol Last Admin: 02/20/18 23:57 Dose: 200 mls/hr Metoprolol Tartrate (Lopressor) 25 mg PO DAILY [facility] Last Admin: 02/20/18 09:27 Dose: Not Given Pantoprazole Sodium (Protonix Inj) 40 mg IVP DAILY [facility] Last Admin: 02/20/18 09:27 Dose: 40 mg Vitamin A (Vitamin A & D Oint Ud Foilpak) 2 ea TOP Q8 PRN PRN Reason: Dry mouth Last Admin: 02/19/18 06:15 Dose: 2 ea - Labs Labs: 02/21/18 04:00 02/21/18 06:05 PT 16.9 SECONDS (9.7-12.2) H 02/17/18 13:35 INR 1.5 02/17/18 13:35 APTT 38 SECONDS (21-34) H 02/17/18 13:35 - Constitutional Appears: No Acute Distress, Chronically Ill - Head Exam Head Exam: ATRAUMATIC, NORMAL INSPECTION - Eye Exam Eye Exam: EOMI, Normal appearance - Neck Exam Neck Exam: Normal Inspection. absent: Tenderness - Respiratory Exam Respiratory Exam: Clear to Ausculation Bilateral, NORMAL BREATHING PATTERN - GI/Abdominal Exam GI & Abdominal Exam: Soft. absent: Tenderness - Extremities Exam Extremities Exam: Normal Inspection. absent: Tenderness - Neurological Exam Neurological Exam: Altered - Skin Skin Exam: Dry, Warm Assessment and Plan (1) Acute kidney failure Status: Acute (2) Hypernatremia Status: Resolved (3) Severe dehydration Status: Acute (4) Parkinsons disease Status: Acute (5) CKD (chronic kidney disease) Status: Acute - Assessment and Plan (Free Text) Plan: careful K repletion Small dose of phos-binders
[2018-02-21] MEDS ORDERED: Potassium Chloride 10 mEq ER Tab PO SCH (08:15)
[2018-02-21] MEDS: Piperacillin/Tazobact 2.25 GM in Sodium Chloride 100 ML IVPB SCH ×3 (09:02→23:57)
[2018-02-22 00:30] VITALS: PULSE 72; RESP 15
[2018-02-22] MEDS: Carbidopa/Levodopa 25/250 PO SCH ×3 (05:03→21:26)
[2018-02-22 06:16] LABS: BASO % 0.2 % (0.0-2.0); EOS # 0.1 K/uL (0.0-0.7); EOS % 0.8 % (0.0-4.0); HEMOGLOBIN 11.8 g/dL (12.0-18.0); LYMPH # 0.9 K/uL (1.0-4.3); LYMPH % 6.5 % (20.0-40.0); MEAN CELL VOLUME 93.3 fL (80.0-94.0); MEAN CORPUSCULAR HEMOGLOBIN 31.4 pg (27.0-31.0); MEAN CORPUSCULAR HGB CONC 33.7 g/dL (33.0-37.0); MONO # 0.6 K/uL (0.0-0.8); MONO % 4.2 % (0.0-10.0); NEUT # 12.7 K/uL (1.8-7.0); NEUT % 88.3 % (50.0-75.0); NRBC % 0.1 % (0.0-2.0); PLATELET COUNT 157 K/uL (130-400); RBC 3.75 Mil/uL (4.40-5.90); RED CELL DISTRIBUTION WIDTH 13.8 % (11.5-14.5); WHITE BLOOD COUNT 14.4 K/uL (4.8-10.8)
[2018-02-22 06:43] LABS: ALB/GLOB RATIO 1.2 (1.0-2.1); ALBUMIN 2.8 g/dL (3.5-5.0); CALCIUM 8.4 mg/dl (8.6-10.4)
[2018-02-22] MEDS ORDERED: Dextrose 50% SYRINGE Inj (50 ml) IV STA (07:35)
[2018-02-22] MEDS: Piperacillin/Tazobact 2.25 GM in Sodium Chloride 100 ML IVPB SCH (07:42)
[2018-02-22 08:37] LABS: BANDS 3 % (0-2); MONOCYTE 5 % (0-10); TOTAL CELLS COUNTED 100
[2018-02-22 08:38] LABS: LYMPHOCYTE 5 % (20-40); NEUTROPHIL 87 % (50-75); PLATELET ESTIMATE NORMAL (NORMAL)
[2018-02-22 08:40] LABS: HYPOCHROMIC SLIGHT; LARGE PLATELETS PRESENT
--- NOTE | 2018-02-22 10:42 | CP.PCM.PN ---
Subjective - Date & Time of Evaluation Date of Evaluation: 02/21/18 Time of Evaluation: 19:00 - Subjective Subjective: Pt is wake, on HD, s/p correction of hypernatremia, on ICU observation, afberile ,., no shortness of breath Objective - Vital Signs/Intake and Output Vital Signs (last 24 hours): Temp Pulse Resp BP Pulse Ox 97.5 F L 72 15 96/41 L 96 02/22/18 08:00 02/22/18 00:00 02/22/18 00:00 02/22/18 08:00 02/22/18 00:00 Intake and Output: 02/22/18 02/22/18 06:59 18:59 Intake Total 100 Output Total 300 Balance -200 - Medications Medications: Current Medications Calcium Acetate (Phoslo) 667 mg PO BIDCC [facility] Last Admin: 02/22/18 07:49 Dose: Not Given Carbidopa/Levodopa (Sinemet) 1 tab PO Q8 [facility] Last Admin: 02/22/18 05:03 Dose: Not Given Metoprolol Tartrate (Lopressor) 25 mg PO DAILY [facility] Last Admin: 02/22/18 09:37 Dose: Not Given Pantoprazole Sodium (Protonix Inj) 40 mg IVP DAILY [facility] Last Admin: 02/22/18 09:33 Dose: 40 mg Vitamin A (Vitamin A & D Oint Ud Foilpak) 2 ea TOP Q8 PRN PRN Reason: Dry mouth Last Admin: 02/19/18 06:15 Dose: 2 ea - Labs Labs: 02/22/18 06:07 02/22/18 06:07 PT 16.9 SECONDS (9.7-12.2) H 02/17/18 13:35 INR 1.5 02/17/18 13:35 APTT 38 SECONDS (21-34) H 02/17/18 13:35 - Constitutional Appears: Well - Eye Exam Eye Exam: Normal appearance - ENT Exam ENT Exam: Mucous Membranes Moist, Normal Exam - Neck Exam Neck Exam: Full ROM, Normal Inspection. absent: Lymphadenopathy - Respiratory Exam Respiratory Exam: Clear to Ausculation Bilateral, NORMAL BREATHING PATTERN - Cardiovascular Exam Cardiovascular Exam: REGULAR RHYTHM, +S1, +S2. absent: Murmur - GI/Abdominal Exam GI & Abdominal Exam: Soft, Normal Bowel Sounds. absent: Tenderness - Rectal Exam Rectal Exam: Deferred Assessment and Plan (1) Acute kidney failure Status: Acute (2) Electrolyte imbalance Status: Acute (3) Hypernatremia Status: Resolved (4) Severe dehydration Status: Acute (5) Alzheimer disease Status: Acute (6) Dehydration Status: Acute (7) Parkinsons disease Status: Acute
--- NOTE | 2018-02-22 10:43 | CP.PCM.PN ---
Subjective - Date & Time of Evaluation Date of Evaluation: 02/22/18 Time of Evaluation: 17:00 - Subjective Subjective: Pt seen and examined in ICU, is improving, Na went down, pt is on medical management, creatinine is improving Objective - Vital Signs/Intake and Output Vital Signs (last 24 hours): Temp Pulse Resp BP Pulse Ox 97.5 F L 72 15 96/41 L 96 02/22/18 08:00 02/22/18 00:00 02/22/18 00:00 02/22/18 08:00 02/22/18 00:00 Intake and Output: 02/22/18 02/22/18 06:59 18:59 Intake Total 100 Output Total 300 Balance -200 - Medications Medications: Current Medications Calcium Acetate (Phoslo) 667 mg PO BIDCC [facility] Last Admin: 02/22/18 07:49 Dose: Not Given Carbidopa/Levodopa (Sinemet) 1 tab PO Q8 [facility] Last Admin: 02/22/18 05:03 Dose: Not Given Metoprolol Tartrate (Lopressor) 25 mg PO DAILY [facility] Last Admin: 02/22/18 09:37 Dose: Not Given Pantoprazole Sodium (Protonix Inj) 40 mg IVP DAILY [facility] Last Admin: 02/22/18 09:33 Dose: 40 mg Vitamin A (Vitamin A & D Oint Ud Foilpak) 2 ea TOP Q8 PRN PRN Reason: Dry mouth Last Admin: 02/19/18 06:15 Dose: 2 ea - Labs Labs: 02/22/18 06:07 02/22/18 06:07 PT 16.9 SECONDS (9.7-12.2) H 02/17/18 13:35 INR 1.5 02/17/18 13:35 APTT 38 SECONDS (21-34) H 02/17/18 13:35 - Constitutional Appears: No Acute Distress - Eye Exam Eye Exam: EOMI, Normal appearance, PERRL Pupil Exam: NORMAL ACCOMODATION, PERRL - ENT Exam ENT Exam: Mucous Membranes Moist, Normal Exam - Neck Exam Neck Exam: Full ROM, Normal Inspection. absent: Lymphadenopathy - Respiratory Exam Respiratory Exam: Clear to Ausculation Bilateral, NORMAL BREATHING PATTERN - Cardiovascular Exam Cardiovascular Exam: REGULAR RHYTHM, +S1, +S2. absent: Murmur - GI/Abdominal Exam GI & Abdominal Exam: Soft, Normal Bowel Sounds. absent: Tenderness - Rectal Exam Rectal Exam: Deferred Assessment and Plan (1) Acute kidney failure Status: Acute (2) Electrolyte imbalance Status: Acute (3) Hypernatremia Status: Resolved (4) Severe dehydration Status: Acute (5) Alzheimer disease Status: Acute (6) Dehydration Status: Acute (7) Parkinsons disease Status: Acute
[2018-02-22 23:40] VITALS: BP 104/55; TEMP 97.9
[2018-02-23 05:58] LABS: BASO % 0.3 % (0.0-2.0); EOS # 0.4 K/uL (0.0-0.7); EOS % 2.8 % (0.0-4.0); HEMOGLOBIN 10.3 g/dL (12.0-18.0); LYMPH # 1.3 K/uL (1.0-4.3); LYMPH % 8.6 % (20.0-40.0); MEAN CELL VOLUME 91.7 fL (80.0-94.0); MEAN CORPUSCULAR HEMOGLOBIN 31.5 pg (27.0-31.0); MEAN CORPUSCULAR HGB CONC 34.4 g/dL (33.0-37.0); MONO # 0.7 K/uL (0.0-0.8); MONO % 4.9 % (0.0-10.0); NEUT # 12.1 K/uL (1.8-7.0); NEUT % 83.4 % (50.0-75.0); PLATELET COUNT 173 K/uL (130-400); RBC 3.27 Mil/uL (4.40-5.90); RED CELL DISTRIBUTION WIDTH 13.7 % (11.5-14.5); WHITE BLOOD COUNT 14.5 K/uL (4.8-10.8)
[2018-02-23] MEDS: Carbidopa/Levodopa 25/250 PO SCH (06:00)
[2018-02-23 06:32] LABS: ALB/GLOB RATIO 1.2 (1.0-2.1); ALBUMIN 2.7 g/dL (3.5-5.0)
[2018-02-23 08:14] LABS: LYMPHOCYTE 11 % (20-40); MONOCYTE 3 % (0-10); NEUTROPHIL 86 % (50-75); TOTAL CELLS COUNTED 100
[2018-02-23 08:15] LABS: PLATELET ESTIMATE NORMAL (NORMAL)
--- NOTE | 2018-02-23 10:59 | CP.PCM.PN ---
Subjective - Date & Time of Evaluation Date of Evaluation: 02/23/18 Time of Evaluation: 10:57 - Subjective Subjective: Poorly responsive Azotemia advanced; on comfort care now K remains low Objective - Vital Signs/Intake and Output Vital Signs (last 24 hours): Temp Pulse Resp BP Pulse Ox 97.9 F 72 15 104/55 L 96 02/22/18 20:00 02/22/18 00:00 02/22/18 00:00 02/22/18 20:00 02/22/18 00:00 Intake and Output: 02/23/18 02/23/18 06:59 18:59 Intake Total 480 80 Output Total 250 Balance 230 80 - Medications Medications: Current Medications Calcium Acetate (Phoslo) 667 mg PO BIDCC [facility] Last Admin: 02/22/18 17:03 Dose: Not Given Carbidopa/Levodopa (Sinemet) 1 tab PO Q8 [facility] Last Admin: 02/23/18 06:00 Dose: Not Given Dextrose (Dextrose 10% In Water) 1,000 mls @ 40 mls/hr IV .Q24H [facility] Last Admin: 02/22/18 11:30 Dose: 40 mls/hr Metoprolol Tartrate (Lopressor) 25 mg PO DAILY [facility] Last Admin: 02/22/18 09:37 Dose: Not Given Pantoprazole Sodium (Protonix Inj) 40 mg IVP DAILY [facility] Last Admin: 02/23/18 09:56 Dose: 40 mg Vitamin A (Vitamin A & D Oint Ud Foilpak) 2 ea TOP Q8 PRN PRN Reason: Dry mouth Last Admin: 02/19/18 06:15 Dose: 2 ea - Labs Labs: 02/23/18 05:50 02/23/18 05:50 PT 16.9 SECONDS (9.7-12.2) H 02/17/18 13:35 INR 1.5 02/17/18 13:35 APTT 38 SECONDS (21-34) H 02/17/18 13:35 - Constitutional Appears: Confused, Chronically Ill - Head Exam Head Exam: ATRAUMATIC, NORMAL INSPECTION - Eye Exam Eye Exam: EOMI, Normal appearance - Neck Exam Neck Exam: Normal Inspection. absent: Tenderness - Respiratory Exam Respiratory Exam: Clear to Ausculation Bilateral, NORMAL BREATHING PATTERN - Cardiovascular Exam Cardiovascular Exam: REGULAR RHYTHM, +S1 - GI/Abdominal Exam GI & Abdominal Exam: Soft. absent: Tenderness - Extremities Exam Extremities Exam: Normal Inspection. absent: Tenderness - Neurological Exam Neurological Exam: Altered - Skin Skin Exam: Dry, Warm Assessment and Plan (1) Acute kidney failure Status: Acute (2) Hypernatremia Status: Resolved (3) Severe dehydration Status: Acute (4) Parkinsons disease Status: Acute (5) CKD (chronic kidney disease) Status: Acute - Assessment and Plan (Free Text) Plan: on D10W replete K increase phoslo supportive care
--- NOTE | 2018-02-23 12:40 | CP.PCM.PN ---
Subjective - Date & Time of Evaluation Date of Evaluation: 02/23/18 Time of Evaluation: 12:33 - Subjective Subjective: PATIENT ADMITTED FOR SEVERE DEHYDRATION /HYPERNATREMIA/ HYPERKALEMIA PATIENT WILL NOT CONTINUE DIALYSIS AT THIS TIME / HOSPICE EVAL INITIATED CONSENT SIGN BY THE SON [place] AND [facility] ([facility] FOR HOSPICE AT [facility] [place] DISCUSS WITH THE SON WHO AGREE WITH THE PLAN DISCUSS WITH DR HAWK WHO CLEAR FOR DC TO [facility] [place] FOR [facility] Objective - Vital Signs/Intake and Output Vital Signs (last 24 hours): Temp Pulse Resp BP Pulse Ox 97.9 F 72 15 104/55 L 96 02/22/18 20:00 02/22/18 00:00 02/22/18 00:00 02/22/18 20:00 02/22/18 00:00 Intake and Output: 02/23/18 02/23/18 06:59 18:59 Intake Total 480 80 Output Total 250 Balance 230 80 - Medications Medications: Current Medications Calcium Acetate (Phoslo) 667 mg PO TID [facility] Carbidopa/Levodopa (Sinemet) 1 tab PO Q8 [facility] Last Admin: 02/23/18 06:00 Dose: Not Given Dextrose (Dextrose 10% In Water) 1,000 mls @ 40 mls/hr IV .Q24H [facility] Last Admin: 02/22/18 11:30 Dose: 40 mls/hr Metoprolol Tartrate (Lopressor) 25 mg PO DAILY [facility] Last Admin: 02/22/18 09:37 Dose: Not Given Pantoprazole Sodium (Protonix Inj) 40 mg IVP DAILY [facility] Last Admin: 02/23/18 09:56 Dose: 40 mg Vitamin A (Vitamin A & D Oint Ud Foilpak) 2 ea TOP Q8 PRN PRN Reason: Dry mouth Last Admin: 02/19/18 06:15 Dose: 2 ea - Labs Labs: 02/23/18 05:50 02/23/18 05:50 PT 16.9 SECONDS (9.7-12.2) H 02/17/18 13:35 INR 1.5 02/17/18 13:35 APTT 38 SECONDS (21-34) H 02/17/18 13:35
--- NOTE | 2018-02-24 10:45 | CP.PCM.DIS ---
Provider - Provider Date of Admission: 02/16/18 23:03 Attending physician: Adrian Parekh MD Time Spent in preparation of Discharge (in minutes): 45 Diagnosis - Discharge Diagnosis (1) Acute kidney failure Status: Acute (2) Electrolyte imbalance Status: Acute (3) Severe dehydration Status: Acute (4) Alzheimer disease Status: Acute (5) Dehydration Status: Acute (6) Parkinsons disease Status: Acute Hospital Course - Lab Results Lab Results: Micro Results 02/17/18 03:40 Blood Blood Culture - Final NO GROWTH AFTER 5 DAYS 02/17/18 03:40 Blood Gram Stain - Final TEST NOT PERFORMED 02/17/18 03:40 Blood Blood Culture - Final NO GROWTH AFTER 5 DAYS 02/17/18 03:40 Blood Gram Stain - Final TEST NOT PERFORMED 02/17/18 10:38 Nose MRSA Culture (Admit) - Final 02/17/18 19:49 Urine,Catheterized Urine Culture - Final No Growth (<1,000 CFU/ML) Most Recent Lab Values WBC 14.5 K/uL (4.8-10.8) H 02/23/18 05:50 RBC 3.27 Mil/uL (4.40-5.90) L 02/23/18 05:50 Hgb 10.3 g/dL (12.0-18.0) L 02/23/18 05:50 Hct 30.0 % (35.0-51.0) L 02/23/18 05:50 MCV 91.7 fL (80.0-94.0) 02/23/18 05:50 MCH 31.5 pg (27.0-31.0) H 02/23/18 05:50 MCHC 34.4 g/dL (33.0-37.0) 02/23/18 05:50 RDW 13.7 % (11.5-14.5) 02/23/18 05:50 Plt Count 173 K/uL (130-400) 02/23/18 05:50 MPV 11.0 fL (7.2-11.7) 02/23/18 05:50 Neut % (Auto) 83.4 % (50.0-75.0) H 02/23/18 05:50 Lymph % (Auto) 8.6 % (20.0-40.0) L 02/23/18 05:50 [place] % (Auto) 4.9 % (0.0-10.0) 02/23/18 05:50 Eos % (Auto) 2.8 % (0.0-4.0) 02/23/18 05:50 Baso % (Auto) 0.3 % (0.0-2.0) 02/23/18 05:50 Neut # (Auto) 12.1 K/uL (1.8-7.0) H 02/23/18 05:50 Lymph # (Auto) 1.3 K/uL (1.0-4.3) 02/23/18 05:50 [place] # (Auto) 0.7 K/uL (0.0-0.8) 02/23/18 05:50 Eos # (Auto) 0.4 K/uL (0.0-0.7) 02/23/18 05:50 Baso # (Auto) 0.0 K/uL (0.0-0.2) 02/23/18 05:50 Neutrophils % (Manual) 86 % (50-75) H 02/23/18 05:50 Band Neutrophils % 3 % (0-2) H 02/22/18 06:07 Lymphocytes % (Manual) 11 % (20-40) L 02/23/18 05:50 Monocytes % (Manual) 3 % (0-10) 02/23/18 05:50 Differential Comment 02/21/18 04:00 Platelet Estimate Normal (NORMAL) 02/23/18 05:50 Large Platelets Present 02/22/18 06:07 RBC Morphology Normal 02/23/18 05:50 Hypochromasia (manual) Slight 02/22/18 06:07 Anisocytosis (manual) Slight 02/16/18 22:00 PT 16.9 SECONDS (9.7-12.2) H 02/17/18 13:35 INR 1.5 02/17/18 13:35 APTT 38 SECONDS (21-34) H 02/17/18 13:35 pO2 13 mm/Hg (30-55) L 02/16/18 21:52 VBG pH 7.31 (7.32-7.43) L 02/16/18 21:52 VBG pCO2 33 mmHg (40-60) L 02/16/18 21:52 VBG HCO3 15.9 mmol/L 02/16/18 21:52 VBG Total CO2 17.6 mmol/L (22-28) L 02/16/18 21:52 VBG O2 Sat (Calc) 24.9 % (40-65) L 02/16/18 21:52 VBG Base Excess -8.6 mmol/L (0.0-2.0) L 02/16/18 21:52 VBG Potassium 4.8 mmol/L (3.6-5.2) 02/16/18 21:52 Sodium 165.0 mmol/l (132-148) H* 02/16/18 21:52 Chloride 133.0 mmol/L (98-107) H 02/16/18 21:52 Glucose 110 mg/dl (75-110) 02/16/18 21:52 Lactate 2.2 mmol/L (0.7-2.1) H 02/16/18 21:52 Crit Value Called To mckenzie Nettles md 02/16/18 21:52 Crit Value Called By Alba 02/16/18 21:52 Crit Value Read Back Y 02/16/18 21:52 Blood Gas Notified Time 215702/16/18 21:52 Sodium 145 mmol/L (132-148) 02/23/18 05:50 Potassium 3.0 mmol/L (3.6-5.2) L 02/23/18 05:50 Chloride 106 mmol/L (98-107) 02/23/18 05:50 Carbon Dioxide 21 mmol/L (22-30) L 02/23/18 05:50 Anion Gap 22 (10-20) H 02/23/18 05:50 BUN 121 mg/dL (9-20) H* 02/23/18 05:50 Creatinine 7.0 mg/dL (0.8-1.5) H 02/23/18 05:50 Est GFR ( Amer) 9 02/23/18 05:50 Est GFR (Non-Af Amer) 8 02/23/18 05:50 POC Glucose (mg/dL) 120 mg/dL (65-110) H 02/23/18 11:42 Random Glucose 131 mg/dL (75-110) H 02/23/18 05:50 Lactic Acid 1.2 mmol/L (0.7-2.1) 02/17/18 13:00 Calcium 8.0 mg/dl (8.6-10.4) L 02/23/18 05:50 Phosphorus 8.1 mg/dL (2.5-4.5) H 02/23/18 05:50 Magnesium 1.8 mg/dL (1.6-2.3) 02/23/18 05:50 Total Bilirubin 0.6 mg/dL (0.2-1.3) 02/23/18 05:50 AST 28 U/L (17-59) 02/23/18 05:50 ALT 36 U/L (21-72) 02/23/18 05:50 Alkaline Phosphatase 115 U/L (38-126) 02/23/18 05:50 Total Protein 5.1 g/dL (6.3-8.3) L 02/23/18 05:50 Albumin 2.7 g/dL (3.5-5.0) L 02/23/18 05:50 Globulin 2.4 gm/dL (2.2-3.9) 02/23/18 05:50 Albumin/Globulin Ratio 1.2 (1.0-2.1) 02/23/18 05:50 Lipase 54 U/L (23-300) 02/16/18 22:00 Procalcitonin 2.32 NG/ML (0.19-0.49) H 02/17/18 13:35 Venous Blood Potassium 4.8 mmol/L (3.6-5.2) 02/16/18 21:52 Urine Color Radha (YELLOW) 02/16/18 21:29 Urine Clarity Hazy (Clear) 02/16/18 21:29 Urine pH 5.0 (5.0-8.0) 02/16/18 21:29 Ur Specific [place] 1.018 (1.003-1.030) 02/16/18 21:29 Urine Protein Negative mg/dL (NEGATIVE) 02/16/18 21:29 Urine Glucose (UA) Normal mg/dL (Normal) 02/16/18 21:29 Urine Ketones Negative mg/dL (NEGATIVE) 02/16/18 21:29 Urine Blood Negative (NEGATIVE) 02/16/18 21:29 Urine Nitrate Negative (NEGATIVE) 02/16/18 21:29 Urine Bilirubin Negative (NEGATIVE) 02/16/18 21:29 Urine Urobilinogen Normal mg/dL (0.2-1.0) 02/16/18 21:29 Ur Leukocyte Esterase Trace [place]/uL (Negative) 02/16/18 21:29 Urine WBC (Auto) 6 /hpf (0-5) H 02/16/18 21:29 Urine RBC (Auto) 4 /hpf (0-3) H 02/16/18 21:29 Ur Squamous Epith Cells < 1 /hpf (0-5) 02/16/18 21:29 Amorphous Sediment Rare /ul (<OCC) H 02/16/18 21:29 Urine Bacteria Rare (<OCC) 02/16/18 21:29 Hep Bs Antigen Negative (NEGATIVE) 02/18/18 18:51 Hep Bs Antibody Indeterminate (NEGATIVE) 02/18/18 18:51 Hepatitis C Antibody Negative (NEGATIVE) 02/18/18 18:51 Discharge Exam - Head Exam Head Exam: ATRAUMATIC, NORMAL INSPECTION Discharge Plan - Follow Up Plan Condition: CRITICAL Disposition: HOSPICE - MEDICAL FACILITY Instructions: Dehydration, Adult (DC), Hyperkalemia (DC), Acute Kidney Failure (DC), Chronic Kidney Disease (DC) Additional Instructions: DISCHARGE TO [facility] [place] UNDER THE SERVICE OF DR PAREKH UNDER [facility] CALL DR PAREKH FOR FURTHER ORDER Referrals: Estuardo De Los Santos MD [Staff Provider] - Adrian Parekh MD [Staff Provider] -
== END 2018-02-23 15:30 | disposition hospice, inpatient (51) | DRG 682 ==
LOC: C.ER 21:20 → C.9E 23:03 → C.6T 02-17 00:57 → C.9E 02-17 01:47 → C.9I 02-17 05:37
PROVIDERS: ADMIT Internal Medicine; ATTEND Internal Medicine
PROC: 02HV33Z Insertion of Infusion Device into Superior Vena Cava, Percutaneous Approach (ICD-10-PCS; principal; 2018-02-18)
PROC: 5A1D70Z Performance of Urinary Filtration, Intermittent, Less than 6 Hours Per Day (ICD-10-PCS; 2018-02-19)
DX: N17.9 Acute kidney failure, unspecified (principal); G93.41 Metabolic encephalopathy; I12.0 Hypertensive chronic kidney disease with stage 5 chronic kidney disease or end stage renal disease; E87.0 Hyperosmolality and hypernatremia; E87.2 Acidosis; E86.0 Dehydration; D72.829 Elevated white blood cell count, unspecified; E78.5 Hyperlipidemia, unspecified; N18.6 End stage renal disease; E87.5 Hyperkalemia; G20 Parkinson's disease; F02.80 Dementia in other diseases classified elsewhere, unspecified severity, without behavioral disturbance, psychotic disturbance, mood disturbance, and anxiety; G30.9 Alzheimer's disease, unspecified; Z51.5 Encounter for palliative care; Z66 Do not resuscitate; Z99.2 Dependence on renal dialysis